=== PATIENT | female | born 1935 | race Caucasian/White ===

== ENCOUNTER → 2017-01-18 | Outpatient (REF) | payer MEDICARE, OTHER ==
[~2017-01-18] MED LIST: ADV100INH INH; ALBU17IN INH; ALPR0.25 PO; ASPI81CH32 PO; ATOR1TAB21 PO; CENTTAB12 PO; CEVI30CAP PO; CITRTAB14 PO; LANS30CA PO; OXYC1TAB23 PO; PERC5TAB6 PO; RAMI25CA PO; ROPI1TAB PO; SITA50TAB PO; TYLE325T5 PO; VITA-121 PO; VITA10002 PO; VITA1TAB23 PO; VITMTA PO; XALA0.002 OU
== END ==
LOC: M LAB REF 16:56
PROVIDERS: ATTEND Nurse Practitioner Adult Health
DX: R05 Cough (principal)

== ENCOUNTER → 2017-01-19 | Outpatient (CLI) | payer MEDICARE, OTHER ==
--- NOTE | 2017-01-19 09:06 | REP ---
CHEST X-RAY: Two views. HISTORY: Cough. Comparison study September 29, 2016. FINDINGS: There is a moderate levoconvex lower thoracic upper lumbar rotoscoliosis again noted. The patient is status post vertebroplasty in one of the mid-thoracic vertebrae which is essentially completely collapsed. There is a mild gibbous on lateral radiograph. There are clips in the upper abdomen. A bipolar pacemaker is seen in the right heart via the left side. Mild cardiac enlargement is again noted. The aorta is rather tortuous. Pleural angles are sharp. No infiltrate is seen. IMPRESSION: Mild cardiomegaly. Pacemaker. Scoliosis and prior vertebroplasty. Otherwise no acute disease. Signed by James Rangel MD 01/19/2017 12:00 P
== END ==
LOC: M SMT 08:23
PROVIDERS: ATTEND Nurse Practitioner Adult Health
DX: R05 Cough (principal); I51.7 Cardiomegaly; Z95.0 Presence of cardiac pacemaker; M41.9 Scoliosis, unspecified

== ENCOUNTER → 2017-02-02 | Outpatient (CLI) | payer MEDICARE, OTHER ==
[2017-02-02 11:46] LABS: CALCIUM LEVEL 9.3 MG/DL (8.8-10.2); CREATININE FOR GFR 1.3 MG/DL (0.55-1.02); GLOMERULAR FILTRATION RATE 41.7 (>32); POTASSIUM SERUM 4.8 MEQ/L (3.5-5.1)
--- NOTE | 2017-02-02 16:56 | REP ---
CHEST, TWO VIEWS: HISTORY: Left eye cataract. COMPARISON: 01/19/2017 The lungs are clear. The cardiac silhouette is enlarged. The pulmonary vasculature is normal in appearance. The patient is status-post kyphoplasty of a mid thoracic vertebral body. A cardiac pace maker is present. IMPRESSION: Cardiomegaly. Signed by Yordan Montoya MD 02/02/2017 04:57 P
--- NOTE | 2017-02-02 22:33 | ECGEPIP ---
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
== END ==
LOC: M LAB 09:57
PROVIDERS: ATTEND Ophthalmology
DX: Z01.818 Encounter for other preprocedural examination (principal); H25.12 Age-related nuclear cataract, left eye; E11.9 Type 2 diabetes mellitus without complications; J44.9 Chronic obstructive pulmonary disease, unspecified; I51.7 Cardiomegaly

== ENCOUNTER → 2017-02-11 | Day surgery (SDC) | payer MEDICARE, OTHER ==
[~2017-02-11] VITALS: Ht 154.9 cm; Wt 89.8 kg
[~2017-02-11] MED LIST changes: +ACETYLCHOLINE OPHTH SOLN 1% 2ML (MIOCHOL-E) As Ordered ONE; +BALANCED SALT IRRIGATION SOLUTION 500ML BAG (FOR OR EYE MACHINE) As Ordered ONE; +CEFUROXIME 1MG/0.1ML INTRACAMERAL INJ As Ordered ONE; +D5W/0.2% SODIUM CHLORIDE 250 ML IV ONE; +HEALON DUET (HEALON 10MG/ML 0.55ML & HEALON ENDOCOAT 30MG/ML 0.85ML) As Ordered ONE; +LIDOCAINE 0.75%/EPINEPHRINE 0.025% IN BSS 1ML SYR INTRACAMERAL (OR ONLY) As Ordered ONE; +LIDOCAINE 4% INJ 5 ML AMP As Ordered ONE; +MIDAZOLAM INJ 2 MG/2 ML VIAL (J2250) As Ordered ONE; +OFLOXACIN 0.3 % (OCUFLOX) OPTH SOL 5ML OS ONE; +PHENYLEPHRINE 2.5% OPHTH SOL 2ML OS ONE; +POVIDONE-IODINE 5% OPHTH PREP SOL 30ML As Ordered ONE; +PROPARACAINE 0.5% OPHTH SOL 15ML OS ONE; +TOBRADEX OPHTH OINT 3.5 GM As Ordered ONE; +TROPICAMIDE 1% OPHTH SOLN 2ML OS ONE
[2017-02-11 12:10] VITALS: BP 134/88
--- NOTE | 2017-02-11 19:09 | RO ---
DATE OF PROCEDURE: 02/11/2017 PREOPERATIVE DIAGNOSIS: Visually significant nuclear sclerotic cataract left eye. POSTOPERATIVE DIAGNOSIS: Visually significant nuclear sclerotic cataract left eye. PROCEDURE: Cataract extraction with use of phacoemulsification, and placement of intraocular lens, AU00T0 20.0D , left eye. SURGEON: Elijah Ha DO VIAL GAUGER: ANESTHESIA: Local with monitored anesthesia care (MAC). COMPLICATIONS: None. POSTOPERATIVE CONDITION: Stable. INDICATION FOR SURGERY: Blurred vision left eye affecting patient's activities of daily living. DESCRIPTION OF PROCEDURE: The patient was seen in the preoperative area and properly identified. The correct operative eye was identified and marked. Attention was turned to that eye. The patient received topical antibiotics in the preoperative area. The patient then received topical dilating drops consisting of Tropicamide and Phenylephrine. The patient was then transferred to the operating room. The correct side was re-identified. The patient received topical anesthetics and antibiotics on the surface of the eye. The eye was prepped and draped in a sterile fashion. The upper and lower eyelids were isolated with Tegaderm tape, and the lids were held open with an adjustable speculum. Using a sideport blade, a paracentesis incision was made. Intraocular preservative-free lidocaine was then injected into the anterior chamber. Viscoelastic was then injected into the anterior chamber through the paracentesis. Using a 2.65 mm sharp-tipped keratome, the anterior chamber was entered via a temporal clear corneal incision. A continuous curvilinear capsulorrhexis was created with the aid of a 26g cystotome and utrata forceps. Hydrodissection was performed with balanced salt solution (BSS) on a blunt cannula until the nucleus was freely mobile. The crystalline lens was phacoemulsified and aspirated. Additional cohesive viscoelastic was placed into the capsular bag to deepen it. A [id number] lens D was placed into the capsular bag and confirmed by visualizing the continuous curvilinear capsulorrhexis. Additional irrigation and aspiration was used to remove cortical material and remaining viscoelastic. The clear corneal incision was hydrated with BSS on a blunt cannula. The lens was well positioned. The incisions were then tested for leaks and found to be negative. The eye was then palpated for appropriate pressure and adjusted accordingly with BSS. The eyelid speculum was carefully removed. A shield was then secured over the eye. The patient tolerated the procedure well and was discharged to the recovery unit in a stable condition. DEBRA
== END | disposition home or self-care (01) ==
LOC: M SDC 08:49
PROVIDERS: ATTEND Ophthalmology
DX: H25.12 Age-related nuclear cataract, left eye (principal); E11.9 Type 2 diabetes mellitus without complications; K21.9 Gastro-esophageal reflux disease without esophagitis; K44.9 Diaphragmatic hernia without obstruction or gangrene; J44.9 Chronic obstructive pulmonary disease, unspecified; F41.9 Anxiety disorder, unspecified; Z95.0 Presence of cardiac pacemaker; Z79.82 Long term (current) use of aspirin; Z87.891 Personal history of nicotine dependence; K58.8 Other irritable bowel syndrome; Z88.2 Allergy status to sulfonamides; Z88.8 Allergy status to other drugs, medicaments and biological substances
CPT/HCPCS: 66984; J2250; V2632

== ENCOUNTER → 2017-02-25 | Day surgery (SDC) | payer MEDICARE, OTHER ==
[~2017-02-25] VITALS: Ht 154.9 cm; Wt 89.8 kg
[~2017-02-25] MED LIST changes: +DUOVISC (0.50ML VISCOAT/0.55ML PROVISC) OPHTH KIT As Ordered ONE; -HEALON DUET (HEALON 10MG/ML 0.55ML & HEALON ENDOCOAT 30MG/ML 0.85ML) As Ordered ONE; +MECL-68 PO; -MIDAZOLAM INJ 2 MG/2 ML VIAL (J2250) As Ordered ONE; +OFLOXACIN 0.3 % (OCUFLOX) OPTH SOL 5ML OD ONE; -OFLOXACIN 0.3 % (OCUFLOX) OPTH SOL 5ML OS ONE; +PERC5TAB12 PO; -PERC5TAB6 PO; +PHENYLEPHRINE 2.5% OPHTH SOL 2ML OD ONE; -PHENYLEPHRINE 2.5% OPHTH SOL 2ML OS ONE; +PROPARACAINE 0.5% OPHTH SOL 15ML OD ONE; -PROPARACAINE 0.5% OPHTH SOL 15ML OS ONE; -TOBRADEX OPHTH OINT 3.5 GM As Ordered ONE; +TROPICAMIDE 1% OPHTH SOLN 2ML OD ONE; -TROPICAMIDE 1% OPHTH SOLN 2ML OS ONE; -XALA0.002 OU; +XALA0.007 OU
== END | disposition home or self-care (01) ==
LOC: M SDC 08:19
PROVIDERS: ATTEND Ophthalmology
DX: H25.11 Age-related nuclear cataract, right eye (principal); Z53.8 Procedure and treatment not carried out for other reasons

== ENCOUNTER → 2017-03-11 | Day surgery (SDC) | payer MEDICARE, OTHER ==
[~2017-03-11] VITALS: Ht 154.9 cm; Wt 89.8 kg
[~2017-03-11] MED LIST changes: -D5W/0.2% SODIUM CHLORIDE 250 ML IV ONE; +LR 1,000 ML IV SCH; +LR 500 ML IV SCH; +MIDAZOLAM INJ 2 MG/2 ML VIAL (J2250) As Ordered ONE; +ONDANSETRON 4MG/2ML VIAL (J2405) IV PRN; +fentaNYL 100 MCG/2 ML INJECTION (J3010) As Ordered ONE
[2017-03-11 12:35] VITALS: BP 101/51
--- NOTE | 2017-03-12 22:32 | RO ---
DATE OF PROCEDURE: 03/11/2017 PREOPERATIVE DIAGNOSIS: Visually significant nuclear sclerotic cataract right eye. POSTOPERATIVE DIAGNOSIS: Visually significant nuclear sclerotic cataract right eye. PROCEDURE: Cataract extraction with use of phacoemulsification, and placement of intraocular lens, AU00T0, 20.0D , right eye. SURGEON: Elijah Ha DO MANAGER ENTRY: ANESTHESIA: Local with monitored anesthesia care (MAC). COMPLICATIONS: None. POSTOPERATIVE CONDITION: Stable. INDICATION FOR SURGERY: Blurred vision right eye affecting patient's activities of daily living. DESCRIPTION OF PROCEDURE: The patient was seen in the preoperative area and properly identified. The correct operative eye was identified and marked. Attention was turned to that eye. The patient received topical antibiotics in the preoperative area. The patient then received topical dilating drops consisting of Tropicamide and Phenylephrine. The patient was then transferred to the operating room. The correct side was re-identified. The patient received topical anesthetics and antibiotics on the surface of the eye. The eye was prepped and draped in a sterile fashion. The upper and lower eyelids were isolated with Tegaderm tape, and the lids were held open with an adjustable speculum. Using a sideport blade, a paracentesis incision was made. Intraocular preservative-free lidocaine was then injected into the anterior chamber. Viscoelastic was then injected into the anterior chamber through the paracentesis. Using a 2.6 mm sharp-tipped keratome, the anterior chamber was entered via a temporal clear corneal incision. A continuous curvilinear capsulorrhexis was created with the aid of a 26g cystotome and utrata forceps. Hydrodissection was performed with balanced salt solution (BSS) on a blunt cannula until the nucleus was freely mobile. The crystalline lens was phacoemulsified and aspirated. Additional cohesive viscoelastic was placed into the capsular bag to deepen it. An AU00T0, 20.0D lens was placed into the capsular bag and confirmed by visualizing the continuous curvilinear capsulorrhexis. Additional irrigation and aspiration was used to remove cortical material and remaining viscoelastic. The clear corneal incision was hydrated with BSS on a blunt cannula. The lens was well positioned. The incisions were then tested for leaks and found to be negative. The eye was then palpated for appropriate pressure and adjusted accordingly with BSS. The eyelid speculum was carefully removed. A shield was placed over the eye. The patient tolerated the procedure well and was discharged to the recovery unit in a stable condition. DEBRA
== END | disposition home or self-care (01) ==
LOC: M SDC 09:52 → EEVIPCON 11:45
PROVIDERS: ATTEND Ophthalmology
DX: H25.11 Age-related nuclear cataract, right eye (principal); E78.5 Hyperlipidemia, unspecified; J44.9 Chronic obstructive pulmonary disease, unspecified; Z79.82 Long term (current) use of aspirin; Z88.8 Allergy status to other drugs, medicaments and biological substances; Z88.2 Allergy status to sulfonamides; Z95.0 Presence of cardiac pacemaker; F41.9 Anxiety disorder, unspecified
CPT/HCPCS: 66984; J2250; J3010; V2632

== ENCOUNTER 2017-05-06 14:50 | Emergency (ER) | payer MEDICARE, OTHER ==
[~2017-05-06] VITALS: Ht 162.6 cm; Wt 104.5 kg
[~2017-05-06 14:50] MED LIST changes: -ACETYLCHOLINE OPHTH SOLN 1% 2ML (MIOCHOL-E) As Ordered ONE; -BALANCED SALT IRRIGATION SOLUTION 500ML BAG (FOR OR EYE MACHINE) As Ordered ONE; -CEFUROXIME 1MG/0.1ML INTRACAMERAL INJ As Ordered ONE; -DUOVISC (0.50ML VISCOAT/0.55ML PROVISC) OPHTH KIT As Ordered ONE; -LIDOCAINE 0.75%/EPINEPHRINE 0.025% IN BSS 1ML SYR INTRACAMERAL (OR ONLY) As Ordered ONE; -LIDOCAINE 4% INJ 5 ML AMP As Ordered ONE; -LR 1,000 ML IV SCH; -LR 500 ML IV SCH; -MECL-68 PO; -MIDAZOLAM INJ 2 MG/2 ML VIAL (J2250) As Ordered ONE; -OFLOXACIN 0.3 % (OCUFLOX) OPTH SOL 5ML OD ONE; -ONDANSETRON 4MG/2ML VIAL (J2405) IV PRN; -PHENYLEPHRINE 2.5% OPHTH SOL 2ML OD ONE; -POVIDONE-IODINE 5% OPHTH PREP SOL 30ML As Ordered ONE; -PROPARACAINE 0.5% OPHTH SOL 15ML OD ONE; -TROPICAMIDE 1% OPHTH SOLN 2ML OD ONE; -fentaNYL 100 MCG/2 ML INJECTION (J3010) As Ordered ONE
--- NOTE | 2017-05-06 15:41 | REP ---
CT Head without contrast HISTORY: Dizziness COMPARISON: 09/29/2016 Areas of decreased attenuation are present in the periventricular white matter. This represents small-vessel ischemic disease. Calcifications are present in the ursula. There is no intraparenchymal hemorrhage, acute infarct, mass or midline shift. The ventricular system and cortical sulci as well as subarachnoid space in the posterior fossa are dilated consistent with mild volume loss. There is no extra cerebral collection. There is hyperostosis frontalis interna. There is no fracture. The visualized sinuses are clear. IMPRESSION: 1. Small vessel ischemic disease. 2. Mild volume loss. Signed by Yordan Montoya MD 05/06/2017 03:33 P
[2017-05-06] MEDS ORDERED: ONDANSETRON 4 MG ORAL DISINTEGRATING TAB (S0181) PO ONE (15:45)
[2017-05-06] MEDS ORDERED: MECLIZINE 25 MG TABLET PO ONE (15:45)
[2017-05-06 18:29] LABS: CALCIUM LEVEL 8.8 MG/DL (8.8-10.2); CREATININE FOR GFR 1.36 MG/DL (0.55-1.02); GLOMERULAR FILTRATION RATE 39.5 (>32); POTASSIUM SERUM 4.5 MEQ/L (3.5-5.1)
[2017-05-06] MEDS ORDERED: MECL-68 PO (18:30)
[2017-05-06 18:58] VITALS: BP 136/60
[2017-05-06 21:05] LABS: BASO % 0.4 % (0.0-1.0); EOS # 0.5 K/mm3 (0.0-0.50); EOS % 5.6 % (0.0-3.0); LARGE UNSTAINED CELL # 0.1 K/mm3 (0.0-0.4); LARGE UNSTAINED CELL % 1.1 % (0.0-4.0); LYMPH # 1.2 K/mm3 (1.5-4.5); MEAN CORPUSCULAR HEMOGLOBIN 26.6 pg (27.0-33.0); MEAN CORPUSCULAR VOLUME 83.1 fl (80.0-96.0); MONO # 0.4 K/mm3 (0.0-0.8); MONO % 4.6 % (0.0-5.0); NEUTROPHILS # 6.5 K/mm3 (1.8-7.7); NEUTROPHILS % 74.3 % (36.0-66.0); PLATELET COUNT, AUTOMATED 224 k/mm3 (150-450); RED CELL DISTRIBUTION WIDTH 14.4 % (11.5-14.5); WHITE BLOOD COUNT 8.7 K/mm3 (4.0-10.0)
== END 2017-05-06 19:00 | disposition home or self-care (01) ==
LOC: M ED 14:50
DX: H83.09 Labyrinthitis, unspecified ear (principal); E11.9 Type 2 diabetes mellitus without complications; I10 Essential (primary) hypertension; G47.33 Obstructive sleep apnea (adult) (pediatric); G25.81 Restless legs syndrome; F95.9 Tic disorder, unspecified; M48.00 Spinal stenosis, site unspecified; J44.9 Chronic obstructive pulmonary disease, unspecified; Z95.0 Presence of cardiac pacemaker; Z88.8 Allergy status to other drugs, medicaments and biological substances; Z88.5 Allergy status to narcotic agent; Z88.1 Allergy status to other antibiotic agents; Z88.2 Allergy status to sulfonamides; Z79.899 Other long term (current) drug therapy; Z79.84 Long term (current) use of oral hypoglycemic drugs; Z79.82 Long term (current) use of aspirin; Z79.51 Long term (current) use of inhaled steroids

== ENCOUNTER 2017-11-27 09:14 | Emergency (ER) | payer MEDICARE, OTHER | END 2017-11-27 14:04 | disposition home or self-care (01) | LOC: M ED 09:14 | DX: S39.012A Strain of muscle, fascia and tendon of lower back, initial encounter (principal); S70.01XA Contusion of right hip, initial encounter; S70.02XA Contusion of left hip, initial encounter; S93.401A Sprain of unspecified ligament of right ankle, initial encounter; W19.XXXA Unspecified fall, initial encounter; Y92.099 Unspecified place in other non-institutional residence as the place of occurrence of the external cause; Y93.9 Activity, unspecified; I10 Essential (primary) hypertension; H40.9 Unspecified glaucoma; J44.9 Chronic obstructive pulmonary disease, unspecified; Z87.01 Personal history of pneumonia (recurrent); Z90.49 Acquired absence of other specified parts of digestive tract; M85.80 Other specified disorders of bone density and structure, unspecified site; M77.31 Calcaneal spur, right foot; M17.11 Unilateral primary osteoarthritis, right knee; M17.12 Unilateral primary osteoarthritis, left knee; M43.16 Spondylolisthesis, lumbar region; M19.079 Primary osteoarthritis, unspecified ankle and foot; Z79.82 Long term (current) use of aspirin; Z79.899 Other long term (current) drug therapy; Z88.5 Allergy status to narcotic agent; Z88.2 Allergy status to sulfonamides; Z88.8 Allergy status to other drugs, medicaments and biological substances | CPT/HCPCS: 72110 ==

== ENCOUNTER 2017-11-29 06:19 | Inpatient (IN) | payer MEDICARE, OTHER ==
[2017-11-29 08:12] LABS: BASO # 0.1 10^3/uL (0.0-0.2); BASO % 0.4 % (0.0-1.0); EOS # 0.1 10^3/uL (0.0-0.50); EOS % 0.4 % (0.0-3.0); HEMATOCRIT 38.9 % (36.0-47.0); HEMOGLOBIN 12.3 g/dl (12.0-16.0); IMMATURE GRANULOCYTE % 0.6 % (0-3.0); LYMPH # 1.2 10^3/uL (1.5-4.5); LYMPH % 8.7 % (24.0-44.0); MEAN CORPUSCULAR HEMOGLOBIN 25.8 pg (27.0-33.0); MEAN CORPUSCULAR HGB CONC 31.6 g/dl (32.0-36.5); MEAN CORPUSCULAR VOLUME 81.7 fl (80.0-96.0); MONO # 0.9 10^3/uL (0.0-0.8); MONO % 6.5 % (0.0-5.0); NEUTROPHILS # 11.5 10^3/uL (1.8-7.7); NEUTROPHILS % 83.4 % (36.0-66.0); PLATELET COUNT, AUTOMATED 237 10^3/uL (150-450); RED BLOOD COUNT 4.76 10^6/uL (4.00-5.40); RED CELL DISTRIBUTION WIDTH 15.1 % (11.5-14.5); WHITE BLOOD COUNT 13.7 10^3/uL (4.0-10.0)
[2017-11-29 08:24] LABS: ANION GAP 7 MEQ/L (8-16); BLOOD UREA NITROGEN 25 MG/DL (7-18); CALCIUM LEVEL 9.3 MG/DL (8.8-10.2); CARBON DIOXIDE LEVEL 28 MEQ/L (21-32); CHLORIDE LEVEL 105 MEQ/L (98-107); CREATININE FOR GFR 1.23 MG/DL (0.55-1.30); GLOMERULAR FILTRATION RATE 44.4 (>32); GLUCOSE, FASTING 151 MG/DL (70-100); POTASSIUM SERUM 3.8 MEQ/L (3.5-5.1); SODIUM LEVEL 140 MEQ/L (136-145); URIC ACID 7.2 MG/DL (2.6-6.0)
[2017-11-29 08:46] LABS: ERYTHROCYTE SEDIMENTATION RATE 62 mm/hr (0-30)
[2017-11-29] MEDS: VITAMIN D 1,000 INTERNATIONAL UNITS TABLET PO (09:00)
[2017-11-29] MEDS ORDERED: ONDANSETRON 4MG/2ML VIAL (J2405) IV (10:15)
[2017-11-29] MEDS: DOCUSATE SODIUM 100 MG CAP PO ×2 (10:31→21:03)
[2017-11-29] MEDS ORDERED: ALBUTEROL 90 MCG/ACT 8GM HFA INHALER INH (14:45)
[2017-11-29] MEDS ORDERED: POLYVINYL ALCOHOL OPHTH SOLN 15 ML(LIQUITEARS) OU (14:45)
[2017-11-29] MEDS: CHLORTHALIDONE 12.5MG PER 1/2 TABLET PO (16:54)
[2017-11-29] MEDS: HEPARIN SOD (PORCINE) 5000 UNITS/ML VIAL SC ×2 (16:54→21:04)
[2017-11-29] MEDS: ASPIRIN 81 MG ENTERIC TAB PO (16:55)
[2017-11-29] MEDS: CYANOCOBALAMIN 500 MCG TAB PO (16:55)
[2017-11-29] MEDS: ALPRAZolam 0.25 MG TAB PO (16:55)
[2017-11-29] MEDS: PERCOCET 5MG/325MG TAB PO ×2 (16:55→21:04)
[2017-11-29] MEDS: MULTIVITAMINS/MINERALS THERAP 1 TAB PO (16:55)
[2017-11-29] MEDS: SITagliptin 50 MG TAB (JANUVIA) PO (16:58)
[2017-11-29] MEDS ORDERED: HEPARIN SOD (PORCINE) 5000 UNITS/ML VIAL As Ordered (20:54)
[2017-11-29] MEDS ORDERED: NON-FORMULARY COMPOUNDED MEDICATION PO (21:00)
[2017-11-29] MEDS: LATANOPROST 0.005% OPHTH SOLN 2.5 ML OU (21:00)
[2017-11-29] MEDS: ATORVASTATIN 20 MG TAB PO (21:03)
[2017-11-29] MEDS: OMEPRAZOLE 20 MG CAP PO (21:03)
[2017-11-30] MEDS: HEPARIN SOD (PORCINE) 5000 UNITS/ML VIAL SC ×3 (06:07→21:35)
[2017-11-30] MEDS: PERCOCET 5MG/325MG TAB PO ×3 (06:07→21:35)
[2017-11-30 06:38] LABS: HEMOGLOBIN 11.6 g/dl (12.0-16.0); MEAN CORPUSCULAR HEMOGLOBIN 26.1 pg (27.0-33.0); MEAN CORPUSCULAR HGB CONC 31.4 g/dl (32.0-36.5); MEAN CORPUSCULAR VOLUME 83.3 fl (80.0-96.0); PLATELET COUNT, AUTOMATED 198 10^3/uL (150-450); RED BLOOD COUNT 4.44 10^6/uL (4.00-5.40); RED CELL DISTRIBUTION WIDTH 15.3 % (11.5-14.5); WHITE BLOOD COUNT 12.5 10^3/uL (4.0-10.0)
[2017-11-30 06:46] LABS: ANION GAP 7 MEQ/L (8-16); BLOOD UREA NITROGEN 28 MG/DL (7-18); CARBON DIOXIDE LEVEL 28 MEQ/L (21-32); CHLORIDE LEVEL 105 MEQ/L (98-107); CREATININE FOR GFR 1.23 MG/DL (0.55-1.30); GLOMERULAR FILTRATION RATE 44.4 (>32); GLUCOSE, FASTING 152 MG/DL (70-100); POTASSIUM SERUM 4.2 MEQ/L (3.5-5.1); SODIUM LEVEL 140 MEQ/L (136-145)
[2017-11-30] MEDS: VITAMIN D 1,000 INTERNATIONAL UNITS TABLET PO (09:49)
[2017-11-30] MEDS: CYANOCOBALAMIN 500 MCG TAB PO (09:49)
[2017-11-30] MEDS: OMEPRAZOLE 20 MG CAP PO ×2 (09:49→21:35)
[2017-11-30] MEDS: DOCUSATE SODIUM 100 MG CAP PO ×2 (09:49→21:00)
[2017-11-30] MEDS: MULTIVITAMINS/MINERALS THERAP 1 TAB PO (09:50)
[2017-11-30] MEDS: ALPRAZolam 0.25 MG TAB PO (09:50)
[2017-11-30] MEDS: ASPIRIN 81 MG ENTERIC TAB PO (09:50)
[2017-11-30] MEDS: SITagliptin 50 MG TAB (JANUVIA) PO (09:50)
[2017-11-30] MEDS: methylPREDNISolone INJ 125 MG/2 ML VIAL (J2930) IV (15:08)
[2017-11-30] MEDS: COLCHICINE 0.6 MG TAB PO ×2 (15:39→21:35)
[2017-11-30] MEDS: HumaLOG INSULIN (NovoLOG) PER UNIT SC ×2 (18:38→21:00)
[2017-11-30] MEDS ORDERED: HEPARIN SOD (PORCINE) 5000 UNITS/ML VIAL As Ordered (21:21)
[2017-11-30] MEDS: ATORVASTATIN 20 MG TAB PO (21:35)
[2017-11-30] MEDS: LATANOPROST 0.005% OPHTH SOLN 2.5 ML OU (21:37)
[2017-12-01] MEDS: HEPARIN SOD (PORCINE) 5000 UNITS/ML VIAL SC ×3 (06:00→22:03)
[2017-12-01 06:25] LABS: HEMATOCRIT 38.6 % (36.0-47.0); HEMOGLOBIN 12.5 g/dl (12.0-16.0); MEAN CORPUSCULAR HEMOGLOBIN 26.3 pg (27.0-33.0); MEAN CORPUSCULAR HGB CONC 32.4 g/dl (32.0-36.5); MEAN CORPUSCULAR VOLUME 81.3 fl (80.0-96.0); PLATELET COUNT, AUTOMATED 234 10^3/uL (150-450); RED BLOOD COUNT 4.75 10^6/uL (4.00-5.40); RED CELL DISTRIBUTION WIDTH 14.6 % (11.5-14.5); WHITE BLOOD COUNT 12.2 10^3/uL (4.0-10.0)
[2017-12-01 06:43] LABS: ANION GAP 9 MEQ/L (8-16); BLOOD UREA NITROGEN 28 MG/DL (7-18); CALCIUM LEVEL 9.1 MG/DL (8.8-10.2); CARBON DIOXIDE LEVEL 25 MEQ/L (21-32); CHLORIDE LEVEL 106 MEQ/L (98-107); CREATININE FOR GFR 1.12 MG/DL (0.55-1.30); GLOMERULAR FILTRATION RATE 49.5 (>32); GLUCOSE, FASTING 176 MG/DL (70-100); POTASSIUM SERUM 4.1 MEQ/L (3.5-5.1); SODIUM LEVEL 140 MEQ/L (136-145); URIC ACID 7.2 MG/DL (2.6-6.0)
[2017-12-01] MEDS: HumaLOG INSULIN (NovoLOG) PER UNIT SC ×4 (08:36→22:03)
[2017-12-01] MEDS: CYANOCOBALAMIN 500 MCG TAB PO (08:36)
[2017-12-01] MEDS: OMEPRAZOLE 20 MG CAP PO ×2 (08:37→22:03)
[2017-12-01] MEDS: CHLORTHALIDONE 12.5MG PER 1/2 TABLET PO (08:37)
[2017-12-01] MEDS: DOCUSATE SODIUM 100 MG CAP PO ×2 (08:37→22:03)
[2017-12-01] MEDS: ASPIRIN 81 MG ENTERIC TAB PO (08:38)
[2017-12-01] MEDS: MULTIVITAMINS/MINERALS THERAP 1 TAB PO (08:38)
[2017-12-01] MEDS: ALPRAZolam 0.25 MG TAB PO (08:38)
[2017-12-01] MEDS: VITAMIN D 1,000 INTERNATIONAL UNITS TABLET PO (08:38)
[2017-12-01] MEDS: COLCHICINE 0.6 MG TAB PO ×2 (08:41→22:03)
[2017-12-01] MEDS ORDERED: PILL CUTTER/CRUSHER XX ×2 (09:45→10:00)
[2017-12-01 10:08] LABS: APPEARANCE, URINE CLEAR (CLEAR); BACTERIA, URINE AUTO 1+ (NEGATIVE); BILIRUBIN, URINE AUTO NEGATIVE (NEGATIVE); BLOOD, URINE BLOOD NEGATIVE (NEGATIVE); COLOR, URINE YELLOW (YELLOW); GLUCOSE, URINE (UA) AUTO 1+ mg/dL (NEGATIVE); KETONE, URINE AUTO NEGATIVE (NEGATIVE); LEUKOCYTE ESTERASE, URINE AUTO TRACE (NEGATIVE); NITRITE, URINE AUTO NEGATIVE (NEGATIVE); PROTEIN, URINE AUTO NEGATIVE (NEGATIVE); RBC, URINE AUTO 1 /HPF (0-3); SPECIFIC GRAVITY URINE AUTO 1.015 (1.002-1.035); SQUAMOUS EPITHELIAL CELL UR AU 2 /HPF (0-6); UROBILINOGEN, URINE AUTO 0.2 mg/dL (0.0-2.0); WBC, URINE AUTO 4 /HPF (0-3)
[2017-12-01] MEDS ORDERED: CEFTRIAXONE SOD 1 GM in APPROPRIATE DILUENT 1 EA IV (10:45)
[2017-12-01] MEDS: SITagliptin 50 MG TAB (JANUVIA) PO (11:09)
[2017-12-01 11:29] LABS: BEDSIDE GLUCOSE 251 MG/DL (83-110)
[2017-12-01 11:29] LABS: BEDSIDE GLUCOSE 114 MG/DL (83-110)
[2017-12-01 11:29] LABS: BEDSIDE GLUCOSE 226 MG/DL (83-110)
[2017-12-01] MEDS: CEFTRIAXONE SOD 1 GM in APPROPRIATE DILUENT 1 EA IV (13:50)
[2017-12-01] MEDS: ATORVASTATIN 20 MG TAB PO (22:03)
[2017-12-01] MEDS: LATANOPROST 0.005% OPHTH SOLN 2.5 ML OU (22:03)
[2017-12-01] MEDS: PERCOCET 5MG/325MG TAB PO (22:14)
[2017-12-02] MEDS: HEPARIN SOD (PORCINE) 5000 UNITS/ML VIAL SC ×3 (06:40→22:18)
[2017-12-02 08:06] LABS: HEMATOCRIT 38.4 % (36.0-47.0); HEMOGLOBIN 12.3 g/dl (12.0-16.0); MEAN CORPUSCULAR HEMOGLOBIN 26.2 pg (27.0-33.0); MEAN CORPUSCULAR VOLUME 81.7 fl (80.0-96.0); PLATELET COUNT, AUTOMATED 267 10^3/uL (150-450); RED CELL DISTRIBUTION WIDTH 14.7 % (11.5-14.5); WHITE BLOOD COUNT 12.1 10^3/uL (4.0-10.0)
[2017-12-02 08:25] LABS: ANION GAP 6 MEQ/L (8-16); BLOOD UREA NITROGEN 40 MG/DL (7-18); CALCIUM LEVEL 9.1 MG/DL (8.8-10.2); CARBON DIOXIDE LEVEL 27 MEQ/L (21-32); CHLORIDE LEVEL 107 MEQ/L (98-107); CREATININE FOR GFR 1.21 MG/DL (0.55-1.30); GLOMERULAR FILTRATION RATE 45.2 (>32); GLUCOSE, FASTING 139 MG/DL (70-100); POTASSIUM SERUM 4.1 MEQ/L (3.5-5.1); SODIUM LEVEL 140 MEQ/L (136-145)
[2017-12-02] MEDS: HumaLOG INSULIN (NovoLOG) PER UNIT SC ×4 (08:31→20:31)
[2017-12-02] MEDS: SITagliptin 50 MG TAB (JANUVIA) PO (08:32)
[2017-12-02] MEDS: DOCUSATE SODIUM 100 MG CAP PO ×2 (08:32→20:28)
[2017-12-02] MEDS: OMEPRAZOLE 20 MG CAP PO ×2 (08:32→20:28)
[2017-12-02] MEDS: VITAMIN D 1,000 INTERNATIONAL UNITS TABLET PO (08:32)
[2017-12-02] MEDS: ALPRAZolam 0.25 MG TAB PO (08:32)
[2017-12-02] MEDS: COLCHICINE 0.6 MG TAB PO ×2 (08:32→20:27)
[2017-12-02] MEDS: ASPIRIN 81 MG ENTERIC TAB PO (08:32)
[2017-12-02] MEDS: MULTIVITAMINS/MINERALS THERAP 1 TAB PO (08:32)
[2017-12-02] MEDS: CYANOCOBALAMIN 500 MCG TAB PO (08:32)
[2017-12-02] MEDS: NON-FORMULARY COMPOUNDED MEDICATION OU (09:00)
[2017-12-02] MEDS: CEFTRIAXONE SOD 1 GM in APPROPRIATE DILUENT 1 EA IV (12:55)
[2017-12-02] MEDS: LATANOPROST 0.005% OPHTH SOLN 2.5 ML OU (20:28)
[2017-12-02] MEDS: ATORVASTATIN 20 MG TAB PO (20:28)
[2017-12-03] MEDS: HEPARIN SOD (PORCINE) 5000 UNITS/ML VIAL SC ×3 (05:34→20:39)
[2017-12-03 07:01] LABS: HEMATOCRIT 36.4 % (36.0-47.0); HEMOGLOBIN 11.6 g/dl (12.0-15.5); MEAN CORPUSCULAR HGB CONC 31.9 g/dl (32.0-36.5); MEAN CORPUSCULAR VOLUME 81.4 fl (80.0-96.0); PLATELET COUNT, AUTOMATED 275 10^3/uL (150-450); RED BLOOD COUNT 4.47 10^6/uL (4.00-5.40); RED CELL DISTRIBUTION WIDTH 14.9 % (11.5-14.5); WHITE BLOOD COUNT 8.1 10^3/uL (4.0-10.0)
[2017-12-03 07:21] LABS: ANION GAP 8 MEQ/L (8-16); BLOOD UREA NITROGEN 42 MG/DL (7-18); CALCIUM LEVEL 8.2 MG/DL (8.8-10.2); CARBON DIOXIDE LEVEL 25 MEQ/L (21-32); CHLORIDE LEVEL 112 MEQ/L (98-107); CREATININE FOR GFR 1.19 MG/DL (0.55-1.30); GLOMERULAR FILTRATION RATE 46.1 (>32); GLUCOSE, FASTING 141 MG/DL (70-100); POTASSIUM SERUM 3.9 MEQ/L (3.5-5.1); SODIUM LEVEL 145 MEQ/L (136-145)
[2017-12-03] MEDS: HumaLOG INSULIN (NovoLOG) PER UNIT SC ×4 (08:49→21:00)
[2017-12-03] MEDS: MULTIVITAMINS/MINERALS THERAP 1 TAB PO (08:50)
[2017-12-03] MEDS: ALPRAZolam 0.25 MG TAB PO (08:50)
[2017-12-03] MEDS: ASPIRIN 81 MG ENTERIC TAB PO (08:50)
[2017-12-03] MEDS: OMEPRAZOLE 20 MG CAP PO ×2 (08:50→20:37)
[2017-12-03] MEDS: CYANOCOBALAMIN 500 MCG TAB PO (08:50)
[2017-12-03] MEDS: SITagliptin 50 MG TAB (JANUVIA) PO (08:50)
[2017-12-03] MEDS: CHLORTHALIDONE 12.5MG PER 1/2 TABLET PO (08:50)
[2017-12-03] MEDS: VITAMIN D 1,000 INTERNATIONAL UNITS TABLET PO (08:50)
[2017-12-03] MEDS: DOCUSATE SODIUM 100 MG CAP PO ×2 (08:51→20:39)
[2017-12-03] MEDS: NITROFURANTOIN 50 MG CAP PO (12:00)
[2017-12-03] MEDS: CIPROFLOXACIN 500 MG TAB PO (14:27)
[2017-12-03] MEDS: ACETAMINOPHEN TAB 650MG DOSE (2X325MG) PO (20:37)
[2017-12-03] MEDS: ATORVASTATIN 20 MG TAB PO (20:37)
[2017-12-03] MEDS: LATANOPROST 0.005% OPHTH SOLN 2.5 ML OU (20:38)
[2017-12-03 22:00] LABS: BEDSIDE GLUCOSE 147 MG/DL (83-110)
[2017-12-03 22:00] LABS: BEDSIDE GLUCOSE 180 MG/DL (83-110)
[2017-12-03 22:00] LABS: BEDSIDE GLUCOSE 164 MG/DL (83-110)
[2017-12-03 22:00] LABS: BEDSIDE GLUCOSE 126 MG/DL (83-110)
[2017-12-03 22:01] LABS: BEDSIDE GLUCOSE 171 MG/DL (83-110)
[2017-12-03 22:01] LABS: BEDSIDE GLUCOSE 174 MG/DL (83-110)
[2017-12-03 22:01] LABS: BEDSIDE GLUCOSE 119 MG/DL (83-110)
[2017-12-03 22:01] LABS: BEDSIDE GLUCOSE 87 MG/DL (83-110)
[2017-12-03 22:01] LABS: BEDSIDE GLUCOSE 129 MG/DL (83-110)
[2017-12-03 22:01] LABS: BEDSIDE GLUCOSE 130 MG/DL (83-110)
[2017-12-04] MEDS: CIPROFLOXACIN 500 MG TAB PO ×2 (04:59→16:55)
[2017-12-04] MEDS: HEPARIN SOD (PORCINE) 5000 UNITS/ML VIAL SC ×3 (04:59→21:26)
[2017-12-04 06:55] LABS: MEAN CORPUSCULAR HEMOGLOBIN 26.1 pg (27.0-33.0); MEAN CORPUSCULAR HGB CONC 31.6 g/dl (32.0-36.5); MEAN CORPUSCULAR VOLUME 82.6 fl (80.0-96.0); PLATELET COUNT, AUTOMATED 268 10^3/uL (150-450); WHITE BLOOD COUNT 7.5 10^3/uL (4.0-10.0)
[2017-12-04 07:09] LABS: ANION GAP 8 MEQ/L (8-16); BLOOD UREA NITROGEN 34 MG/DL (7-18); CALCIUM LEVEL 9.2 MG/DL (8.8-10.2); CARBON DIOXIDE LEVEL 24 MEQ/L (21-32); CHLORIDE LEVEL 111 MEQ/L (98-107); CREATININE FOR GFR 1.13 MG/DL (0.55-1.30); GLUCOSE, FASTING 117 MG/DL (70-100); POTASSIUM SERUM 3.5 MEQ/L (3.5-5.1); SODIUM LEVEL 143 MEQ/L (136-145)
[2017-12-04] MEDS: ASPIRIN 81 MG ENTERIC TAB PO (08:04)
[2017-12-04] MEDS: VITAMIN D 1,000 INTERNATIONAL UNITS TABLET PO (08:04)
[2017-12-04] MEDS: ALPRAZolam 0.25 MG TAB PO (08:05)
[2017-12-04] MEDS: DOCUSATE SODIUM 100 MG CAP PO ×2 (08:05→21:26)
[2017-12-04] MEDS: SITagliptin 50 MG TAB (JANUVIA) PO (08:05)
[2017-12-04] MEDS: CEFDINIR 300 MG CAP (OMNICEF) PO ×2 (08:05→21:26)
[2017-12-04] MEDS: CYANOCOBALAMIN 500 MCG TAB PO (08:05)
[2017-12-04] MEDS: MULTIVITAMINS/MINERALS THERAP 1 TAB PO (08:05)
[2017-12-04] MEDS: HumaLOG INSULIN (NovoLOG) PER UNIT SC ×4 (08:06→20:58)
[2017-12-04] MEDS: OMEPRAZOLE 20 MG CAP PO ×2 (08:06→21:26)
[2017-12-04] MEDS: NYSTATIN 100,000 UNITS/GM TOPICAL PWD 15 GM TOP (10:56)
[2017-12-04] MEDS: LATANOPROST 0.005% OPHTH SOLN 2.5 ML OU (21:00)
[2017-12-04] MEDS: ATORVASTATIN 20 MG TAB PO (21:26)
[2017-12-05 03:22] LABS: BEDSIDE GLUCOSE 116 MG/DL (83-110)
[2017-12-05 03:22] LABS: BEDSIDE GLUCOSE 112 MG/DL (83-110)
[2017-12-05 03:22] LABS: BEDSIDE GLUCOSE 126 MG/DL (83-110)
[2017-12-05] MEDS: CIPROFLOXACIN 500 MG TAB PO ×2 (05:34→18:12)
[2017-12-05] MEDS: HEPARIN SOD (PORCINE) 5000 UNITS/ML VIAL SC ×3 (05:34→22:47)
[2017-12-05 06:36] LABS: HEMOGLOBIN 11.9 g/dl (12.0-15.5); MEAN CORPUSCULAR HGB CONC 32.2 g/dl (32.0-36.5); MEAN CORPUSCULAR VOLUME 80.8 fl (80.0-96.0); PLATELET COUNT, AUTOMATED 282 10^3/uL (150-450); RED BLOOD COUNT 4.58 10^6/uL (4.00-5.40); RED CELL DISTRIBUTION WIDTH 14.8 % (11.5-14.5); WHITE BLOOD COUNT 9.2 10^3/uL (4.0-10.0)
[2017-12-05 06:52] LABS: ANION GAP 7 MEQ/L (8-16); BLOOD UREA NITROGEN 29 MG/DL (7-18); CALCIUM LEVEL 9.2 MG/DL (8.8-10.2); CARBON DIOXIDE LEVEL 25 MEQ/L (21-32); CHLORIDE LEVEL 111 MEQ/L (98-107); CREATININE FOR GFR 1.14 MG/DL (0.55-1.30); GLOMERULAR FILTRATION RATE 48.5 (>32); GLUCOSE, FASTING 112 MG/DL (70-100); POTASSIUM SERUM 3.8 MEQ/L (3.5-5.1); SODIUM LEVEL 143 MEQ/L (136-145)
[2017-12-05] MEDS: DOCUSATE SODIUM 100 MG CAP PO ×2 (08:12→22:48)
[2017-12-05] MEDS: ASPIRIN 81 MG ENTERIC TAB PO (08:12)
[2017-12-05] MEDS: CYANOCOBALAMIN 500 MCG TAB PO (08:12)
[2017-12-05] MEDS: HumaLOG INSULIN (NovoLOG) PER UNIT SC ×4 (08:12→21:00)
[2017-12-05] MEDS: CEFDINIR 300 MG CAP (OMNICEF) PO ×2 (08:12→22:47)
[2017-12-05] MEDS: VITAMIN D 1,000 INTERNATIONAL UNITS TABLET PO (08:12)
[2017-12-05] MEDS: SITagliptin 50 MG TAB (JANUVIA) PO (08:12)
[2017-12-05] MEDS: MULTIVITAMINS/MINERALS THERAP 1 TAB PO (08:12)
[2017-12-05] MEDS: ALPRAZolam 0.25 MG TAB PO (08:12)
[2017-12-05] MEDS: OMEPRAZOLE 20 MG CAP PO ×2 (08:12→22:48)
[2017-12-05] MEDS: NYSTATIN 100,000 UNITS/GM TOPICAL PWD 15 GM TOP (08:13)
[2017-12-05] MEDS: LATANOPROST 0.005% OPHTH SOLN 2.5 ML OU (21:00)
[2017-12-05] MEDS: ATORVASTATIN 20 MG TAB PO (22:48)
[2017-12-06] MEDS: CIPROFLOXACIN 500 MG TAB PO (06:00)
[2017-12-06] MEDS: HEPARIN SOD (PORCINE) 5000 UNITS/ML VIAL SC (06:00)
[2017-12-06 07:05] LABS: HEMATOCRIT 37.4 % (36.0-47.0); HEMOGLOBIN 11.7 g/dl (12.0-15.5); MEAN CORPUSCULAR HEMOGLOBIN 25.9 pg (27.0-33.0); MEAN CORPUSCULAR HGB CONC 31.3 g/dl (32.0-36.5); MEAN CORPUSCULAR VOLUME 82.9 fl (80.0-96.0); PLATELET COUNT, AUTOMATED 256 10^3/uL (150-450); RED BLOOD COUNT 4.51 10^6/uL (4.00-5.40); WHITE BLOOD COUNT 10.2 10^3/uL (4.0-10.0)
[2017-12-06 07:21] LABS: ANION GAP 7 MEQ/L (8-16); BLOOD UREA NITROGEN 25 MG/DL (7-18); CALCIUM LEVEL 9.3 MG/DL (8.8-10.2); CARBON DIOXIDE LEVEL 24 MEQ/L (21-32); CHLORIDE LEVEL 110 MEQ/L (98-107); CREATININE FOR GFR 1.07 MG/DL (0.55-1.30); GLOMERULAR FILTRATION RATE 52.1 (>32); GLUCOSE, FASTING 101 MG/DL (70-100); POTASSIUM SERUM 3.9 MEQ/L (3.5-5.1); SODIUM LEVEL 141 MEQ/L (136-145)
[2017-12-06] MEDS: VITAMIN D 1,000 INTERNATIONAL UNITS TABLET PO (10:05)
[2017-12-06] MEDS: HumaLOG INSULIN (NovoLOG) PER UNIT SC (10:05)
[2017-12-06] MEDS: DOCUSATE SODIUM 100 MG CAP PO (10:05)
[2017-12-06] MEDS: ASPIRIN 81 MG ENTERIC TAB PO (10:06)
[2017-12-06] MEDS: MULTIVITAMINS/MINERALS THERAP 1 TAB PO (10:06)
[2017-12-06] MEDS: CYANOCOBALAMIN 500 MCG TAB PO (10:06)
[2017-12-06] MEDS: CHLORTHALIDONE 12.5MG PER 1/2 TABLET PO (10:06)
[2017-12-06] MEDS: SITagliptin 50 MG TAB (JANUVIA) PO (10:07)
[2017-12-06] MEDS: OMEPRAZOLE 20 MG CAP PO (10:07)
[2017-12-06] MEDS: ALPRAZolam 0.25 MG TAB PO (10:07)
[2017-12-06] MEDS: NYSTATIN 100,000 UNITS/GM TOPICAL PWD 15 GM TOP (10:08)
[2017-12-06 11:45] LABS: BEDSIDE GLUCOSE 87 MG/DL (83-110)
[2017-12-06 11:45] LABS: BEDSIDE GLUCOSE 130 MG/DL (83-110)
[2017-12-06 11:45] LABS: BEDSIDE GLUCOSE 125 MG/DL (83-110)
[2017-12-06 11:45] LABS: BEDSIDE GLUCOSE 81 MG/DL (83-110)
== END 2017-12-06 11:35 | DRG 551 ==
LOC: M MS5PR 12-03 12:07 → M ED 06:19 → M ED INP 10:09 → M MS5PR 14:50
DX: M48.061 Spinal stenosis, lumbar region without neurogenic claudication (principal); G93.41 Metabolic encephalopathy; N39.0 Urinary tract infection, site not specified; M06.9 Rheumatoid arthritis, unspecified; E11.9 Type 2 diabetes mellitus without complications; H40.9 Unspecified glaucoma; M51.36 Other intervertebral disc degeneration, lumbar region; G47.33 Obstructive sleep apnea (adult) (pediatric); K21.9 Gastro-esophageal reflux disease without esophagitis; G31.84 Mild cognitive impairment of uncertain or unknown etiology; I10 Essential (primary) hypertension; E78.5 Hyperlipidemia, unspecified; G25.81 Restless legs syndrome; M85.871 Other specified disorders of bone density and structure, right ankle and foot; M10.9 Gout, unspecified; M25.571 Pain in right ankle and joints of right foot; Z87.891 Personal history of nicotine dependence; Z79.82 Long term (current) use of aspirin; Z79.891 Long term (current) use of opiate analgesic; Z79.899 Other long term (current) drug therapy; Z88.5 Allergy status to narcotic agent; Z88.2 Allergy status to sulfonamides; Z88.8 Allergy status to other drugs, medicaments and biological substances; Z88.1 Allergy status to other antibiotic agents

== ENCOUNTER → 2017-12-07 | Outpatient (REF) ==
[2017-12-07 13:54] LABS: HEMATOCRIT 38.7 % (36.0-47.0); HEMOGLOBIN 12.4 g/dl (12.0-15.5); MEAN CORPUSCULAR HEMOGLOBIN 26.3 pg (27.0-33.0); PLATELET COUNT, AUTOMATED 351 10^3/uL (150-450); RED BLOOD COUNT 4.72 10^6/uL (4.00-5.40); RED CELL DISTRIBUTION WIDTH 15.2 % (11.5-14.5); WHITE BLOOD COUNT 12.6 10^3/uL (4.0-10.0)
[2017-12-07 14:22] LABS: ANION GAP 7 MEQ/L (8-16); BLOOD UREA NITROGEN 29 MG/DL (7-18); CALCIUM LEVEL 9.1 MG/DL (8.8-10.2); CARBON DIOXIDE LEVEL 28 MEQ/L (21-32); CHLORIDE LEVEL 107 MEQ/L (98-107); CREATININE FOR GFR 1.39 MG/DL (0.55-1.30); GLOMERULAR FILTRATION RATE 38.5 (>32); GLUCOSE, FASTING 100 MG/DL (70-100); POTASSIUM SERUM 4.2 MEQ/L (3.5-5.1); SODIUM LEVEL 142 MEQ/L (136-145); URIC ACID 9.3 MG/DL (2.6-6.0)
== END ==
DX: M10.9 Gout, unspecified (principal); M25.571 Pain in right ankle and joints of right foot; W19.XXXA Unspecified fall, initial encounter

== ENCOUNTER → 2017-12-21 | Outpatient (REF) ==
[2017-12-21 11:11] LABS: HEMATOCRIT 42.8 % (36.0-47.0); HEMOGLOBIN 13.1 g/dl (12.0-15.5); MEAN CORPUSCULAR HEMOGLOBIN 26.3 pg (27.0-33.0); MEAN CORPUSCULAR HGB CONC 30.6 g/dl (32.0-36.5); MEAN CORPUSCULAR VOLUME 85.9 fl (80.0-96.0); PLATELET COUNT, AUTOMATED 228 10^3/uL (150-450); RED BLOOD COUNT 4.98 10^6/uL (4.00-5.40); RED CELL DISTRIBUTION WIDTH 15.7 % (11.5-14.5)
== END ==
DX: M10.9 Gout, unspecified (principal)

== ENCOUNTER → 2018-01-07 | Outpatient (REF) ==
[2018-01-07 10:09] LABS: HEMATOCRIT 38.6 % (36.0-47.0); HEMOGLOBIN 12.3 g/dl (12.0-15.5); MEAN CORPUSCULAR HEMOGLOBIN 26.5 pg (27.0-33.0); MEAN CORPUSCULAR HGB CONC 31.9 g/dl (32.0-36.5); MEAN CORPUSCULAR VOLUME 83.2 fl (80.0-96.0); PLATELET COUNT, AUTOMATED 271 10^3/uL (150-450); RED BLOOD COUNT 4.64 10^6/uL (4.00-5.40); RED CELL DISTRIBUTION WIDTH 15.2 % (11.5-14.5); WHITE BLOOD COUNT 8.1 10^3/uL (4.0-10.0)
[2018-01-07 10:33] LABS: ANION GAP 8 MEQ/L (8-16); BLOOD UREA NITROGEN 26 MG/DL (7-18); CALCIUM LEVEL 8.8 MG/DL (8.8-10.2); CARBON DIOXIDE LEVEL 28 MEQ/L (21-32); CHLORIDE LEVEL 107 MEQ/L (98-107); CREATININE FOR GFR 1.17 MG/DL (0.55-1.30); GLUCOSE, FASTING 166 MG/DL (70-100); SODIUM LEVEL 143 MEQ/L (136-145)
== END ==
DX: I10 Essential (primary) hypertension (principal)

== ENCOUNTER 2018-07-09 11:05 | Inpatient (IN) | payer MEDICARE, OTHER ==
[2018-07-09 11:55] LABS: BASO # 0.1 10^3/uL (0.0-0.2); BASO % 0.5 % (0.0-1.0); EOS # 0.4 10^3/uL (0.0-0.50); EOS % 4.2 % (0.0-3.0); HEMATOCRIT 36.9 % (36.0-47.0); HEMOGLOBIN 11.7 g/dl (12.0-15.5); IMMATURE GRANULOCYTE % 0.3 % (0-3.0); LYMPH # 1.7 10^3/uL (1.5-4.5); LYMPH % 17.3 % (24.0-44.0); MEAN CORPUSCULAR HEMOGLOBIN 26.4 pg (27.0-33.0); MEAN CORPUSCULAR HGB CONC 31.7 g/dl (32.0-36.5); MEAN CORPUSCULAR VOLUME 83.3 fl (80.0-96.0); MONO # 0.7 10^3/uL (0.0-0.8); MONO % 7.1 % (0.0-5.0); NEUTROPHILS # 6.9 10^3/uL (1.8-7.7); NEUTROPHILS % 70.6 % (36.0-66.0); PLATELET COUNT, AUTOMATED 184 10^3/uL (150-450); RED BLOOD COUNT 4.43 10^6/uL (4.00-5.40); RED CELL DISTRIBUTION WIDTH 15.9 % (11.5-14.5); WHITE BLOOD COUNT 9.8 10^3/uL (4.0-10.0)
[2018-07-09 12:37] LABS: ALBUMIN 3.4 GM/DL (3.2-5.2); ALBUMIN/GLOBULIN RATIO 1.13 (1.00-1.93); ALKALINE PHOSPHATASE 62 U/L (45-117); ALT/SGPT 19 U/L (12-78); ANION GAP 8 MEQ/L (8-16); AST/SGOT 21 U/L (7-37); BILIRUBIN,DIRECT 0.1 MG/DL (0.0-0.2); BILIRUBIN,TOTAL 0.4 MG/DL (0.2-1.0); BLOOD UREA NITROGEN 27 MG/DL (7-18); CALCIUM LEVEL 8.9 MG/DL (8.8-10.2); CARBON DIOXIDE LEVEL 28 MEQ/L (21-32); CHLORIDE LEVEL 109 MEQ/L (98-107); CPK CREATINE PHOSPHOKINASE 100 U/L (26-192); CREATININE FOR GFR 1.23 MG/DL (0.55-1.30); FREE T4 1.08 NG/DL (0.76-1.46); GLOMERULAR FILTRATION RATE 44.3 (>32); GLUCOSE, FASTING 87 MG/DL (70-100); LIPASE 126 U/L (73-393); NT-PRO BNP 1119 PG/ML (<450); POTASSIUM SERUM 4.1 MEQ/L (3.5-5.1); SODIUM LEVEL 145 MEQ/L (136-145); THYROID STIMULATING HORMONE 0.643 uIU/ML (0.358-3.740); TOTAL PROTEIN 6.4 GM/DL (6.4-8.2); TROPONIN I 0.04 NG/ML (< 0.10)
[2018-07-09] MEDS: FUROSEMIDE 20 MG/2 ML VIAL (J1940) IV (13:31)
[2018-07-09 14:48] LABS: CPK CREATINE PHOSPHOKINASE 105 U/L (26-192); MB/CK RELATIVE INDEX 3.05 (< OR =4); TROPONIN I 0.05 NG/ML (< 0.10)
[2018-07-09] MEDS ORDERED: ALBUTEROL 90 MCG/ACT 8GM HFA INHALER INH (16:00)
[2018-07-09] MEDS ORDERED: SLF 3 ML SYR IV (17:15)
[2018-07-09 18:24] LABS: CPK CREATINE PHOSPHOKINASE 94 U/L (26-192); MB/CK RELATIVE INDEX 3.09 (< OR =4); TROPONIN I 0.05 NG/ML (< 0.10)
[2018-07-09] MEDS: DOCUSATE SODIUM 100 MG CAP PO (20:13)
[2018-07-09] MEDS: ATORVASTATIN 20 MG TAB PO (20:13)
[2018-07-09] MEDS: FUROSEMIDE 40 MG/4 ML VIAL (J1940) IV (20:13)
[2018-07-09] MEDS: CALCIUM CARBONATE 500 MG CHEW U/D PO (20:13)
[2018-07-09] MEDS: LATANOPROST 0.005% OPHTH SOLN 2.5 ML OU (20:58)
[2018-07-09] MEDS: SLF 3 ML SYR IV (20:58)
[2018-07-10] MEDS: SLF 3 ML SYR IV ×3 (04:13→20:38)
[2018-07-10] MEDS: FUROSEMIDE 40 MG/4 ML VIAL (J1940) IV ×2 (09:21→20:38)
[2018-07-10] MEDS: DOCUSATE SODIUM 100 MG CAP PO ×2 (09:21→20:38)
[2018-07-10] MEDS: CYANOCOBALAMIN 500 MCG TAB PO (09:21)
[2018-07-10] MEDS: VITAMIN D 1,000 INTERNATIONAL UNITS TABLET PO (09:22)
[2018-07-10] MEDS: PERCOCET 5MG/325MG TAB PO (09:22)
[2018-07-10] MEDS: ASPIRIN 81 MG ENTERIC TAB PO (09:23)
[2018-07-10] MEDS: SITagliptin 50 MG TAB (JANUVIA) PO (09:23)
[2018-07-10] MEDS: MULTIVITAMINS/MINERALS THERAP 1 TAB PO (09:23)
[2018-07-10] MEDS: ENOXAPARIN 40 MG/0.4 ML SYRINGE (J1650) SC (16:53)
[2018-07-10] MEDS: CALCIUM CARBONATE 500 MG CHEW U/D PO (20:37)
[2018-07-10] MEDS: ATORVASTATIN 20 MG TAB PO (20:38)
[2018-07-10] MEDS: LATANOPROST 0.005% OPHTH SOLN 2.5 ML OU (20:38)
[2018-07-11] MEDS: ACETAMINOPHEN TAB 650MG DOSE (2X325MG) PO (00:49)
[2018-07-11] MEDS: SLF 3 ML SYR IV ×3 (06:00→22:00)
[2018-07-11 08:41] LABS: HEMATOCRIT 45.3 % (36.0-47.0); MEAN CORPUSCULAR HEMOGLOBIN 26.5 pg (27.0-33.0); MEAN CORPUSCULAR HGB CONC 31.8 g/dl (32.0-36.5); MEAN CORPUSCULAR VOLUME 83.4 fl (80.0-96.0); PLATELET COUNT, AUTOMATED 260 10^3/uL (150-450); RED BLOOD COUNT 5.43 10^6/uL (4.00-5.40); RED CELL DISTRIBUTION WIDTH 14.9 % (11.5-14.5)
[2018-07-11 08:53] LABS: HEMOGLOBIN 14.4 g/dl (12.0-15.5)
[2018-07-11 08:56] LABS: ANION GAP 11 MEQ/L (8-16); BLOOD UREA NITROGEN 41 MG/DL (7-18); CALCIUM LEVEL 10.5 MG/DL (8.8-10.2); CARBON DIOXIDE LEVEL 26 MEQ/L (21-32); CHLORIDE LEVEL 102 MEQ/L (98-107); CREATININE FOR GFR 1.71 MG/DL (0.55-1.30); GLOMERULAR FILTRATION RATE 30.3 (>32); GLUCOSE, FASTING 132 MG/DL (70-100); POTASSIUM SERUM 3.8 MEQ/L (3.5-5.1); SODIUM LEVEL 139 MEQ/L (136-145)
[2018-07-11] MEDS: DOCUSATE SODIUM 100 MG CAP PO ×2 (09:00→19:55)
[2018-07-11] MEDS: CYANOCOBALAMIN 500 MCG TAB PO (10:23)
[2018-07-11] MEDS: VITAMIN D 1,000 INTERNATIONAL UNITS TABLET PO (10:25)
[2018-07-11] MEDS: FUROSEMIDE 40 MG TAB PO (10:25)
[2018-07-11] MEDS: ASPIRIN 81 MG ENTERIC TAB PO (10:25)
[2018-07-11] MEDS: SITagliptin 50 MG TAB (JANUVIA) PO (10:26)
[2018-07-11] MEDS: MULTIVITAMINS/MINERALS THERAP 1 TAB PO (10:30)
[2018-07-11] MEDS ORDERED: PILL CRUSHER/CUTTER 1 EACH XX (10:45)
[2018-07-11] MEDS: ALPRAZolam 0.25 MG TAB PO (10:46)
[2018-07-11] MEDS: ENOXAPARIN 40 MG/0.4 ML SYRINGE (J1650) SC (10:48)
[2018-07-11 19:35] LABS: APPEARANCE, URINE MANUAL HAZY (CLEAR); COLOR, URINE MANUAL YELLOW (YELLOW)
[2018-07-11 19:36] LABS: BILIRUBIN, URINE MANUAL NEGATIVE (NEGATIVE); BLOOD URINE MANUAL NEGATIVE (NEGATIVE); GLUCOSE, URINE (UA) MANUAL NEGATIVE (NEGATIVE); KETONE, URINE MANUAL NEGATIVE (NEGATIVE); LEUKOCYTE ESTERASE, URINE MAN POSITIVE (NEGATIVE); MICROSCOPIC INDICATED? MAN YES (NO); NITRITE, URINE MANUAL NEGATIVE (NEGATIVE); PROTEIN, URINE MANUAL NEGATIVE (NEGATIVE); UROBILINOGEN, URINE MANUAL NORMAL (NORMAL)
[2018-07-11 19:38] LABS: BACTERIA, URINE SMALL AMOUNT; HYALINE CAST, URINE 0-1 /lpf (0-1); RBC, URINE NONE SEEN /hpf (0-3); SQUAMOUS EPITHELIAL CELL URINE MOD AMOUNT /hpf (SMALL AMT)
[2018-07-11 19:39] LABS: MICROSCOPIC EXAM UNSPUN
[2018-07-11] MEDS: ATORVASTATIN 20 MG TAB PO (19:54)
[2018-07-11] MEDS: CALCIUM CARBONATE 500 MG CHEW U/D PO (19:54)
[2018-07-11] MEDS: LATANOPROST 0.005% OPHTH SOLN 2.5 ML OU (19:55)
[2018-07-12] MEDS: PERCOCET 5MG/325MG TAB PO ×2 (00:33→22:00)
[2018-07-12] MEDS: SLF 3 ML SYR IV ×3 (06:00→21:51)
[2018-07-12 06:06] LABS: HEMATOCRIT 41.3 % (36.0-47.0); HEMOGLOBIN 13.3 g/dl (12.0-15.5); MEAN CORPUSCULAR HEMOGLOBIN 26.4 pg (27.0-33.0); MEAN CORPUSCULAR HGB CONC 32.2 g/dl (32.0-36.5); MEAN CORPUSCULAR VOLUME 81.9 fl (80.0-96.0); PLATELET COUNT, AUTOMATED 231 10^3/uL (150-450); RED BLOOD COUNT 5.04 10^6/uL (4.00-5.40); RED CELL DISTRIBUTION WIDTH 14.7 % (11.5-14.5); WHITE BLOOD COUNT 11.5 10^3/uL (4.0-10.0)
[2018-07-12 06:15] LABS: ANION GAP 10 MEQ/L (8-16); BLOOD UREA NITROGEN 51 MG/DL (7-18); CALCIUM LEVEL 9.6 MG/DL (8.8-10.2); CARBON DIOXIDE LEVEL 27 MEQ/L (21-32); CHLORIDE LEVEL 102 MEQ/L (98-107); CREATININE FOR GFR 1.59 MG/DL (0.55-1.30); GLOMERULAR FILTRATION RATE 32.9 (>32); GLUCOSE, FASTING 126 MG/DL (70-100); POTASSIUM SERUM 3.8 MEQ/L (3.5-5.1); SODIUM LEVEL 139 MEQ/L (136-145)
[2018-07-12] MEDS: ENOXAPARIN 40 MG/0.4 ML SYRINGE (J1650) SC (08:26)
[2018-07-12] MEDS: CYANOCOBALAMIN 500 MCG TAB PO (08:27)
[2018-07-12] MEDS: DOCUSATE SODIUM 100 MG CAP PO ×2 (08:27→21:49)
[2018-07-12] MEDS: ASPIRIN 81 MG ENTERIC TAB PO (08:27)
[2018-07-12] MEDS: SITagliptin 50 MG TAB (JANUVIA) PO (08:27)
[2018-07-12] MEDS: MULTIVITAMINS/MINERALS THERAP 1 TAB PO (08:27)
[2018-07-12] MEDS: VITAMIN D 1,000 INTERNATIONAL UNITS TABLET PO (08:27)
[2018-07-12] MEDS: NYSTATIN 100,000 UNITS/GM TOPICAL PWD 15 GM TOP ×2 (10:24→21:51)
[2018-07-12] MEDS: ACETAMINOPHEN TAB 650MG DOSE (2X325MG) PO (12:46)
[2018-07-12] MEDS ORDERED: GLUCAGON FOR INJ 1 MG VIAL (J1610) SC (15:15)
[2018-07-12] MEDS ORDERED: DEXTROSE 50% 50 ML SYRINGE IV (15:15)
[2018-07-12] MEDS ORDERED: GLUCOSE 4 GM CHEW TABLET PO (15:15)
[2018-07-12 16:47] LABS: BEDSIDE GLUCOSE 100 MG/DL (83-110)
[2018-07-12] MEDS: HumaLOG INSULIN (NovoLOG) PER UNIT SC ×2 (16:47→21:00)
[2018-07-12 19:55] LABS: BEDSIDE GLUCOSE 139 MG/DL (83-110)
[2018-07-12] MEDS: CALCIUM CARBONATE 500 MG CHEW U/D PO (21:49)
[2018-07-12] MEDS: ATORVASTATIN 20 MG TAB PO (21:49)
[2018-07-12] MEDS: LATANOPROST 0.005% OPHTH SOLN 2.5 ML OU (21:53)
[2018-07-13 06:00] LABS: HEMATOCRIT 39.3 % (36.0-47.0); HEMOGLOBIN 12.5 g/dl (12.0-15.5); MEAN CORPUSCULAR HEMOGLOBIN 26.3 pg (27.0-33.0); MEAN CORPUSCULAR HGB CONC 31.8 g/dl (32.0-36.5); MEAN CORPUSCULAR VOLUME 82.7 fl (80.0-96.0); PLATELET COUNT, AUTOMATED 205 10^3/uL (150-450); RED BLOOD COUNT 4.75 10^6/uL (4.00-5.40); RED CELL DISTRIBUTION WIDTH 14.6 % (11.5-14.5); WHITE BLOOD COUNT 7.8 10^3/uL (4.0-10.0)
[2018-07-13] MEDS: SLF 3 ML SYR IV ×3 (06:00→21:06)
[2018-07-13 06:20] LABS: ANION GAP 9 MEQ/L (8-16); BLOOD UREA NITROGEN 56 MG/DL (7-18); CALCIUM LEVEL 9.5 MG/DL (8.8-10.2); CARBON DIOXIDE LEVEL 28 MEQ/L (21-32); CHLORIDE LEVEL 103 MEQ/L (98-107); CREATININE FOR GFR 1.55 MG/DL (0.55-1.30); GLOMERULAR FILTRATION RATE 33.9 (>32); GLUCOSE, FASTING 118 MG/DL (70-100); POTASSIUM SERUM 3.7 MEQ/L (3.5-5.1); SODIUM LEVEL 140 MEQ/L (136-145)
[2018-07-13] MEDS: DOCUSATE SODIUM 100 MG CAP PO ×2 (08:55→21:06)
[2018-07-13] MEDS: ASPIRIN 81 MG ENTERIC TAB PO (08:55)
[2018-07-13] MEDS: VITAMIN D 1,000 INTERNATIONAL UNITS TABLET PO (08:55)
[2018-07-13] MEDS: MULTIVITAMINS/MINERALS THERAP 1 TAB PO (08:55)
[2018-07-13] MEDS: CYANOCOBALAMIN 500 MCG TAB PO (08:55)
[2018-07-13] MEDS: ENOXAPARIN 40 MG/0.4 ML SYRINGE (J1650) SC (08:55)
[2018-07-13] MEDS: HumaLOG INSULIN (NovoLOG) PER UNIT SC ×4 (08:56→20:19)
[2018-07-13] MEDS: NYSTATIN 100,000 UNITS/GM TOPICAL PWD 15 GM TOP ×2 (08:57→21:06)
[2018-07-13 11:40] LABS: BEDSIDE GLUCOSE 117 MG/DL (83-110)
[2018-07-13 16:31] LABS: BEDSIDE GLUCOSE 121 MG/DL (83-110)
[2018-07-13 20:08] LABS: BEDSIDE GLUCOSE 118 MG/DL (83-110)
[2018-07-13] MEDS: CALCIUM CARBONATE 500 MG CHEW U/D PO (21:05)
[2018-07-13] MEDS: LATANOPROST 0.005% OPHTH SOLN 2.5 ML OU (21:06)
[2018-07-13] MEDS: ATORVASTATIN 20 MG TAB PO (21:06)
[2018-07-14] MEDS: SLF 3 ML SYR IV ×3 (05:25→21:44)
[2018-07-14 05:36] LABS: HEMATOCRIT 40.7 % (36.0-47.0); HEMOGLOBIN 12.9 g/dl (12.0-15.5); MEAN CORPUSCULAR HEMOGLOBIN 26.5 pg (27.0-33.0); MEAN CORPUSCULAR HGB CONC 31.7 g/dl (32.0-36.5); MEAN CORPUSCULAR VOLUME 83.6 fl (80.0-96.0); PLATELET COUNT, AUTOMATED 227 10^3/uL (150-450); RED BLOOD COUNT 4.87 10^6/uL (4.00-5.40); RED CELL DISTRIBUTION WIDTH 14.6 % (11.5-14.5); WHITE BLOOD COUNT 8.7 10^3/uL (4.0-10.0)
[2018-07-14 05:55] LABS: ANION GAP 6 MEQ/L (8-16); BLOOD UREA NITROGEN 41 MG/DL (7-18); CALCIUM LEVEL 9.7 MG/DL (8.8-10.2); CARBON DIOXIDE LEVEL 28 MEQ/L (21-32); CHLORIDE LEVEL 106 MEQ/L (98-107); CREATININE FOR GFR 1.31 MG/DL (0.55-1.30); GLOMERULAR FILTRATION RATE 41.2 (>32); GLUCOSE, FASTING 126 MG/DL (70-100); POTASSIUM SERUM 4.1 MEQ/L (3.5-5.1); SODIUM LEVEL 140 MEQ/L (136-145)
[2018-07-14] MEDS: VITAMIN D 1,000 INTERNATIONAL UNITS TABLET PO (09:14)
[2018-07-14] MEDS: DOCUSATE SODIUM 100 MG CAP PO ×2 (09:14→21:44)
[2018-07-14] MEDS: CYANOCOBALAMIN 500 MCG TAB PO (09:14)
[2018-07-14] MEDS: HumaLOG INSULIN (NovoLOG) PER UNIT SC ×4 (09:14→21:00)
[2018-07-14] MEDS: MULTIVITAMINS/MINERALS THERAP 1 TAB PO (09:14)
[2018-07-14] MEDS: ASPIRIN 81 MG ENTERIC TAB PO (09:14)
[2018-07-14] MEDS: OMEPRAZOLE 20 MG CAP PO ×2 (09:14→21:46)
[2018-07-14] MEDS: ENOXAPARIN 40 MG/0.4 ML SYRINGE (J1650) SC (09:15)
[2018-07-14] MEDS: NYSTATIN 100,000 UNITS/GM TOPICAL PWD 15 GM TOP ×2 (09:15→21:43)
[2018-07-14 12:00] LABS: BEDSIDE GLUCOSE 104 MG/DL (83-110)
[2018-07-14] MEDS: cefTRIAXone SOD 1 GM in D5W MINI-BAG PLUS 50 ML IV ×2 (12:50→16:01)
[2018-07-14 16:04] LABS: APPEARANCE, URINE CLEAR (CLEAR); BACTERIA, URINE AUTO NEGATIVE (NEGATIVE); BILIRUBIN, URINE AUTO NEGATIVE (NEGATIVE); BLOOD, URINE BLOOD NEGATIVE (NEGATIVE); COLOR, URINE YELLOW (YELLOW); GLUCOSE, URINE (UA) AUTO NEGATIVE (NEGATIVE); KETONE, URINE AUTO NEGATIVE (NEGATIVE); LEUKOCYTE ESTERASE, URINE AUTO 1+ (NEGATIVE); MUCUS, URINE SMALL (NEGATIVE); NITRITE, URINE AUTO NEGATIVE (NEGATIVE); PROTEIN, URINE AUTO NEGATIVE (NEGATIVE); RBC, URINE AUTO 2 /HPF (0-3); SPECIFIC GRAVITY URINE AUTO 1.019 (1.002-1.035); SQUAMOUS EPITHELIAL CELL UR AU 2 /HPF (0-6); UROBILINOGEN, URINE AUTO 0.2 mg/dL (0.0-2.0); WBC, URINE AUTO 8 /HPF (0-3)
[2018-07-14 16:48] LABS: BEDSIDE GLUCOSE 121 MG/DL (83-110)
[2018-07-14 21:35] LABS: BEDSIDE GLUCOSE 111 MG/DL (83-110)
[2018-07-14] MEDS: LATANOPROST 0.005% OPHTH SOLN 2.5 ML OU (21:43)
[2018-07-14] MEDS: CALCIUM CARBONATE 500 MG CHEW U/D PO (21:43)
[2018-07-14] MEDS: ATORVASTATIN 20 MG TAB PO (21:44)
[2018-07-15] MEDS: ACETAMINOPHEN TAB 650MG DOSE (2X325MG) PO (05:32)
[2018-07-15] MEDS: SLF 3 ML SYR IV ×3 (05:32→20:44)
[2018-07-15] MEDS: HumaLOG INSULIN (NovoLOG) PER UNIT SC ×4 (08:25→20:49)
[2018-07-15] MEDS: ASPIRIN 81 MG ENTERIC TAB PO (08:26)
[2018-07-15] MEDS: NYSTATIN 100,000 UNITS/GM TOPICAL PWD 15 GM TOP ×2 (08:26→20:44)
[2018-07-15] MEDS: MULTIVITAMINS/MINERALS THERAP 1 TAB PO (08:26)
[2018-07-15] MEDS: CYANOCOBALAMIN 500 MCG TAB PO (08:26)
[2018-07-15] MEDS: OMEPRAZOLE 20 MG CAP PO ×2 (08:26→20:44)
[2018-07-15] MEDS: ENOXAPARIN 40 MG/0.4 ML SYRINGE (J1650) SC (08:26)
[2018-07-15] MEDS: DOCUSATE SODIUM 100 MG CAP PO ×2 (08:26→20:44)
[2018-07-15] MEDS: VITAMIN D 1,000 INTERNATIONAL UNITS TABLET PO (08:26)
[2018-07-15 11:15] LABS: HEMATOCRIT 39.8 % (36.0-47.0); HEMOGLOBIN 12.6 g/dl (12.0-15.5); MEAN CORPUSCULAR HEMOGLOBIN 26.8 pg (27.0-33.0); MEAN CORPUSCULAR HGB CONC 31.7 g/dl (32.0-36.5); MEAN CORPUSCULAR VOLUME 84.5 fl (80.0-96.0); PLATELET COUNT, AUTOMATED 218 10^3/uL (150-450); RED BLOOD COUNT 4.71 10^6/uL (4.00-5.40); RED CELL DISTRIBUTION WIDTH 14.8 % (11.5-14.5); WHITE BLOOD COUNT 9.8 10^3/uL (4.0-10.0)
[2018-07-15 11:26] LABS: ANION GAP 7 MEQ/L (8-16); BLOOD UREA NITROGEN 38 MG/DL (7-18); CALCIUM LEVEL 9.5 MG/DL (8.8-10.2); CARBON DIOXIDE LEVEL 28 MEQ/L (21-32); CHLORIDE LEVEL 105 MEQ/L (98-107); GLOMERULAR FILTRATION RATE 41.5 (>32); GLUCOSE, FASTING 133 MG/DL (70-100); POTASSIUM SERUM 4.1 MEQ/L (3.5-5.1); SODIUM LEVEL 140 MEQ/L (136-145)
[2018-07-15] MEDS: cefTRIAXone SOD 1 GM in D5W MINI-BAG PLUS 50 ML IV (14:51)
[2018-07-15 16:45] LABS: C REACTIVE PROTEIN QUANTITATIV < 0.30 MG/DL (0.00-0.30)
[2018-07-15] MEDS: LATANOPROST 0.005% OPHTH SOLN 2.5 ML OU (20:44)
[2018-07-15] MEDS: CALCIUM CARBONATE 500 MG CHEW U/D PO (20:45)
[2018-07-15] MEDS: ATORVASTATIN 20 MG TAB PO (20:45)
[2018-07-16] MEDS: PERCOCET 5MG/325MG TAB PO ×2 (01:34→21:26)
[2018-07-16 02:26] LABS: BEDSIDE GLUCOSE 109 MG/DL (83-110)
[2018-07-16 02:26] LABS: BEDSIDE GLUCOSE 162 MG/DL (83-110)
[2018-07-16 02:26] LABS: BEDSIDE GLUCOSE 146 MG/DL (83-110)
[2018-07-16] MEDS: SLF 3 ML SYR IV ×3 (05:23→22:00)
[2018-07-16] MEDS: ACETAMINOPHEN TAB 650MG DOSE (2X325MG) PO ×2 (06:27→17:39)
[2018-07-16 07:05] LABS: BASO # 0.1 10^3/uL (0.0-0.2); BASO % 0.6 % (0.0-1.0); EOS # 0.4 10^3/uL (0.0-0.50); EOS % 4.5 % (0.0-3.0); HEMATOCRIT 38.6 % (36.0-47.0); HEMOGLOBIN 12.1 g/dl (12.0-15.5); IMMATURE GRANULOCYTE % 0.2 % (0-3.0); LYMPH # 1.7 10^3/uL (1.5-4.5); LYMPH % 20.5 % (24.0-44.0); MEAN CORPUSCULAR HEMOGLOBIN 26.4 pg (27.0-33.0); MEAN CORPUSCULAR HGB CONC 31.3 g/dl (32.0-36.5); MEAN CORPUSCULAR VOLUME 84.3 fl (80.0-96.0); MONO # 0.7 10^3/uL (0.0-0.8); MONO % 8.1 % (0.0-5.0); NEUTROPHILS # 5.4 10^3/uL (1.8-7.7); NEUTROPHILS % 66.1 % (36.0-66.0); PLATELET COUNT, AUTOMATED 200 10^3/uL (150-450); RED BLOOD COUNT 4.58 10^6/uL (4.00-5.40); RED CELL DISTRIBUTION WIDTH 14.9 % (11.5-14.5); WHITE BLOOD COUNT 8.2 10^3/uL (4.0-10.0)
[2018-07-16 07:34] LABS: ALBUMIN 3.2 GM/DL (3.2-5.2); ALBUMIN/GLOBULIN RATIO 0.89 (1.00-1.93); ALKALINE PHOSPHATASE 61 U/L (45-117); ALT/SGPT 22 U/L (12-78); ANION GAP 8 MEQ/L (8-16); AST/SGOT 27 U/L (7-37); BILIRUBIN,TOTAL 0.3 MG/DL (0.2-1.0); BLOOD UREA NITROGEN 37 MG/DL (7-18); C REACTIVE PROTEIN QUANTITATIV 0.38 MG/DL (0.00-0.30); CALCIUM LEVEL 9.1 MG/DL (8.8-10.2); CARBON DIOXIDE LEVEL 26 MEQ/L (21-32); CHLORIDE LEVEL 107 MEQ/L (98-107); CREATININE FOR GFR 1.14 MG/DL (0.55-1.30); GLOMERULAR FILTRATION RATE 48.3 (>32); GLUCOSE, FASTING 114 MG/DL (70-100); MAGNESIUM LEVEL 1.9 MG/DL (1.8-2.4); POTASSIUM SERUM 3.8 MEQ/L (3.5-5.1); SODIUM LEVEL 141 MEQ/L (136-145); TOTAL PROTEIN 6.8 GM/DL (6.4-8.2)
[2018-07-16] MEDS: HumaLOG INSULIN (NovoLOG) PER UNIT SC ×4 (08:25→21:00)
[2018-07-16] MEDS: CYANOCOBALAMIN 500 MCG TAB PO (08:26)
[2018-07-16] MEDS: OMEPRAZOLE 20 MG CAP PO ×2 (08:26→21:25)
[2018-07-16] MEDS: VITAMIN D 1,000 INTERNATIONAL UNITS TABLET PO (08:26)
[2018-07-16] MEDS: MULTIVITAMINS/MINERALS THERAP 1 TAB PO (08:26)
[2018-07-16] MEDS: ENOXAPARIN 40 MG/0.4 ML SYRINGE (J1650) SC (08:26)
[2018-07-16] MEDS: NYSTATIN 100,000 UNITS/GM TOPICAL PWD 15 GM TOP ×2 (08:26→21:27)
[2018-07-16] MEDS: ASPIRIN 81 MG ENTERIC TAB PO (08:26)
[2018-07-16] MEDS: DOCUSATE SODIUM 100 MG CAP PO ×2 (08:26→21:25)
[2018-07-16 11:28] LABS: BEDSIDE GLUCOSE 79 MG/DL (83-110)
[2018-07-16 17:18] LABS: BEDSIDE GLUCOSE 130 MG/DL (83-110)
[2018-07-16] MEDS: cefTRIAXone SOD 1 GM in D5W MINI-BAG PLUS 50 ML IV (17:35)
[2018-07-16] MEDS: ALPRAZolam 0.25 MG TAB PO (17:36)
[2018-07-16 19:46] LABS: BEDSIDE GLUCOSE 150 MG/DL (83-110)
[2018-07-16] MEDS: ATORVASTATIN 20 MG TAB PO (21:25)
[2018-07-16] MEDS: CALCIUM CARBONATE 500 MG CHEW U/D PO (21:26)
[2018-07-16] MEDS: LATANOPROST 0.005% OPHTH SOLN 2.5 ML OU (21:27)
[2018-07-17] MEDS: SLF 3 ML SYR IV ×3 (06:00→22:16)
[2018-07-17] MEDS: HumaLOG INSULIN (NovoLOG) PER UNIT SC ×4 (07:30→21:00)
[2018-07-17 08:26] LABS: BEDSIDE GLUCOSE 87 MG/DL (83-110)
[2018-07-17 10:39] LABS: BASO # 0.1 10^3/uL (0.0-0.2); BASO % 0.8 % (0.0-1.0); EOS # 0.9 10^3/uL (0.0-0.50); HEMOGLOBIN 12.3 g/dl (12.0-15.5); IMMATURE GRANULOCYTE % 0.2 % (0-3.0); LYMPH # 1.6 10^3/uL (1.5-4.5); LYMPH % 18.5 % (24.0-44.0); MEAN CORPUSCULAR HEMOGLOBIN 26.3 pg (27.0-33.0); MEAN CORPUSCULAR HGB CONC 31.5 g/dl (32.0-36.5); MEAN CORPUSCULAR VOLUME 83.3 fl (80.0-96.0); MONO # 0.6 10^3/uL (0.0-0.8); MONO % 6.4 % (0.0-5.0); NEUTROPHILS # 5.6 10^3/uL (1.8-7.7); NEUTROPHILS % 64.1 % (36.0-66.0); PLATELET COUNT, AUTOMATED 215 10^3/uL (150-450); RED BLOOD COUNT 4.68 10^6/uL (4.00-5.40); RED CELL DISTRIBUTION WIDTH 14.9 % (11.5-14.5); WHITE BLOOD COUNT 8.8 10^3/uL (4.0-10.0)
[2018-07-17] MEDS: DOCUSATE SODIUM 100 MG CAP PO ×2 (10:44→22:17)
[2018-07-17] MEDS: MULTIVITAMINS/MINERALS THERAP 1 TAB PO (10:44)
[2018-07-17] MEDS: ASPIRIN 81 MG ENTERIC TAB PO (10:44)
[2018-07-17] MEDS: ENOXAPARIN 40 MG/0.4 ML SYRINGE (J1650) SC (10:44)
[2018-07-17] MEDS: NYSTATIN 100,000 UNITS/GM TOPICAL PWD 15 GM TOP ×2 (10:45→22:19)
[2018-07-17] MEDS: ACETAMINOPHEN TAB 650MG DOSE (2X325MG) PO (10:45)
[2018-07-17] MEDS: CYANOCOBALAMIN 500 MCG TAB PO (10:45)
[2018-07-17] MEDS: OMEPRAZOLE 20 MG CAP PO ×2 (10:45→22:17)
[2018-07-17] MEDS: VITAMIN D 1,000 INTERNATIONAL UNITS TABLET PO (10:45)
[2018-07-17 11:03] LABS: C REACTIVE PROTEIN QUANTITATIV < 0.30 MG/DL (0.00-0.30)
[2018-07-17 11:10] LABS: ALBUMIN 3.3 GM/DL (3.2-5.2); ALBUMIN/GLOBULIN RATIO 0.94 (1.00-1.93); ALKALINE PHOSPHATASE 63 U/L (45-117); ALT/SGPT 25 U/L (12-78); ANION GAP 6 MEQ/L (8-16); AST/SGOT 30 U/L (7-37); BILIRUBIN,TOTAL 0.4 MG/DL (0.2-1.0); BLOOD UREA NITROGEN 36 MG/DL (7-18); CALCIUM LEVEL 9.4 MG/DL (8.8-10.2); CARBON DIOXIDE LEVEL 26 MEQ/L (21-32); CHLORIDE LEVEL 109 MEQ/L (98-107); CREATININE FOR GFR 1.22 MG/DL (0.55-1.30); GLOMERULAR FILTRATION RATE 44.7 (>32); GLUCOSE, FASTING 144 MG/DL (70-100); MAGNESIUM LEVEL 1.8 MG/DL (1.8-2.4); POTASSIUM SERUM 4.3 MEQ/L (3.5-5.1); SODIUM LEVEL 141 MEQ/L (136-145); TOTAL PROTEIN 6.8 GM/DL (6.4-8.2)
[2018-07-17 11:24] LABS: BEDSIDE GLUCOSE 177 MG/DL (83-110)
[2018-07-17 16:16] LABS: BEDSIDE GLUCOSE 84 MG/DL (83-110)
[2018-07-17 20:06] LABS: BEDSIDE GLUCOSE 135 MG/DL (83-110)
[2018-07-17] MEDS: CALCIUM CARBONATE 500 MG CHEW U/D PO (22:16)
[2018-07-17] MEDS: ATORVASTATIN 20 MG TAB PO (22:17)
[2018-07-17] MEDS: LATANOPROST 0.005% OPHTH SOLN 2.5 ML OU (22:18)
[2018-07-17] MEDS: PERCOCET 5MG/325MG TAB PO (22:18)
[2018-07-18] MEDS: SLF 3 ML SYR IV ×3 (05:35→21:37)
[2018-07-18 06:25] LABS: BASO # 0.1 10^3/uL (0.0-0.2); BASO % 0.6 % (0.0-1.0); EOS % 12.9 % (0.0-3.0); HEMATOCRIT 37.5 % (36.0-47.0); HEMOGLOBIN 11.7 g/dl (12.0-15.5); IMMATURE GRANULOCYTE % 0.4 % (0-3.0); LYMPH # 1.2 10^3/uL (1.5-4.5); LYMPH % 15.9 % (24.0-44.0); MEAN CORPUSCULAR HEMOGLOBIN 26.6 pg (27.0-33.0); MEAN CORPUSCULAR HGB CONC 31.2 g/dl (32.0-36.5); MEAN CORPUSCULAR VOLUME 85.2 fl (80.0-96.0); MONO # 0.6 10^3/uL (0.0-0.8); MONO % 7.9 % (0.0-5.0); NEUTROPHILS # 4.9 10^3/uL (1.8-7.7); NEUTROPHILS % 62.3 % (36.0-66.0); PLATELET COUNT, AUTOMATED 203 10^3/uL (150-450); RED CELL DISTRIBUTION WIDTH 14.9 % (11.5-14.5); WHITE BLOOD COUNT 7.8 10^3/uL (4.0-10.0)
[2018-07-18 06:47] LABS: ALBUMIN/GLOBULIN RATIO 0.88 (1.00-1.93); ALKALINE PHOSPHATASE 60 U/L (45-117); ALT/SGPT 24 U/L (12-78); ANION GAP 6 MEQ/L (8-16); AST/SGOT 29 U/L (7-37); BILIRUBIN,TOTAL 0.4 MG/DL (0.2-1.0); BLOOD UREA NITROGEN 32 MG/DL (7-18); CARBON DIOXIDE LEVEL 27 MEQ/L (21-32); CHLORIDE LEVEL 108 MEQ/L (98-107); CREATININE FOR GFR 1.24 MG/DL (0.55-1.30); GLOMERULAR FILTRATION RATE 43.9 (>32); GLUCOSE, FASTING 103 MG/DL (70-100); MAGNESIUM LEVEL 1.8 MG/DL (1.8-2.4); POTASSIUM SERUM 4.5 MEQ/L (3.5-5.1); SODIUM LEVEL 141 MEQ/L (136-145); TOTAL PROTEIN 6.4 GM/DL (6.4-8.2)
[2018-07-18] MEDS: ENOXAPARIN 40 MG/0.4 ML SYRINGE (J1650) SC (07:52)
[2018-07-18] MEDS: HumaLOG INSULIN (NovoLOG) PER UNIT SC ×4 (07:53→21:00)
[2018-07-18] MEDS: MULTIVITAMINS/MINERALS THERAP 1 TAB PO (07:54)
[2018-07-18] MEDS: ASPIRIN 81 MG ENTERIC TAB PO (07:54)
[2018-07-18] MEDS: DOCUSATE SODIUM 100 MG CAP PO ×2 (07:54→21:36)
[2018-07-18] MEDS: CYANOCOBALAMIN 500 MCG TAB PO (07:54)
[2018-07-18] MEDS: OMEPRAZOLE 20 MG CAP PO ×2 (07:54→21:36)
[2018-07-18] MEDS: VITAMIN D 1,000 INTERNATIONAL UNITS TABLET PO (07:54)
[2018-07-18] MEDS: NYSTATIN 100,000 UNITS/GM TOPICAL PWD 15 GM TOP ×2 (07:56→21:37)
[2018-07-18 12:12] LABS: BEDSIDE GLUCOSE 87 MG/DL (83-110)
[2018-07-18 16:46] LABS: BEDSIDE GLUCOSE 118 MG/DL (83-110)
[2018-07-18] MEDS: CALCIUM CARBONATE 500 MG CHEW U/D PO (21:36)
[2018-07-18] MEDS: ATORVASTATIN 20 MG TAB PO (21:36)
[2018-07-18] MEDS: LATANOPROST 0.005% OPHTH SOLN 2.5 ML OU (21:37)
[2018-07-18 21:53] LABS: BEDSIDE GLUCOSE 136 MG/DL (83-110)
[2018-07-19] MEDS: SLF 3 ML SYR IV ×3 (05:48→21:34)
[2018-07-19] MEDS: HumaLOG INSULIN (NovoLOG) PER UNIT SC ×4 (07:30→21:00)
[2018-07-19 08:30] LABS: BASO # 0.1 10^3/uL (0.0-0.2); BASO % 0.8 % (0.0-1.0); EOS # 0.8 10^3/uL (0.0-0.50); EOS % 9.3 % (0.0-3.0); HEMATOCRIT 40.7 % (36.0-47.0); HEMOGLOBIN 12.8 g/dl (12.0-15.5); IMMATURE GRANULOCYTE % 0.3 % (0-3.0); LYMPH # 1.2 10^3/uL (1.5-4.5); LYMPH % 14.1 % (24.0-44.0); MEAN CORPUSCULAR HEMOGLOBIN 26.8 pg (27.0-33.0); MEAN CORPUSCULAR HGB CONC 31.4 g/dl (32.0-36.5); MEAN CORPUSCULAR VOLUME 85.3 fl (80.0-96.0); MONO # 0.6 10^3/uL (0.0-0.8); MONO % 6.4 % (0.0-5.0); NEUTROPHILS # 5.9 10^3/uL (1.8-7.7); NEUTROPHILS % 69.1 % (36.0-66.0); PLATELET COUNT, AUTOMATED 221 10^3/uL (150-450); RED BLOOD COUNT 4.77 10^6/uL (4.00-5.40); RED CELL DISTRIBUTION WIDTH 14.9 % (11.5-14.5); WHITE BLOOD COUNT 8.6 10^3/uL (4.0-10.0)
[2018-07-19 08:57] LABS: ALBUMIN 3.5 GM/DL (3.2-5.2); ALBUMIN/GLOBULIN RATIO 0.92 (1.00-1.93); ALKALINE PHOSPHATASE 65 U/L (45-117); ALT/SGPT 27 U/L (12-78); ANION GAP 5 MEQ/L (8-16); AST/SGOT 30 U/L (7-37); BILIRUBIN,TOTAL 0.3 MG/DL (0.2-1.0); BLOOD UREA NITROGEN 26 MG/DL (7-18); C REACTIVE PROTEIN QUANTITATIV < 0.30 MG/DL (0.00-0.30); CALCIUM LEVEL 9.6 MG/DL (8.8-10.2); CARBON DIOXIDE LEVEL 28 MEQ/L (21-32); CHLORIDE LEVEL 105 MEQ/L (98-107); CREATININE FOR GFR 1.17 MG/DL (0.55-1.30); GLOMERULAR FILTRATION RATE 46.9 (>32); GLUCOSE, FASTING 181 MG/DL (70-100); MAGNESIUM LEVEL 1.9 MG/DL (1.8-2.4); POTASSIUM SERUM 4.5 MEQ/L (3.5-5.1); SODIUM LEVEL 138 MEQ/L (136-145); TOTAL PROTEIN 7.3 GM/DL (6.4-8.2)
[2018-07-19] MEDS: NYSTATIN 100,000 UNITS/GM TOPICAL PWD 15 GM TOP ×2 (09:00→21:34)
[2018-07-19] MEDS: DOCUSATE SODIUM 100 MG CAP PO ×2 (09:40→21:32)
[2018-07-19] MEDS: ASPIRIN 81 MG ENTERIC TAB PO (09:40)
[2018-07-19] MEDS: VITAMIN D 1,000 INTERNATIONAL UNITS TABLET PO (09:41)
[2018-07-19] MEDS: MULTIVITAMINS/MINERALS THERAP 1 TAB PO (09:41)
[2018-07-19] MEDS: ACETAMINOPHEN TAB 650MG DOSE (2X325MG) PO ×2 (09:41→20:01)
[2018-07-19] MEDS: CYANOCOBALAMIN 500 MCG TAB PO (09:41)
[2018-07-19] MEDS: OMEPRAZOLE 20 MG CAP PO ×2 (09:41→21:32)
[2018-07-19] MEDS: ENOXAPARIN 40 MG/0.4 ML SYRINGE (J1650) SC (09:42)
[2018-07-19] MEDS: ATORVASTATIN 20 MG TAB PO (21:32)
[2018-07-19] MEDS: CALCIUM CARBONATE 500 MG CHEW U/D PO (21:32)
[2018-07-19] MEDS: LATANOPROST 0.005% OPHTH SOLN 2.5 ML OU (21:34)
[2018-07-20 03:08] LABS: BEDSIDE GLUCOSE 117 MG/DL (83-110)
[2018-07-20 03:08] LABS: BEDSIDE GLUCOSE 115 MG/DL (83-110)
[2018-07-20 03:08] LABS: BEDSIDE GLUCOSE 105 MG/DL (83-110)
[2018-07-20 03:08] LABS: BEDSIDE GLUCOSE 102 MG/DL (83-110)
[2018-07-20] MEDS: SLF 3 ML SYR IV (06:00)
[2018-07-20 06:12] LABS: BASO % 0.5 % (0.0-1.0); EOS # 0.6 10^3/uL (0.0-0.50); EOS % 7.4 % (0.0-3.0); HEMATOCRIT 36.1 % (36.0-47.0); HEMOGLOBIN 11.3 g/dl (12.0-15.5); IMMATURE GRANULOCYTE % 0.3 % (0-3.0); LYMPH # 1.5 10^3/uL (1.5-4.5); MEAN CORPUSCULAR HGB CONC 31.3 g/dl (32.0-36.5); MEAN CORPUSCULAR VOLUME 83.2 fl (80.0-96.0); MONO # 0.6 10^3/uL (0.0-0.8); MONO % 7.7 % (0.0-5.0); NEUTROPHILS # 4.9 10^3/uL (1.8-7.7); NEUTROPHILS % 64.1 % (36.0-66.0); PLATELET COUNT, AUTOMATED 206 10^3/uL (150-450); RED BLOOD COUNT 4.34 10^6/uL (4.00-5.40); RED CELL DISTRIBUTION WIDTH 14.9 % (11.5-14.5); WHITE BLOOD COUNT 7.7 10^3/uL (4.0-10.0)
[2018-07-20 06:21] LABS: ALBUMIN 3.1 GM/DL (3.2-5.2); ALBUMIN/GLOBULIN RATIO 0.94 (1.00-1.93); ALKALINE PHOSPHATASE 60 U/L (45-117); ALT/SGPT 26 U/L (12-78); ANION GAP 7 MEQ/L (8-16); AST/SGOT 28 U/L (7-37); BILIRUBIN,TOTAL 0.4 MG/DL (0.2-1.0); BLOOD UREA NITROGEN 30 MG/DL (7-18); C REACTIVE PROTEIN QUANTITATIV < 0.30 MG/DL (0.00-0.30); CALCIUM LEVEL 8.8 MG/DL (8.8-10.2); CARBON DIOXIDE LEVEL 27 MEQ/L (21-32); CHLORIDE LEVEL 108 MEQ/L (98-107); CREATININE FOR GFR 1.07 MG/DL (0.55-1.30); GLUCOSE, FASTING 98 MG/DL (70-100); MAGNESIUM LEVEL 1.7 MG/DL (1.8-2.4); POTASSIUM SERUM 4.1 MEQ/L (3.5-5.1); SODIUM LEVEL 142 MEQ/L (136-145); TOTAL PROTEIN 6.4 GM/DL (6.4-8.2)
[2018-07-20] MEDS: HumaLOG INSULIN (NovoLOG) PER UNIT SC (07:30)
[2018-07-20] MEDS: MAG SULF 1GM/100ML (MAG RUN) 1 GM in APPROPRIATE DILUENT 1 EA IV (08:25)
[2018-07-20] MEDS: DOCUSATE SODIUM 100 MG CAP PO ×2 (09:00→09:30)
[2018-07-20] MEDS: ASPIRIN 81 MG ENTERIC TAB PO (09:30)
[2018-07-20] MEDS: MULTIVITAMINS/MINERALS THERAP 1 TAB PO (09:31)
[2018-07-20] MEDS: OMEPRAZOLE 20 MG CAP PO (09:31)
[2018-07-20] MEDS: VITAMIN D 1,000 INTERNATIONAL UNITS TABLET PO (09:31)
[2018-07-20] MEDS: CYANOCOBALAMIN 500 MCG TAB PO (09:31)
[2018-07-20] MEDS: NYSTATIN 100,000 UNITS/GM TOPICAL PWD 15 GM TOP (09:33)
== END 2018-07-20 11:30 | DRG 291 ==
LOC: M MS5PR 07-14 13:44 → M ED 11:05 → M ED INP 15:42 → M PCU 17:08
DX: I11.0 Hypertensive heart disease with heart failure (principal); G93.41 Metabolic encephalopathy; I50.43 Acute on chronic combined systolic (congestive) and diastolic (congestive) heart failure; E78.5 Hyperlipidemia, unspecified; G25.81 Restless legs syndrome; M06.9 Rheumatoid arthritis, unspecified; E11.9 Type 2 diabetes mellitus without complications; H40.9 Unspecified glaucoma; G47.33 Obstructive sleep apnea (adult) (pediatric); K21.9 Gastro-esophageal reflux disease without esophagitis; M10.9 Gout, unspecified; G30.9 Alzheimer's disease, unspecified; M48.00 Spinal stenosis, site unspecified; F02.80 Dementia in other diseases classified elsewhere, unspecified severity, without behavioral disturbance, psychotic disturbance, mood disturbance, and anxiety; R07.89 Other chest pain; Z95.0 Presence of cardiac pacemaker; Z88.1 Allergy status to other antibiotic agents; Z88.2 Allergy status to sulfonamides; Z88.5 Allergy status to narcotic agent; Z88.8 Allergy status to other drugs, medicaments and biological substances; Z79.82 Long term (current) use of aspirin; Z79.891 Long term (current) use of opiate analgesic; Z79.899 Other long term (current) drug therapy

== ENCOUNTER → 2018-07-26 | Outpatient (REF) ==
[2018-07-26 10:46] LABS: HEMATOCRIT 40.2 % (36.0-47.0); HEMOGLOBIN 12.2 g/dl (12.0-15.5); MEAN CORPUSCULAR HGB CONC 30.3 g/dl (32.0-36.5); MEAN CORPUSCULAR VOLUME 85.7 fl (80.0-96.0); PLATELET COUNT, AUTOMATED 258 10^3/uL (150-450); RED BLOOD COUNT 4.69 10^6/uL (4.00-5.40); RED CELL DISTRIBUTION WIDTH 15.3 % (11.5-14.5); WHITE BLOOD COUNT 8.7 10^3/uL (4.0-10.0)
[2018-07-26 11:06] LABS: ANION GAP 7 MEQ/L (8-16); BLOOD UREA NITROGEN 25 MG/DL (7-18); CALCIUM LEVEL 9.1 MG/DL (8.8-10.2); CARBON DIOXIDE LEVEL 28 MEQ/L (21-32); CHLORIDE LEVEL 107 MEQ/L (98-107); CREATININE FOR GFR 1.09 MG/DL (0.55-1.30); GLOMERULAR FILTRATION RATE 50.9 (>32); GLUCOSE, FASTING 93 MG/DL (70-100); NT-PRO BNP 886 PG/ML (<450); POTASSIUM SERUM 4.2 MEQ/L (3.5-5.1); SODIUM LEVEL 142 MEQ/L (136-145)
== END ==
DX: I50.9 Heart failure, unspecified (principal)

== ENCOUNTER 2018-08-01 03:49 | Emergency (ER) | payer MEDICARE, MEDICAID, OTHER ==
[2018-08-01] MEDS: PERCOCET 5MG/325MG TAB PO (07:08)
== END 2018-08-01 10:00 | disposition home or self-care (01) ==
LOC: M ED 03:49
DX: S40.012A Contusion of left shoulder, initial encounter (principal); W18.39XA Other fall on same level, initial encounter; Y92.128 Other place in nursing home as the place of occurrence of the external cause; I10 Essential (primary) hypertension; J44.9 Chronic obstructive pulmonary disease, unspecified; Z79.899 Other long term (current) drug therapy; Z79.82 Long term (current) use of aspirin; Z88.1 Allergy status to other antibiotic agents; Z88.2 Allergy status to sulfonamides; Z88.5 Allergy status to narcotic agent
CPT/HCPCS: 73030

== ENCOUNTER → 2018-08-02 | Outpatient (REF) ==
[2018-08-02 09:41] LABS: HEMATOCRIT 38.3 % (36.0-47.0); HEMOGLOBIN 12.1 g/dl (12.0-15.5); MEAN CORPUSCULAR HEMOGLOBIN 26.8 pg (27.0-33.0); MEAN CORPUSCULAR HGB CONC 31.6 g/dl (32.0-36.5); MEAN CORPUSCULAR VOLUME 84.7 fl (80.0-96.0); PLATELET COUNT, AUTOMATED 222 10^3/uL (150-450); RED BLOOD COUNT 4.52 10^6/uL (4.00-5.40); RED CELL DISTRIBUTION WIDTH 15.1 % (11.5-14.5); WHITE BLOOD COUNT 9.8 10^3/uL (4.0-10.0)
[2018-08-02 10:27] LABS: ANION GAP 8 MEQ/L (8-16); BLOOD UREA NITROGEN 22 MG/DL (7-18); CALCIUM LEVEL 8.6 MG/DL (8.8-10.2); CARBON DIOXIDE LEVEL 27 MEQ/L (21-32); CHLORIDE LEVEL 107 MEQ/L (98-107); CREATININE FOR GFR 1.12 MG/DL (0.55-1.30); GLOMERULAR FILTRATION RATE 49.3 (>32); GLUCOSE, FASTING 94 MG/DL (70-100); NT-PRO BNP 993 PG/ML (<450); POTASSIUM SERUM 3.8 MEQ/L (3.5-5.1); SODIUM LEVEL 142 MEQ/L (136-145)
== END ==
DX: I50.9 Heart failure, unspecified (principal)

== ENCOUNTER → 2018-09-13 | Outpatient (REF) | payer MEDICARE, MEDICAID ==
[~2018-09-13] MED LIST changes: +ALBU83IN INH; +APAP325T4 PO; +ASPI1TAB PO; +ASPI81TA85 PO; +BENG1CRE3 TOP; +BREO1INH INH; +CHLO25TA PO; +COLA100C5 PO; +CRAN400C PO; +JANU25TA PO; +MAGNPOW TOP; +MECL-68 PO; +MILK120011 PO; +NYAM10003 TOP; +NYST1POW9 TOP; +OMEP40CA2 PO; +PRED20TA PO; +RAMI1CAP22 PO; -RAMI25CA PO; +REST0.05 OU; +REST0.057 OU; +SYST1SOL OU; +TUMS500C PO; +VENTAER INH; +VITAD1000T PO; +[UNRECOGNIZED DRUG - CODE] TOP
[2018-09-13 10:26] LABS: CALCIUM LEVEL 9.4 MG/DL (8.8-10.2); CREATININE FOR GFR 1.09 MG/DL (0.55-1.30); GLOMERULAR FILTRATION RATE 50.9 (>32); POTASSIUM SERUM 4.1 MEQ/L (3.5-5.1)
== END ==
PROVIDERS: ATTEND Nurse Practitioner Family
DX: I50.9 Heart failure, unspecified (principal); R06.02 Shortness of breath

== ENCOUNTER → 2018-09-27 | Outpatient (CLI) | payer MEDICARE, MEDICAID ==
[~2018-09-27] MED LIST changes: -ALBU83IN INH; -APAP325T4 PO; -ASPI1TAB PO; -BENG1CRE3 TOP; -BREO1INH INH; -CRAN400C PO; -MAGNPOW TOP; -MILK120011 PO; -NYST1POW9 TOP; -OMEP40CA2 PO; -PRED20TA PO; -REST0.057 OU; -VITAD1000T PO; -[UNRECOGNIZED DRUG - CODE] TOP
--- NOTE | 2018-09-27 13:24 | REP ---
LEFT SHOULDER, THREE VIEWS: HISTORY: Shoulder pain. There is no acute fracture or dislocation. There is mild narrowing of the joint spaces. Osteophytes are present at the acromioclavicular joint space. IMPRESSION: Degenerative change as described above. Electronically Signed by Yordan Montoya MD 09/27/2018 01:29 P
--- NOTE | 2018-09-27 13:31 | REP ---
LEFT KNEE, THREE VIEW: HISTORY: Knee pain. There is no acute fracture or dislocation. There is moderate narrowing of the medial joint space and mild narrowing of the lateral knee joint space and patellofemoral joint space. Chondrocalcinosis is present. Osteophytes are present on the patella. The bony structure is osteopenic. IMPRESSION: Degenerative change as described above. Electronically Signed by Yordan Montoya MD 09/27/2018 01:33 P
== END ==
LOC: M SMT 11:49
PROVIDERS: ATTEND Nurse Practitioner Family
DX: M17.12 Unilateral primary osteoarthritis, left knee (principal); M25.762 Osteophyte, left knee; M19.012 Primary osteoarthritis, left shoulder; M25.712 Osteophyte, left shoulder; M25.562 Pain in left knee; M25.512 Pain in left shoulder

== ENCOUNTER → 2018-10-26 | Outpatient (CLI) | payer MEDICARE, MEDICAID ==
--- NOTE | 2018-10-26 13:55 | REP ---
Chest two views HISTORY: Shortness of breath Comparison: 09/08/2018 The lungs are clear. The cardiac silhouette is enlarged. The pulmonary vasculature is normal in appearance. Degenerative change is present in the thoracic spine. The patient is status post kyphoplasty of a mid thoracic vertebral body. A cardiac pacemaker is present. IMPRESSION: Cardiomegaly. Electronically Signed by Yordan Montoya MD 10/26/2018 01:46 P
== END ==
LOC: M SMT 12:55
PROVIDERS: ATTEND Nurse Practitioner Adult Health
DX: R06.02 Shortness of breath (principal); I51.7 Cardiomegaly; M51.34 Other intervertebral disc degeneration, thoracic region; Z95.0 Presence of cardiac pacemaker

== ENCOUNTER 2018-11-05 00:53 | Emergency (ER) | payer MEDICARE, MEDICAID ==
[~2018-11-05] VITALS: Ht 154.9 cm; Wt 90.1 kg
[2018-11-05] MEDS ORDERED: CHLO25TA PO (01:26)
[2018-11-05] MEDS ORDERED: BREO1INH INH (01:26)
[2018-11-05] MEDS ORDERED: OMEP40CA2 PO (01:26)
[2018-11-05] MEDS ORDERED: BENG1CRE3 TOP (01:26)
[2018-11-05] MEDS ORDERED: [UNRECOGNIZED DRUG - CODE] TOP (01:26)
[2018-11-05] MEDS ORDERED: MAGNPOW TOP (01:26)
[2018-11-05] MEDS ORDERED: APAP325T4 PO (01:26)
[2018-11-05] MEDS ORDERED: ATOR1TAB21 PO (01:26)
[2018-11-05] MEDS ORDERED: JANU25TA PO (01:26)
[2018-11-05] MEDS ORDERED: REST0.057 OU (01:26)
[2018-11-05] MEDS ORDERED: OXYC1TAB23 PO ×2 (01:26→01:33)
[2018-11-05] MEDS ORDERED: VENTAER INH (01:26)
[2018-11-05] MEDS ORDERED: COLA100C5 PO (01:26)
[2018-11-05] MEDS ORDERED: CEVI30CAP PO (01:26)
[2018-11-05] MEDS ORDERED: ALBU83IN INH (01:26)
[2018-11-05] MEDS ORDERED: ASPI1TAB PO (01:32)
[2018-11-05] MEDS ORDERED: TUMS500C PO (01:32)
[2018-11-05] MEDS ORDERED: MILK120011 PO (01:32)
[2018-11-05] MEDS ORDERED: VITAD1000T PO (01:32)
[2018-11-05] MEDS ORDERED: VITA10002 PO (01:33)
[2018-11-05] MEDS ORDERED: CRAN400C PO (01:33)
[2018-11-05] MEDS ORDERED: NYST1POW9 TOP (01:33)
[2018-11-05] MEDS ORDERED: XALA0.007 OU (01:33)
[2018-11-05] MEDS ORDERED: VITMTA PO (01:33)
[2018-11-05] MEDS ORDERED: FUROSEMIDE 100 MG/10 ML VIAL (J1940) IV ONE (02:00)
[2018-11-05] MEDS ORDERED: dexameTHASONE 20 MG/5 ML VIAL (J1100) IV ONE (02:00)
[2018-11-05] MEDS: IPRATROPIUM 0.5MG/ALBUTEROL 2.5MG INH SOL UD 3ML (DUONEB)(J7620) NEB SCH ×3 (02:15→02:55)
[2018-11-05 03:23] VITALS: BP 115/64
[2018-11-05] MEDS ORDERED: PRED20TA PO (04:01)
--- NOTE | 2018-11-05 08:31 | REP ---
Clinical: Dyspnea. Technique: PA and lateral. Comparison: 10/26/2018. Note: Examination is severely limited due to technique. Findings: The mediastinum and cardiac silhouette are stable. Dual lead pacemaker in satisfactory position. Chronic changes are noted. Trace basilar atelectasis cannot be excluded. Skeletal structures are grossly intact. Impression: Severely limited examination. If the patient remains symptomatic consider repeat imaging. Minimal basilar atelectasis cannot be excluded. Electronically Signed by Karl Chicas MD 11/05/2018 08:23 A
== END 2018-11-05 05:14 | disposition home or self-care (01) ==
LOC: M ED 00:53
DX: R06.00 Dyspnea, unspecified (principal); E11.9 Type 2 diabetes mellitus without complications; I51.9 Heart disease, unspecified; E78.5 Hyperlipidemia, unspecified; J44.9 Chronic obstructive pulmonary disease, unspecified; K21.9 Gastro-esophageal reflux disease without esophagitis; Z88.1 Allergy status to other antibiotic agents; Z88.5 Allergy status to narcotic agent; Z88.2 Allergy status to sulfonamides; Z79.899 Other long term (current) drug therapy; Z79.51 Long term (current) use of inhaled steroids; Z79.82 Long term (current) use of aspirin; Z79.84 Long term (current) use of oral hypoglycemic drugs; Z79.891 Long term (current) use of opiate analgesic
CPT/HCPCS: 71046; 94640; 96374; 96375; 99284; J1100; J1940

== ENCOUNTER 2018-11-11 20:08 | Inpatient (IN) | payer MEDICARE, MEDICAID ==
[~2018-11-11] VITALS: Ht 157.5 cm; Wt 98.0 kg
[~2018-11-11 20:08] MED LIST changes: +ALBU83IN INH; +APAP325T4 PO; +ASPI1TAB PO; +BENG1CRE3 TOP; +BREO1INH INH; +CRAN400C PO; +MAGNPOW TOP; +MILK120011 PO; +NYST1POW9 TOP; +OMEP40CA2 PO; +PRED20TA PO; +REST0.057 OU; +VITAD1000T PO; +[UNRECOGNIZED DRUG - CODE] TOP
[2018-11-11] MEDS ORDERED: IPRATROPIUM 0.5MG/ALBUTEROL 2.5MG INH SOL UD 3ML (DUONEB)(J7620) NEB ONE (20:45)
[2018-11-11 20:57] LABS: VENOUS HCO3 23.1 MEQ/L (23.0-27.0); VENOUS O2 SATURATION 86.9 % (60.0-80.0); VENOUS PARTIAL PRESSURE CO2 36.9 mmHg (38.0-50.0); VENOUS PH 7.415 UNITS (7.330-7.430); VENOUS STANDARD HCO3 23.4 MEQ/L; VENOUS TOTAL CO2 24.3 MEQ/L (24.0-28.0)
[2018-11-11 20:58] LABS: BASO % 0.2 % (0.0-1.0); EOS # 0.2 10^3/uL (0.0-0.50); EOS % 1.2 % (0.0-3.0); HEMATOCRIT 37.7 % (36.0-47.0); HEMOGLOBIN 11.9 g/dl (12.0-15.5); LYMPH % 11.5 % (24.0-44.0); MEAN CORPUSCULAR HEMOGLOBIN 25.4 pg (27.0-33.0); MEAN CORPUSCULAR HGB CONC 31.6 g/dl (32.0-36.5); MEAN CORPUSCULAR VOLUME 80.4 fl (80.0-96.0); MONO % 5.7 % (0.0-5.0); NEUTROPHILS # 14.2 10^3/uL (1.8-7.7); PLATELET COUNT, AUTOMATED 265 10^3/uL (150-450); RED BLOOD COUNT 4.69 10^6/uL (4.00-5.40); WHITE BLOOD COUNT 17.7 10^3/uL (4.0-10.0)
[2018-11-11] MEDS ORDERED: TESS100C PO (21:16)
[2018-11-11] MEDS ORDERED: XANA0.25 PO (21:17)
[2018-11-11 21:30] LABS: CALCIUM LEVEL 8.8 MG/DL (8.8-10.2); CREATININE FOR GFR 1.34 MG/DL (0.55-1.30); GLOMERULAR FILTRATION RATE 40.1 (>32); MB/CK RELATIVE INDEX 5.9 (< OR =4); POTASSIUM SERUM 4.5 MEQ/L (3.5-5.1); TROPONIN I 0.07 NG/ML (< 0.10)
[2018-11-11 21:33] LABS: INFLUENZA A AMPLIFICATION NEGATIVE (NEGATIVE); INFLUENZA B AMPLIFICATION NEGATIVE (NEGATIVE)
[2018-11-11] MEDS ORDERED: cefTRIAXone SOD 1 GM in D5W MINI-BAG PLUS 50 ML IV ONE (22:45)
--- NOTE | 2018-11-11 23:54 | REPVR ---
EXAM: CT Chest Without Contrast EXAM DATE/TIME: 11/11/2018 11:01 PM CLINICAL HISTORY: 83 years old, female; Signs and symptoms; Shortness of breath; Additional info: Pneumonia TECHNIQUE: Axial computed tomography images of the chest without intravenous contrast. All CT scans at this facility use at least one of these dose optimization techniques: automated exposure control; mA and/or kV adjustment per patient size (includes targeted exams where dose is matched to clinical indication); or iterative reconstruction. Coronal and sagittal reformatted images were created and reviewed. MIP reconstructed images were created and reviewed. COMPARISON: CR Chest, 2 view PA, Lat 11/11/2018 9:54 PM FINDINGS: Lungs: Airspace infiltrate right lung base. Pleural space: Normal. No pneumothorax. No pleural effusion. Heart: Cardiomegaly. Impression Small pericardial effusion. Aorta: The aorta demonstrates mild atherosclerotic calcification. Lymph nodes: Unremarkable. No enlarged lymph nodes. Bones/joints: The spine demonstrates moderate degenerative changes. There is a severe compression deformity in the upper thoracic vertebrae, age indeterminate. Soft tissues: Unremarkable. IMPRESSION: Airspace infiltrate right lung base. Mild bronchiectasis right lower lobe. Impression there Electronically signed by: Laith Shankar On 11/11/2018 23:53:34 PM
[2018-11-12] MEDS ORDERED: BISACODYL 5 MG TAB PO PRN
[2018-11-12] MEDS ORDERED: NS 1,000 ML IV ONE
[2018-11-12] MEDS: AZITHROMYCIN INJ 500 MG, VIAL MATE ADAPTER 1 EACH in D5W 250 ML IV SCH ×2 (02:29→23:59)
[2018-11-12] MEDS: ACETAMINOPHEN TAB 650MG DOSE (2X325MG) PO PRN ×2 (02:53→20:24)
--- NOTE | 2018-11-12 03:38 | HPEPDOC ---
[facility] Medical History & Physical Date of Admission Nov 11, 2018 Attending Physician: HEVER MATA MD History and Physical CHIEF COMPLAINT: Cough/Shortness of Breath HISTORY OF PRESENT ILLNESS: Patient is an 83 year old female with a past medical history significant for chronic diastolic heart failure, hypertension, hyperlip idemia, restless leg syndrome, rheumatoid arthritis, spinal stenosis, and diabetes who presented to the [facility] Emergency Department with complaint of cough and shortness of breath. Patient states that approximately 3 days ago she developed a cough. She states that she would have coughing episodes which would make it difficult to breath. She also stated that she has had difficulty eating her food as her coughing frequently made her cough. She states that over the past few days her cough has worsened as well as her shortness of breath. She does admit to some sputum production which she described as "pea green". Patient states that she was hospitalized in July of 2018 for a CHF exacerbation. She states she was having similar symptoms today and felt it necessary to come in to the ER for evaluation. At the Emergency department the patient was found to be afebrile. She did have an elevated WBC. She did receive a chest x-ray and a chest CT. The chest CT demonstrated an infiltrate in the right lung base as well as mild bronchiectasis of the right lower lobe. Patient received a dose of Rocephin in the ER. She denies having any fevers today or previously but admits to occasional chills. She denies wheezing. She denies difficulty laying flat. She denies chest pain. H ospitalist service was consulted and patient was admitted for further evaluation PAST MEDICAL HISTORY: 1. Congestive Heart Failure Diastolic Dysfunction 2. Rheumatoid Arthritis 3. Spinal Stenosis 4. Diabetes Type 2 5. Glaucoma 6. MICHELLE on CPAP 7. Hypertension 8. GERD 9. Hyperlipidemia 10 Restless leg syndrome 11. Gout PAST SURGICAL HISTORY: 1. Colectomy with reanastomosis 2. Dual chamber pacemaker for HX of third degree AV block SOCIAL HISTORY: Patient is a former smoker and quit many years ago. She denies alcohol use or illicit drug use FAMILY HISTORY: Non-contributory ALLERGIES: Please see below. REVIEW OF SYSTEMS: CONSTITUTIONAL: Denies fevers, chills, night sweats, unintentional weightloss or weight gain HEENT: Complains of cough. Complains of congestion. Denies dysphagia but admits to "choking" when eating from her coughing CARDIOVASCULAR: Denies chest pain, palpitations, or feelings of the heart racing RESPIRATORY: Complains of worsening shortness of breath. Denies wheezing. Denies orthopnea. Denies pleuritic symptoms. Denies paroxysmal nocturnal dyspnea GASTROINTESTINAL: Denies diarrhea or constipation. Denies abdominal pain. GENITOURINARY: Denies difficulty with urination. SKIN: Denies rashes or lesions NEUROLOGICAL: Denies changes in speech or gait. Denies muscle weakness PSYCHIATRIC: Denies depression or anxiety ENDOCRINE: Denies heat intolerance or cold intolerance HEMATOLOGIC/LYMPHATIC: Denies easy bruising or easy bleeding HOME MEDICATIONS: Please see below. PHYSICAL EXAMINATION: VITAL SIGNS: Temperature 98.3, pulse 68, respiratory rate 28, blood pressure 115/55, pulse oximetry 93% on room air. GENERAL APPEARANCE: Patient is awake alert and oriented. She appears in no acute distress. She is pleasant and conversive. HEENT: Atruamatic, normocephalic. Eyes are non-icteric. No conjunctival injection. Trachea is midline. Mucous membranes are pink and moist. CARDIOVASCULAR: Normal S1 and S2. Regular rate and rhythm. No clicks, rubs, or murmurs noted on exam. No JVD. No carotid bruits LUNGS: Rhonchorous lung sounds present throughout. No wheezing. Slight rales. No accessory muscle use. ABDOMEN: Obese, nondistended. Soft nontender to palpation in all four quadrants. Positive bowel sounds. EXTREMITIES: No edema. Pulses full and equal NEUROLOGICAL: Speech normal. 5/5 muscle strength in upper and lower extremities PSYCHIATRIC: Mood and affect appear appropriate LABORATORY DATA: See below. IMAGING: EXAM: CT Chest Without Contrast EXAM DATE/TIME: 11/11/2018 11:01 PM CLINICAL HISTORY: 83 years old, female; Signs and symptoms; Shortness of breath; Additional info: Pneumonia TECHNIQUE: Axial computed tomography images of the chest without intravenous contrast. All CT scans at this facility use at least one of these dose optimization techniques: automated exposure control; mA and/or kV adjustment per patient size (includes targeted exams where dose is matched to clinical indication); or iterative reconstruction. Coronal and sagittal reformatted images were created and reviewed. MIP reconstructed images were created and reviewed. COMPARISON: CR Chest, 2 view PA, Lat 11/11/2018 9:54 PM FINDINGS: Lungs: Airspace infiltrate right lung base. Pleural space: Normal. No pneumothorax. No pleural effusion. Heart: Cardiomegaly. Impression Small pericardial effusion. Aorta: The aorta demonstrates mild atherosclerotic calcification. Lymph nodes: Unremarkable. No enlarged lymph nodes. Bones/joints: The spine demonstrates moderate degenerative changes. There is a severe compression deformity in the upper thoracic vertebrae, age indeterminate. Soft tissues: Unremarkable. IMPRESSION: Airspace infiltrate right lung base. Mild bronchiectasis right lower lobe. Impression there Electronically signed by: Laith Shankar On 11/11/2018 23:53:34 PM MICROBIOLOGY: Please see below. ASSESSMENT and PLAN 1. Shortness of Breath 2/2 Right lower Lobe Community Aquired Pneumonia -Patient developed a cough 3 days ago with shortness of breath. She has remained afebrile although with an elevated white count. CT imaging of her chest has demonstrated a right lower lobe infiltrate. She has mentioned that she had difficulty swallowing during one of her coughing spells which could suggest a possible aspiration pneumonia. She does have a history of CHF however, on exam s he does not appear to be in exacerbation -Patient is currently receiving Rocephin and Azithromycin for suspected CAP. -Will trend WBC -Incentive Spirometry 2. CHF diastolic dysfunction -Currently stable. Will continue home medications 3. DVT prophylaxis -TEDs and Sequentials Vital Signs Vital Signs Date Time Temp Pulse Resp B/P (MAP) Pulse Ox O2 Delivery O2 Flow Rate FiO2 11/12/18 01:45 98.3 68 95 Room Air 11/11/18 21:45 114/63 (80) 11/11/18 20:26 28 Laboratory Data Labs 24H Laboratory Tests 2 11/11/18 20:49: Immature Granulocyte % (Auto) 1.4, White Blood Count 17.7H, Red Blood Count 4.69, Hemoglobin 11.9L, Hematocrit 37.7, Mean Corpuscular Volume 80.4, Mean Corpuscular Hemoglobin 25.4L, Mean Corpuscular Hemoglobin Concent 31.6L, Red Cell Distribution Width 14.8H, Platelet Count 265, Neutrophils (%) (Auto) 80.0H, Lymphocytes (%) (Auto) 11.5L, Monocytes (%) (Auto) 5.7H, Eosinophils (%) (Auto) 1.2, Basophils (%) (Auto) 0.2, Neutrophils # (Auto) 14.2H, Lymphocytes # (Auto) 2.0, Monocytes # (Auto) 1.0H, Eosinophils # (Auto) 0.2, Basophils # (Auto) 0.0, Nucleated Red Blood Cells % (auto) 0.0, Blood Gas Bicarbonate Standard 23.4, Venous Blood pH 7.415, Venous Blood Partial Pressure CO2 36.9L, Venous Blood Partial Pressure O2 53.0H, Venous Blood Total Carbon Dioxide 24.3, Venous Blood HCO3 23.1, Venous Blood Oxygen Saturation 86.9H, Venous Blood Base Excess -1.0, Anion Gap 8, Glomerular Filtration Rate 40.1, Lactic Acid Level 1.9, Blood Urea Nitrogen 38H, Creatinine 1.34H, Sodium Level 142, Potassium Level 4.5, Chloride Level 109H, Carbon Dioxide Level 25, Calcium Level 8.8, Total Creatine Kinase 78, Creatine Kinase MB 5.0H, Creatine Kinase MB Relative Index 5.90H, Troponin I 0.07, Influenza Type A (RT-PCR) NEGATIVE, Influenza Type B (RT-PCR) NEGATIVE CBC/BMP Laboratory Tests 11/11/18 20:49 Red Blood Count 4.69, Mean Corpuscular Volume 80.4, Mean Corpuscular Hemoglobin 25.4 L, Mean Corpuscular Hemoglobin Concent 31.6 L, Red Cell Distribution Width 14.8 H, Neutrophils (%) (Auto) 80.0 H, Lymphocytes (%) (Auto) 11.5 L, Monocytes (%) (Auto) 5.7 H, Eosinophils (%) (Auto) 1.2, Basophils (%) (Auto) 0.2, Neutrophils # (Auto) 14.2 H, Lymphocytes # (Auto) 2.0, Monocytes # (Auto) 1.0 H, Eosinophils # (Auto) 0.2, Basophils # (Auto) 0.0, Calcium Level 8.8, Total Creatine Kinase 78 Microbiology Microbiology 11/11/18 Blood Culture, Received Pending 11/11/18 Blood Culture, Received Pending Home Medications Scheduled (Compound W) 17 % Liq, 1 APLCT TOP BID APPLY TO AFFECTED AREA ON FOOT. (Restasis Multidose) 0.05 % Emu, 1 DROP OU BID Alprazolam (Xanax) 0.25 Mg Tab, 0.25 MG PO QHS NEW MEDICATION Aspirin (Aspirin 81) 81 Mg Tab, 81 MG PO DAILY Atorvastatin Calcium (Atorvastatin Calcium) 20 Mg Tab, 20 MG PO QHS Chlorthalidone (Chlorthalidone) 25 Mg Tab, 12.5 MG PO Q2D Cranberry Extract (Cranberry) 400 Mg Cap, 800 MG PO DAILY Cyanocobalamin (Vitamin B-12) 1,000 Mcg Tab, 1,000 MCG PO DAILY Fluticasone/Vilanterol (Breo Ellipta 100-25 Mcg/INH) 1 Inh Inh, 1 PUFF INH DAILY Latanoprost (Xalatan) 0.005 % Meryl, 1 DROP OU QHS Magnesium Sulfate Heptahydrate (Epsom Salt) 1 Pow Pow, 1 APLCT TOP BID ADD 1/2 CUP TO FOOTBATH BID Multivitamins *[facility] STOCKED* (Thera M Plus *[facility] STOCKED*) 1 Tab Tab, 1 TAB PO DAILY Omeprazole (Omeprazole) 40 Mg Cap, 40 MG PO DAILY Oxycodone/Acetaminophen (Oxycodone/Acetaminophen 5-325 mg) 1 Tab Tab, 1 TAB PO QHS AT 1900. Sitagliptin Phosphate (Januvia) 25 Mg Tab, 25 MG PO DAILY Vitamin D (Vitamin D3) 1,000 Units Tab, 1,000 UNITS PO DAILY Scheduled PRN (Bengay Greaseless 10-15 %) 1 Cre Cre, 1 APLCT TOP TID PRN for PAIN Acetaminophen (Apap) 325 Mg Tab, 650 MG PO Q4H PRN for PAIN Albuterol Sulfate (Ventolin Hfa) 108 Mcg/Act Aer, 2 PUFFS INH Q4H PRN for SHORTNESS OF BREATH Albuterol Sulfate (Albuterol Sulfate) 2.5 Mg/3 Ml Nebu, 2.5 MG INH Q4H PRN for SHORTNESS OF BREATH Benzonatate (Tessalon Perles) 100 Mg Cap, 200 MG PO Q8H PRN for COUGH Calcium Carbonate (Tums) 500 Mg Chw, 1,000 MG PO TID PRN for DYSPEPSIA Cevimeline Hydrochloride Hemih (Evoxac) 30 Mg Cap, 30 MG PO TID PRN for DRY MOUT H Docusate Sodium (Colace) 100 Mg Cap, 100 MG PO DAILY PRN for CONSTIPATION Milk Of Magnesia (Milk of Magnesia) 1,200 Mg/15 Ml Leonor, 30 ML PO DAILY PRN for CONSTIPATION Nystatin (Nystatin Powder) 100,000 Unit/Gm Pow, 1 APLCT TOP BID PRN for RASH APPLY TO RASH. Oxycodone/Acetaminophen (Oxycodone/Acetaminophen 5-325 mg) 1 Tab Tab, 1 TAB PO Q8H PRN for PAIN Allergies Coded Allergies: Codeine (Verified Allergy, Unknown, HAS TAKEN PERCOCET WITHOUT PROBLEMS, 07/09/18) Doxycycline (Unverified Allergy, Unknown, 07/09/18) Streptomycin (Verified Allergy, Unknown, 07/09/18) Sulfa Drugs (Verified Allergy, Unknown, 07/09/18) Sulfa Drugs Cross Reactors (Verified Allergy, Unknown, 07/09/18) GME ATTESTATION GME ATTESTATION My faculty preceptor for this patient encounter was physically present during the encounter and was fully available. All aspects of the patient interview, examination, medical decision making process, and medical care plan development were reviewed and approved by the faculty preceptor. The faculty preceptor is aware and concurs with the plan as stated in the body of this note and will attest to such by his/her cosignature. ROSIE ROSAS DO Nov 12, 2018 03:38
[2018-11-12] MEDS ORDERED: ALBUTEROL 90 MCG/ACT 8GM HFA INHALER INH PRN (03:45)
[2018-11-12] MEDS ORDERED: CALCIUM CARBONATE 500 MG CHEW U/D PO PRN (03:45)
[2018-11-12] MEDS ORDERED: MOM 30ML SUSPENSION UDC PO PRN (03:45)
[2018-11-12] MEDS ORDERED: DOCUSATE SODIUM 100 MG CAP PO PRN (03:45)
[2018-11-12] MEDS ORDERED: ALBUTEROL SULFATE 2.5 MG/0.5 ML INH NEB SOLN INH PRN (03:45)
--- NOTE | 2018-11-12 05:05 | ECGEPIP ---
Stationary ECG Study [facility] - ED Test Date: 2018-11-11 Pat Name: GRACE TELLEZ Department: Room: - Gender: F Integration Manager: : 1935 Requested By: ROSIE Hanna Order Number: [id number] Reading MD: Jaden Baltazar Measurements Intervals [place] Rate: 84 P: 43 [place]: 186 QRS: -69 QRSD: 137 T: 85 QT: 394 QTc: 468 Interpretive Statements SINUS RHYTHM WITH OCCASIONAL SUPRAVENTRICULAR PREMATURE COMPLEXES POSSIBLE LEFT ATRIAL ENLARGEMENT INCOMPLETE LEFT BUNDLE BRANCH BLOCK LAFB SIMILAR TO 07/09/18 Electronically Signed On 11-12-2018 5:05:37 EST by Jaden Baltazar
[2018-11-12 06:36] LABS: BASO % 0.2 % (0.0-1.0); EOS # 0.3 10^3/uL (0.0-0.50); EOS % 2.5 % (0.0-3.0); HEMATOCRIT 37.7 % (36.0-47.0); HEMOGLOBIN 11.9 g/dl (12.0-15.5); LYMPH # 1.5 10^3/uL (1.5-4.5); LYMPH % 11.3 % (24.0-44.0); MEAN CORPUSCULAR HEMOGLOBIN 25.2 pg (27.0-33.0); MEAN CORPUSCULAR HGB CONC 31.6 g/dl (32.0-36.5); MEAN CORPUSCULAR VOLUME 79.7 fl (80.0-96.0); MONO # 0.8 10^3/uL (0.0-0.8); MONO % 5.7 % (0.0-5.0); NEUTROPHILS # 10.7 10^3/uL (1.8-7.7); NEUTROPHILS % 78.6 % (36.0-66.0); PLATELET COUNT, AUTOMATED 235 10^3/uL (150-450); RED BLOOD COUNT 4.73 10^6/uL (4.00-5.40); WHITE BLOOD COUNT 13.6 10^3/uL (4.0-10.0)
[2018-11-12 06:44] LABS: CALCIUM LEVEL 8.6 MG/DL (8.8-10.2); CREATININE FOR GFR 1.15 MG/DL (0.55-1.30); GLOMERULAR FILTRATION RATE 47.9 (>32)
--- NOTE | 2018-11-12 08:06 | REP ---
PA and lateral chest: Comparison is 10/26/2018. There is an infiltrate above the right hemidiaphragm as an interval change. The lung hess otherwise clear. Cardiac size is upper normal for portable positioning. A dual-chamber pacemaker entering from left is unchanged. The jose, mediastinum, skeletal structures are unchanged. Impression: Infiltrate above the right hemidiaphragm as an interval change. Electronically Signed by Joao Lemus MD 11/12/2018 07:58 A
--- NOTE | 2018-11-12 09:15 | IPN ---
DATE: 11/12/2018 Darcy was seen on my rounding for the hospitalists, a patient of Cely Stallings, Nurse Practitioner, and is on Dr. Aurora Turk's hospitalist service, admitted for right lower lobe pneumonia, community acquired. She has a history of diastolic congestive heart failure, rheumatoid arthritis, type 2 diabetes, hypertensive heart disease, hyperlipidemia, restless leg syndrome, and gout. She feels weak, tired, and "washed out," but less short of breath than when she was admitted. PHYSICAL EXAMINATION: Afebrile. Vital signs stable. Oxygen (O2) saturation 96% on room air. Lungs: A few wheezes, some rhonchi right base. Heart: Regular rhythm. Abdomen: Soft, nontender, obese. Trace peripheral edema, which is her baseline. Moves arms and legs with equal strength. LABORATORY: White count is down to 13.6, hemoglobin 11.9, platelets 225. Electrolytes: Sodium 143, potassium 4.0, BUN 35, creatinine 1.1, glucose 138. IMPRESSION: 1. Community-acquired right lower lobe pneumonia. She is on Rocephin and azithromycin. She is only on a gram of Rocephin a day. We will increase that to 2 grams daily. Patient is approaching 200 pounds and would probably benefit from a higher dose of antibiotic. 2. Hypertensive heart disease. Blood pressure is under good control. 3. Hyperlipidemia. Continue her Lipitor 20 mg daily. 4. Deep vein thrombosis (DVT) prophylaxis., I do not see where she had any DVT prophylaxis ordered. I have ordered daily Lovenox. She will be in the hospital for at least 2 or 3 more days minimum.
[2018-11-12] MEDS: ASPIRIN 81 MG ENTERIC TAB PO SCH (09:19)
[2018-11-12] MEDS: OMEPRAZOLE 20 MG CAP PO SCH (09:19)
[2018-11-12] MEDS: CYANOCOBALAMIN 500 MCG TAB PO SCH (09:19)
[2018-11-12] MEDS: MULTIVITAMINS/MINERALS THERAP 1 TAB PO SCH (09:19)
[2018-11-12] MEDS: ENOXAPARIN 40 MG/0.4 ML SYRINGE (J1650) SC SCH (10:01)
[2018-11-12 18:05] VITALS: BP 168/82
[2018-11-12] MEDS: LATANOPROST 0.005% OPHTH SOLN 2.5 ML OU SCH (20:21)
[2018-11-12] MEDS: ALPRAZolam 0.25 MG TAB PO SCH (20:21)
[2018-11-12] MEDS: BENZONATATE 100 MG CAP PO PRN (20:21)
[2018-11-12] MEDS: ATORVASTATIN 20 MG TAB PO SCH (20:22)
[2018-11-12 22:00] VITALS: BP 100/62
[2018-11-12] MEDS ORDERED: cefTRIAXone SOD 1 GM in D5W MINI-BAG PLUS 50 ML IV SCH (22:00)
[2018-11-13] MEDS: ACETAMINOPHEN TAB 650MG DOSE (2X325MG) PO PRN ×3 (00:39→20:44)
[2018-11-13 01:00] VITALS: BP 140/62
[2018-11-13] MEDS: cefTRIAXone SOD 2 GM in D5W MINI-BAG PLUS 50 ML IV SCH (01:32)
[2018-11-13 06:00] VITALS: BP 140/60
[2018-11-13 06:05] LABS: BASO # 0.1 10^3/uL (0.0-0.2); BASO % 0.4 % (0.0-1.0); EOS # 0.7 10^3/uL (0.0-0.50); EOS % 5.2 % (0.0-3.0); HEMATOCRIT 37.2 % (36.0-47.0); HEMOGLOBIN 11.8 g/dl (12.0-15.5); LYMPH # 2.1 10^3/uL (1.5-4.5); LYMPH % 15.5 % (24.0-44.0); MEAN CORPUSCULAR HEMOGLOBIN 25.2 pg (27.0-33.0); MEAN CORPUSCULAR HGB CONC 31.7 g/dl (32.0-36.5); MEAN CORPUSCULAR VOLUME 79.5 fl (80.0-96.0); MONO # 0.9 10^3/uL (0.0-0.8); MONO % 6.5 % (0.0-5.0); NEUTROPHILS # 9.5 10^3/uL (1.8-7.7); NEUTROPHILS % 70.3 % (36.0-66.0); PLATELET COUNT, AUTOMATED 244 10^3/uL (150-450); RED BLOOD COUNT 4.68 10^6/uL (4.00-5.40); WHITE BLOOD COUNT 13.4 10^3/uL (4.0-10.0)
[2018-11-13 06:26] LABS: CALCIUM LEVEL 8.9 MG/DL (8.8-10.2); CREATININE FOR GFR 1.1 MG/DL (0.55-1.30); GLOMERULAR FILTRATION RATE 50.4 (>32); POTASSIUM SERUM 4.3 MEQ/L (3.5-5.1)
[2018-11-13] MEDS: BENZONATATE 100 MG CAP PO PRN ×2 (08:38→20:42)
[2018-11-13] MEDS: CYANOCOBALAMIN 500 MCG TAB PO SCH (08:38)
[2018-11-13] MEDS: MULTIVITAMINS/MINERALS THERAP 1 TAB PO SCH (08:38)
[2018-11-13] MEDS: ASPIRIN 81 MG ENTERIC TAB PO SCH (08:39)
[2018-11-13] MEDS: OMEPRAZOLE 20 MG CAP PO SCH (08:39)
[2018-11-13] MEDS: ENOXAPARIN 40 MG/0.4 ML SYRINGE (J1650) SC SCH (08:41)
[2018-11-13] MEDS: CHLORTHALIDONE 12.5MG PER 1/2 TABLET PO SCH (09:00)
[2018-11-13 14:00] VITALS: BP 142/63
[2018-11-13 16:15] VITALS: BP 110/53
[2018-11-13] MEDS: ATORVASTATIN 20 MG TAB PO SCH (20:42)
[2018-11-13] MEDS: ALPRAZolam 0.25 MG TAB PO SCH (20:42)
[2018-11-13] MEDS: LATANOPROST 0.005% OPHTH SOLN 2.5 ML OU SCH (20:42)
[2018-11-13 22:00] VITALS: BP 152/61
[2018-11-13] MEDS: AZITHROMYCIN INJ 500 MG, VIAL MATE ADAPTER 1 EACH in D5W 250 ML IV SCH (23:53)
[2018-11-14] MEDS: cefTRIAXone SOD 2 GM in D5W MINI-BAG PLUS 50 ML IV SCH (01:03)
[2018-11-14 06:00] VITALS: BP 156/88
[2018-11-14 06:30] LABS: BASO % 0.3 % (0.0-1.0); EOS # 0.6 10^3/uL (0.0-0.50); HEMOGLOBIN 10.8 g/dl (12.0-15.5); LYMPH # 1.6 10^3/uL (1.5-4.5); LYMPH % 15.2 % (24.0-44.0); MEAN CORPUSCULAR HEMOGLOBIN 25.2 pg (27.0-33.0); MEAN CORPUSCULAR HGB CONC 30.9 g/dl (32.0-36.5); MEAN CORPUSCULAR VOLUME 81.6 fl (80.0-96.0); MONO # 0.7 10^3/uL (0.0-0.8); MONO % 6.9 % (0.0-5.0); NEUTROPHILS # 7.2 10^3/uL (1.8-7.7); NEUTROPHILS % 69.8 % (36.0-66.0); PLATELET COUNT, AUTOMATED 216 10^3/uL (150-450); RED BLOOD COUNT 4.29 10^6/uL (4.00-5.40); WHITE BLOOD COUNT 10.3 10^3/uL (4.0-10.0)
[2018-11-14 06:45] LABS: CALCIUM LEVEL 8.2 MG/DL (8.8-10.2); CREATININE FOR GFR 1.04 MG/DL (0.55-1.30); GLOMERULAR FILTRATION RATE 53.7 (>32); POTASSIUM SERUM 3.9 MEQ/L (3.5-5.1)
[2018-11-14] MEDS: CYANOCOBALAMIN 500 MCG TAB PO SCH (08:30)
[2018-11-14] MEDS: MULTIVITAMINS/MINERALS THERAP 1 TAB PO SCH (08:30)
[2018-11-14] MEDS: ASPIRIN 81 MG ENTERIC TAB PO SCH (08:30)
[2018-11-14] MEDS: ENOXAPARIN 40 MG/0.4 ML SYRINGE (J1650) SC SCH (08:31)
[2018-11-14] MEDS: OMEPRAZOLE 20 MG CAP PO SCH (08:31)
--- NOTE | 2018-11-14 08:37 | IPN ---
DATE: 11/13/2018 The patient is on Dr. Aurora Turk's hospitalist service. Admitted for right lower lobe pneumonia, community acquired. She has a history of diastolic congestive heart failure (CHF), rheumatoid arthritis, type 2 diabetes, hypertensive heart disease, hyperlipidemia, restless leg syndrome, and gout. She was sitting up in the chair today. She states that she was less short of breath. She has some upper back pain from a compression deformity. Chest CT showed infiltrate in right lung base, small pericardial effusion. PHYSICAL EXAMINATION: Blood pressure 142/62, pulse 62, respirations 20, temperature 97.8, oxygen saturation 99% on room air. The patient is alert and oriented. HEENT: Pharynx, gums and tongue pink and moist. Tongue is midline. NECK: Supple without lymphadenopathy, thyromegaly or goiter. CHEST: Few scattered expiratory wheezes. No retraction. HEART: Regular. ABDOMEN: Benign. Bowel sounds positive. GENITOURINARY/RECTAL: Not done. EXTREMITIES: Equal strength, full range of motion. No clubbing, cyanosis, and edema. Peripheral pulses equal and palpable bilaterally. SKIN: Warm and dry. IMPRESSION/PLAN: 1. . 2. History of community acquired right lower lobe pneumonia. Her antibiotic has been increased to 2 grams of Rocephin a day. 3. Hypertension. Blood pressure is stable. 4. Hyperlipidemia. Continue Lipitor. 5. Deep vein thrombosis (DVT) prophylaxis. Continue Lovenox. 6. Deconditioning. Encourage the patient to be out of bed and ambulate.
[2018-11-14] MEDS: ACETAMINOPHEN TAB 650MG DOSE (2X325MG) PO PRN ×2 (08:45→20:42)
[2018-11-14] MEDS: BENZONATATE 100 MG CAP PO PRN (08:46)
--- NOTE | 2018-11-14 11:00 | IPN ---
DATE: 11/14/2018 [facility] She is on the hospitalist service with pneumonia. She is slow to recover, a lot of cough, shortness of breath and wheezing. She has a right upper lobe pneumonia and is currently on Rocephin and azithromycin. She is allergic to DOXYCYCLINE. PHYSICAL EXAMINATION: Afebrile at 155/88, oxygen saturation 96% on room air. GENERAL APPEARANCE: Elderly, frail, resting comfortably. She was just walking with a walker in the exam room . LUNGS: Expiratory wheezes and rhonchi. Frequent loose cough. HEART: Regular rhythm. ABDOMEN: Soft, nontender. EXTREMITIES: Trace peripheral edema. LABORATORIES: White count 10.3, hemoglobin 10.8, platelets 260. Sodium 143, potassium 3.9, BUN 23, creatinine , glucose 120. IMPRESSION: 1. Community acquired pneumonia, day #3 of Rocephin and azithromycin. 2. Hypertension. Blood pressure is well controlled. 3. Hyperlipidemia. Stable on current regimen. I suspect she will probably be hospitalized until later on in the week, she seems to be slow to progress and is deconditioned as well. She has physical therapy (PT) ordered for conditioning.
[2018-11-14 14:00] VITALS: BP 130/63
[2018-11-14] MEDS: LATANOPROST 0.005% OPHTH SOLN 2.5 ML OU SCH (20:32)
[2018-11-14] MEDS: ATORVASTATIN 20 MG TAB PO SCH (20:32)
[2018-11-14] MEDS: ALPRAZolam 0.25 MG TAB PO SCH (20:32)
[2018-11-14 22:00] VITALS: BP 145/84
[2018-11-14] MEDS: AZITHROMYCIN INJ 500 MG, VIAL MATE ADAPTER 1 EACH in D5W 250 ML IV SCH (23:35)
[2018-11-15] MEDS: cefTRIAXone SOD 2 GM in D5W MINI-BAG PLUS 50 ML IV SCH (02:04)
[2018-11-15] MEDS: ACETAMINOPHEN TAB 650MG DOSE (2X325MG) PO PRN ×3 (02:50→22:11)
[2018-11-15 06:00] VITALS: BP 121/64
[2018-11-15 06:32] LABS: BASO % 0.3 % (0.0-1.0); EOS # 0.5 10^3/uL (0.0-0.50); EOS % 5.5 % (0.0-3.0); HEMATOCRIT 34.9 % (36.0-47.0); HEMOGLOBIN 10.8 g/dl (12.0-15.5); LYMPH # 1.7 10^3/uL (1.5-4.5); MEAN CORPUSCULAR HEMOGLOBIN 25.1 pg (27.0-33.0); MEAN CORPUSCULAR HGB CONC 30.9 g/dl (32.0-36.5); MEAN CORPUSCULAR VOLUME 81.2 fl (80.0-96.0); MONO # 0.7 10^3/uL (0.0-0.8); MONO % 7.6 % (0.0-5.0); NEUTROPHILS # 6.4 10^3/uL (1.8-7.7); NEUTROPHILS % 67.2 % (36.0-66.0); PLATELET COUNT, AUTOMATED 211 10^3/uL (150-450); WHITE BLOOD COUNT 9.6 10^3/uL (4.0-10.0)
[2018-11-15 07:04] LABS: CALCIUM LEVEL 7.8 MG/DL (8.8-10.2); GLOMERULAR FILTRATION RATE 56.2 (>32); POTASSIUM SERUM 3.5 MEQ/L (3.5-5.1)
[2018-11-15] MEDS: ASPIRIN 81 MG ENTERIC TAB PO SCH (08:38)
[2018-11-15] MEDS: MULTIVITAMINS/MINERALS THERAP 1 TAB PO SCH (08:38)
[2018-11-15] MEDS: CHLORTHALIDONE 12.5MG PER 1/2 TABLET PO SCH (08:39)
[2018-11-15] MEDS: OMEPRAZOLE 20 MG CAP PO SCH (08:39)
[2018-11-15] MEDS: CYANOCOBALAMIN 500 MCG TAB PO SCH (08:39)
[2018-11-15] MEDS: ENOXAPARIN 40 MG/0.4 ML SYRINGE (J1650) SC SCH (08:40)
[2018-11-15 14:00] VITALS: BP 114/53
[2018-11-15] MEDS ORDERED: DEXTROSE 50% 50 ML SYRINGE IV PRN (15:45)
[2018-11-15] MEDS ORDERED: GLUCAGON FOR INJ 1 MG VIAL (J1610) SC PRN (15:45)
[2018-11-15] MEDS ORDERED: GLUCOSE 4 GM CHEW TABLET PO PRN (15:45)
[2018-11-15] MEDS: HumaLOG INSULIN (NovoLOG) PER UNIT SC SCH ×2 (17:50→22:10)
--- NOTE | 2018-11-15 20:25 | IPN ---
DATE: 11/15/2018 SUBJECTIVE: Patient seen and examined in the room. Patient complains about fatigue, especially during exertion. Denied any fevers or chills. OBJECTIVE: VITAL SIGNS: Temperature 98.6, pulse 78, respirations 20, blood pressure 121/64, pulse oximetry 93% in room air. oximetry in room air. GENERAL: No sign of acute distress. Alert and awake. HEENT: Normocephalic, atraumatic. Extraocular motor grossly intact. CARDIOVASCULAR: Positive S1, S2, regular rate. LUNGS: Positive wheezes. No inspiratory rhonchi. ABDOMEN: Soft, nontender. Bowel sounds present. EXTREMITIES: No edema. WBC 9.6, hemoglobin 10.8, hematocrit 34.9, platelet count is 211. Sodium is 144, potassium 3.5, chloride 110, carbon dioxide 26, BUN 21, creatinine 1, GFR is 56.2, fasting glucose 114, calcium 7.8. ASSESSMENT AND PLAN: 1. Community-acquired pneumonia, day 4 of Rocephin and azithromycin. 2. Hypertension. Blood pressure in the satisfactory range. Currently, patient is on a diuretic. 3. Dyslipidemia, on Lipitor. 4. Chronic obstructive pulmonary disease (COPD) exacerbation, improving on Rocephin and azithromycin. 5. Type 2 diabetes. On insulin 6. Obstructive sleep apnea (MICHELLE), on continuous positive airway pressure (CPAP). 7. History of rheumatoid arthritis. Continue outpatient followup. 8. Diastolic dysfunction. No sign of significant fluid overload. Continue to monitor. Currently on home diuretic regimen. 9. Gastroesophageal reflux disease, on Tums, on Prilosec. 10. Deep vein thrombosis (DVT) prophylaxis, on Lovenox. MTDD
[2018-11-15 22:00] VITALS: BP 121/61
[2018-11-15] MEDS: ALPRAZolam 0.25 MG TAB PO SCH (22:10)
[2018-11-15] MEDS: ATORVASTATIN 20 MG TAB PO SCH (22:10)
[2018-11-15] MEDS: BENZONATATE 100 MG CAP PO PRN (22:11)
[2018-11-15] MEDS: LATANOPROST 0.005% OPHTH SOLN 2.5 ML OU SCH (22:11)
[2018-11-16] MEDS: AZITHROMYCIN INJ 500 MG, VIAL MATE ADAPTER 1 EACH in D5W 250 ML IV SCH (00:30)
[2018-11-16] MEDS ORDERED: ANALGESIC BALM CRM 120 GM TOP PRN (01:00)
[2018-11-16] MEDS ORDERED: PERCOCET 5MG/325MG TAB PO ONE (01:00)
[2018-11-16] MEDS: cefTRIAXone SOD 2 GM in D5W MINI-BAG PLUS 50 ML IV SCH (03:07)
[2018-11-16 06:00] VITALS: BP 120/71
[2018-11-16 06:26] LABS: BASO % 0.2 % (0.0-1.0); EOS # 0.6 10^3/uL (0.0-0.50); EOS % 5.2 % (0.0-3.0); HEMOGLOBIN 10.5 g/dl (12.0-15.5); LYMPH # 1.8 10^3/uL (1.5-4.5); LYMPH % 17.2 % (24.0-44.0); MEAN CORPUSCULAR HEMOGLOBIN 25.1 pg (27.0-33.0); MEAN CORPUSCULAR HGB CONC 30.9 g/dl (32.0-36.5); MEAN CORPUSCULAR VOLUME 81.3 fl (80.0-96.0); MONO # 0.8 10^3/uL (0.0-0.8); MONO % 7.4 % (0.0-5.0); NEUTROPHILS # 7.4 10^3/uL (1.8-7.7); PLATELET COUNT, AUTOMATED 225 10^3/uL (150-450); RED BLOOD COUNT 4.18 10^6/uL (4.00-5.40); WHITE BLOOD COUNT 10.7 10^3/uL (4.0-10.0)
[2018-11-16 06:41] LABS: CALCIUM LEVEL 8.1 MG/DL (8.8-10.2); CREATININE FOR GFR 1.12 MG/DL (0.55-1.30); GLOMERULAR FILTRATION RATE 49.3 (>32); POTASSIUM SERUM 4.1 MEQ/L (3.5-5.1)
[2018-11-16] MEDS: OMEPRAZOLE 20 MG CAP PO SCH (08:25)
[2018-11-16] MEDS: ENOXAPARIN 40 MG/0.4 ML SYRINGE (J1650) SC SCH (08:25)
[2018-11-16] MEDS: CYANOCOBALAMIN 500 MCG TAB PO SCH (08:25)
[2018-11-16] MEDS: HumaLOG INSULIN (NovoLOG) PER UNIT SC SCH ×4 (08:26→20:34)
[2018-11-16] MEDS: MULTIVITAMINS/MINERALS THERAP 1 TAB PO SCH (08:26)
[2018-11-16] MEDS: ASPIRIN 81 MG ENTERIC TAB PO SCH (08:26)
[2018-11-16] MEDS: ACETAMINOPHEN TAB 650MG DOSE (2X325MG) PO PRN (08:52)
[2018-11-16] MEDS: CEFDINIR 300 MG CAP (OMNICEF) PO SCH ×2 (11:15→20:27)
[2018-11-16] MEDS: AZITHROMYCIN 250 MG TAB PO SCH (11:15)
[2018-11-16 14:00] VITALS: BP 134/74
--- NOTE | 2018-11-16 16:03 | IPNPDOC ---
Text Note Date of Service The patient was seen on 11/16/18. NOTE SUBJECTIVE: Patient is seen and examined in the room. Denied any fevers or chills. OBJECTIVE: VITAL SIGNS: Listed below. GENERAL: No sign of acute distress. Alert and awake. HEENT: Normocephalic, atraumatic. Extraocular motor grossly intact. CARDIOVASCULAR: Positive S1, S2, regular rate. LUNGS: Positive wheezes. No inspiratory rhonchi. ABDOMEN: Soft, nontender. Bowel sounds present. EXTREMITIES: No edema. LABORATORY: Listed below. ASSESSMENT AND PLAN: #. Community-acquired pneumonia - Day 5 of Rocephin and azithromycin. #. Hypertension. - Blood pressure in the satisfactory range. Currently, patient is on a diuretic. #. Dyslipidemia - on Lipitor. #. Type 2 diabetes. - On insulin. On consistent carbohydrate diet. #. Obstructive sleep apnea (MICHELLE), on continuous positive airway pressure (CPAP). #. History of rheumatoid arthritis. - Continue outpatient followup. #. Diastolic dysfunction. - No sign of significant fluid overload. Continue to monitor. Currently on home diuretic regimen. #. Gastroesophageal reflux disease - On Tums, on Prilosec. #. Deep vein thrombosis (DVT) prophylaxis, on Lovenox. VS,Fishbone, I+O VS, Fishbone, I+O Laboratory Tests 11/16/18 05:56 Red Blood Count 4.18, Mean Corpuscular Volume 81.3, Mean Corpuscular Hemoglobin 25.1 L, Mean Corpuscular Hemoglobin Concent 30.9 L, Red Cell Distribution Width 14.7 H, Neutrophils (%) (Auto) 69.0 H, Lymphocytes (%) (Auto) 17.2 L, Monocytes (%) (Auto) 7.4 H, Eosinophils (%) (Auto) 5.2 H, Basophils (%) (Auto) 0.2, Neutrophils # (Auto) 7.4, Lymphocytes # (Auto) 1.8, Monocytes # (Auto) 0.8, Eosinophils # (Auto) 0.6 H, Basophils # (Auto) 0.0, Calcium Level 8.1 L Vital Signs Date Time Temp Pulse Resp B/P (MAP) Pulse Ox O2 Delivery O2 Flow Rate FiO2 11/16/18 14:00 98.7 83 20 134/74 (94) 98 11/12/18 17:59 Room Air I&O- Last 24 Hours up to 6 AM 11/16/18 06:00 Intake Total 600 ml Output Total 300 ml Balance 300 ml ROMY GREGORY DO Nov 16, 2018 16:03
[2018-11-16] MEDS ORDERED: PERCOCET 5MG/325MG TAB PO SCH (19:00)
[2018-11-16] MEDS: ATORVASTATIN 20 MG TAB PO SCH (20:27)
[2018-11-16] MEDS: ALPRAZolam 0.25 MG TAB PO SCH (20:28)
[2018-11-16] MEDS: BENZONATATE 100 MG CAP PO PRN (20:28)
[2018-11-16] MEDS: LATANOPROST 0.005% OPHTH SOLN 2.5 ML OU SCH (20:28)
[2018-11-16 22:00] VITALS: BP 132/62
[2018-11-17 06:00] VITALS: BP 134/62
[2018-11-17 06:26] LABS: BASO % 0.3 % (0.0-1.0); EOS # 0.5 10^3/uL (0.0-0.50); EOS % 4.6 % (0.0-3.0); HEMATOCRIT 34.6 % (36.0-47.0); HEMOGLOBIN 10.8 g/dl (12.0-15.5); LYMPH # 1.5 10^3/uL (1.5-4.5); LYMPH % 14.1 % (24.0-44.0); MEAN CORPUSCULAR HEMOGLOBIN 25.6 pg (27.0-33.0); MEAN CORPUSCULAR HGB CONC 31.2 g/dl (32.0-36.5); MONO # 0.7 10^3/uL (0.0-0.8); MONO % 6.9 % (0.0-5.0); NEUTROPHILS # 7.7 10^3/uL (1.8-7.7); NEUTROPHILS % 73.1 % (36.0-66.0); PLATELET COUNT, AUTOMATED 216 10^3/uL (150-450); RED BLOOD COUNT 4.22 10^6/uL (4.00-5.40); WHITE BLOOD COUNT 10.6 10^3/uL (4.0-10.0)
[2018-11-17 06:53] LABS: CALCIUM LEVEL 8.4 MG/DL (8.8-10.2); CREATININE FOR GFR 1.06 MG/DL (0.55-1.30); GLOMERULAR FILTRATION RATE 52.6 (>32); POTASSIUM SERUM 3.7 MEQ/L (3.5-5.1)
[2018-11-17] MEDS: MULTIVITAMINS/MINERALS THERAP 1 TAB PO SCH (08:24)
[2018-11-17] MEDS: CYANOCOBALAMIN 500 MCG TAB PO SCH (08:24)
[2018-11-17] MEDS: ASPIRIN 81 MG ENTERIC TAB PO SCH (08:24)
[2018-11-17] MEDS: CEFDINIR 300 MG CAP (OMNICEF) PO SCH (08:25)
[2018-11-17] MEDS: OMEPRAZOLE 20 MG CAP PO SCH (08:25)
[2018-11-17] MEDS: CHLORTHALIDONE 12.5MG PER 1/2 TABLET PO SCH (08:25)
[2018-11-17] MEDS: AZITHROMYCIN 250 MG TAB PO SCH (08:25)
[2018-11-17] MEDS: ENOXAPARIN 40 MG/0.4 ML SYRINGE (J1650) SC SCH (08:26)
[2018-11-17] MEDS: HumaLOG INSULIN (NovoLOG) PER UNIT SC SCH (08:27)
--- NOTE | 2018-11-23 05:04 | DSES ---
DATE OF ADMISSION: 11/11/2018 DATE OF DISCHARGE: 11/17/2018 PRIMARY CARE PROVIDER: Phoebe Meza CONSULTANTS: None. DISCHARGE DIAGNOSES: 1. Community acquired pneumonia. 2. Hypertension. 3. Dyslipidemia. 4. Type 2 diabetes. 5. Obstructive sleep apnea (MICHELLE), on continuous positive airway pressure (CPAP). 6. History of rheumatoid arthritis. 7. Diastolic dysfunction. 8. Gastroesophageal reflux disease. HOSPITALIZATION COURSE: Patient is an 83-year-old female who presented to [facility] on 11/11/2018 with a complaint of cough with shortness of breath. Patient was admitted under hospitalist service for right lower lobe community acquired pneumonia. Culture obtained. Diagnostic workup initiated. Patient started on empiric antibiotics. Due to patient's deconditioning, patient showed improvement very slowly. Continued with physical therapy. On 11/17/2018, patient discharged from [facility] and patient is sent to [facility] for subacute rehabilitation. Patient was recommended to followup with primary care provider in 1-2 weeks. Prior to discharge, patient finished a course of antibiotics. VITAL SIGNS: On day of discharge show temperature is 98.8, pulse 64, respirations 18, blood pressure 134/62, pulse oximetry 95% in room air. LABORATORY DATA: WBC 10.6, hemoglobin 10.8, hematocrit 34.6, platelet count is 216. Sodium is 142, potassium 3.7, chloride 108, carbon dioxide 28, BUN 22, creatinine 1.06, GFR is 52.6, fasting glucose 124, calcium is 8.4. Influenza is negative. Microbiology: Blood cultures from 11/11/2018 show no growth after 5 days times two sets. IMAGING STUDIES: CT of the chest without contrast on 11/11/2018 demonstrated airspace infiltrate in the right lung base. Mild bronchiectasis right lower lobe. DISCHARGE MEDICATION: - Tylenol 650 mg by mouth every 4 hours as needed - Ventolin two puff inhalation every 4 hours as needed for shortness of breath - Xanax 0.25 mg by mouth nightly - aspirin 81 mg by mouth daily - atorvastatin 20 mg by mouth nightly - Tessalon Perles 200 mg by mouth every 8 hours as needed for cough - Tums 1000 mg by mouth three times a day as needed for - Evoxac 30 mg by mouth three times a day as needed for dry mouth - chlorthalidone 12.5 mg by mouth every 2 days - vitamin B12 at 1000 mcg by mouth daily - Colace 100 mg by mouth daily as needed for constipation - Breo one puff inhalation daily - milk of magnesia 30 mL by mouth daily as needed for constipation - multivitamin one tablet by mouth daily - nystatin topical twice a day as needed for rash - omeprazole 40 mg by mouth daily - Percocet one tablet by mouth every 8 hours as needed - Percocet one tablet by mouth nightly - Januvia 25 mg by mouth daily - vitamin D3 at 1000 units by mouth daily DISCHARGE INSTRUCTIONS: Discontinue line. Discharge patient to [facility] for continued rehabilitation. Activity per rehabilitation instructions. Low-salt diet as tolerated. Patient should followup with her primary care provider in 1-2 weeks. DISCHARGE TIME: Greater than 30 minutes. DISCHARGE CONDITION: Fair.
== END 2018-11-17 11:29 | DRG 194 ==
LOC: M ED 20:08 → M ED INP 23:57 → M MSPAV 11-12 18:05
PROVIDERS: ADMIT Hospitalist; ATTEND Internal Medicine
DX: J18.9 Pneumonia, unspecified organism (principal); I50.32 Chronic diastolic (congestive) heart failure; I11.0 Hypertensive heart disease with heart failure; E78.5 Hyperlipidemia, unspecified; G25.81 Restless legs syndrome; M06.9 Rheumatoid arthritis, unspecified; E11.9 Type 2 diabetes mellitus without complications; H40.9 Unspecified glaucoma; G47.33 Obstructive sleep apnea (adult) (pediatric); M10.9 Gout, unspecified; Z87.891 Personal history of nicotine dependence; Z90.49 Acquired absence of other specified parts of digestive tract; Z95.0 Presence of cardiac pacemaker; Z79.82 Long term (current) use of aspirin; Z79.899 Other long term (current) drug therapy; Z88.5 Allergy status to narcotic agent; Z88.1 Allergy status to other antibiotic agents; Z88.2 Allergy status to sulfonamides; Z88.8 Allergy status to other drugs, medicaments and biological substances; Z79.84 Long term (current) use of oral hypoglycemic drugs

== ENCOUNTER → 2018-11-22 | Outpatient (REF) ==
[~2018-11-22] MED LIST changes: +TESS100C PO; +XANA0.25 PO
[2018-11-22 10:05] LABS: HEMATOCRIT 41.6 % (36.0-47.0); HEMOGLOBIN 12.6 g/dl (12.0-15.5); MEAN CORPUSCULAR HEMOGLOBIN 24.8 pg (27.0-33.0); MEAN CORPUSCULAR HGB CONC 30.3 g/dl (32.0-36.5); MEAN CORPUSCULAR VOLUME 81.7 fl (80.0-96.0); PLATELET COUNT, AUTOMATED 255 10^3/uL (150-450); RED BLOOD COUNT 5.09 10^6/uL (4.00-5.40); WHITE BLOOD COUNT 11.5 10^3/uL (4.0-10.0)
[2018-11-22 10:37] LABS: CALCIUM LEVEL 9.2 MG/DL (8.8-10.2); CREATININE FOR GFR 1.14 MG/DL (0.55-1.30); GLOMERULAR FILTRATION RATE 48.3 (>32); POTASSIUM SERUM 4.4 MEQ/L (3.5-5.1)
== END ==
PROVIDERS: ATTEND Physician Assistant
DX: I10 Essential (primary) hypertension (principal)

== ENCOUNTER → 2018-11-25 | Outpatient (REF) | payer MEDICAID, MEDICARE, OTHER ==
[~2018-11-25] MED LIST changes: +ACE65ERTAB PO; +ADV250INH INH; -ASPI1TAB PO; -ASPI81CH32 PO; +ASPI81CH33 PO; +ASPI81TA26 PO; +LASI20TA3 PO; +MOM30SS PO; +POTA10TA17 PO
[2018-11-25 13:14] LABS: APPEARANCE, URINE CLEAR (CLEAR); BACTERIA, URINE AUTO NEGATIVE (NEGATIVE); BILIRUBIN, URINE AUTO NEGATIVE (NEGATIVE); BLOOD, URINE BLOOD NEGATIVE (NEGATIVE); COLOR, URINE YELLOW (YELLOW); GLUCOSE, URINE (UA) AUTO NEGATIVE (NEGATIVE); KETONE, URINE AUTO NEGATIVE (NEGATIVE); LEUKOCYTE ESTERASE, URINE AUTO 1+ (NEGATIVE); MUCUS, URINE SMALL (NEGATIVE); NITRITE, URINE AUTO NEGATIVE (NEGATIVE); PROTEIN, URINE AUTO NEGATIVE (NEGATIVE); RBC, URINE AUTO 1 /HPF (0-3); SPECIFIC GRAVITY URINE AUTO 1.025 (1.002-1.035); SQUAMOUS EPITHELIAL CELL UR AU 9 /HPF (0-6); UROBILINOGEN, URINE AUTO 0.2 mg/dL (0.0-2.0); WBC, URINE AUTO 6 /HPF (0-3)
== END ==
PROVIDERS: ATTEND Internal Medicine
DX: R41.82 Altered mental status, unspecified (principal); Z79.899 Other long term (current) drug therapy

== ENCOUNTER → 2018-12-05 | Outpatient (REF) ==
[~2018-12-05] MED LIST changes: -ACE65ERTAB PO; -ADV250INH INH; +ASPI1TAB PO; +ASPI81CH32 PO; -ASPI81CH33 PO; -ASPI81TA26 PO; -LASI20TA3 PO; -MOM30SS PO; -POTA10TA17 PO
== END ==
PROVIDERS: ATTEND Internal Medicine
DX: Z87.01 Personal history of pneumonia (recurrent) (principal)

== ENCOUNTER → 2018-12-06 | Outpatient (REF) | payer MEDICARE, MEDICAID, OTHER ==
[2018-12-06 08:58] LABS: HEMOGLOBIN 12.5 g/dl (12.0-15.5); MEAN CORPUSCULAR HEMOGLOBIN 24.8 pg (27.0-33.0); MEAN CORPUSCULAR HGB CONC 30.5 g/dl (32.0-36.5); MEAN CORPUSCULAR VOLUME 81.3 fl (80.0-96.0); PLATELET COUNT, AUTOMATED 244 10^3/uL (150-450); RED BLOOD COUNT 5.04 10^6/uL (4.00-5.40); WHITE BLOOD COUNT 7.6 10^3/uL (4.0-10.0)
[2018-12-06 09:31] LABS: CALCIUM LEVEL 9.4 MG/DL (8.8-10.2); CREATININE FOR GFR 1.16 MG/DL (0.55-1.30); GLOMERULAR FILTRATION RATE 47.4 (>32); POTASSIUM SERUM 4.2 MEQ/L (3.5-5.1)
== END ==
PROVIDERS: ATTEND Internal Medicine
DX: I10 Essential (primary) hypertension (principal)

== ENCOUNTER → 2018-12-09 | Outpatient (REF) | payer MEDICARE, MEDICAID ==
--- NOTE | 2018-12-09 14:39 | REP ---
Clinical: Cough and wheezing. Technique: PA and lateral. Comparison: 11/11/2018. Findings: Mediastinum and cardiac silhouette are stable. Trace bibasilar atelectasis and small pleural effusion best identified by lateral radiograph are suggested. No pneumothorax. Cardiac silhouette is upper limits of normal. Pacemaker in stable position. Skeletal structures intact. Impression: Findings suggest mild bibasilar atelectasis and small pleural effusions. Electronically Signed by Karl Chicas MD 12/09/2018 02:31 P
== END ==
PROVIDERS: ATTEND Internal Medicine
DX: J98.11 Atelectasis (principal); J90 Pleural effusion, not elsewhere classified

== ENCOUNTER 2018-12-19 16:29 | Inpatient (IN) | payer MEDICARE, MEDICAID ==
[~2018-12-19] VITALS: Ht 162.6 cm; Wt 84.2 kg
[~2018-12-19 16:29] MED LIST changes: -ASPI1TAB PO; -ASPI81CH32 PO; +ASPI81CH33 PO; +ASPI81TA26 PO
[2018-12-19] MEDS ORDERED: POTA10TA17 PO (17:22)
[2018-12-19] MEDS ORDERED: COLA100C5 PO (17:22)
[2018-12-19] MEDS ORDERED: MOM30SS PO (17:22)
[2018-12-19] MEDS ORDERED: ALBU83IN INH (17:22)
[2018-12-19] MEDS ORDERED: ADV250INH INH (17:22)
[2018-12-19] MEDS ORDERED: MAGNPOW TOP (17:22)
[2018-12-19] MEDS ORDERED: LASI20TA3 PO (17:22)
[2018-12-19] MEDS ORDERED: ACE65ERTAB PO (17:22)
--- NOTE | 2018-12-19 17:34 | REP ---
Right foot four views: Comparison is 11/10/2007. There is diffuse demineralization as an interval change. There is marked hallux valgus with lateral subluxation of the great toe proximal phalange as an interval change. Next the head of the second digit proximal phalange has been resected. No fracture or dislocation. 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 Left foot four views: There are orthopedic screws in the calcaneus and the tarsal ossicles. Diffuse demineralization as an interval change. There is hallux valgus. Osteoarthritis of the T T articulations. No fracture or dislocation. Electronically Signed by Joao Lemus MD 12/19/2018 05:26 P
[2018-12-19] MEDS ORDERED: IBUPROFEN 600 MG TAB PO ONE (18:15)
[2018-12-19 20:49] LABS: BASO # 0.1 10^3/uL (0.0-0.2); BASO % 0.4 % (0.0-1.0); EOS # 0.3 10^3/uL (0.0-0.50); EOS % 2.9 % (0.0-3.0); HEMATOCRIT 37.7 % (36.0-47.0); HEMOGLOBIN 11.7 g/dl (12.0-15.5); LYMPH # 2.1 10^3/uL (1.5-4.5); LYMPH % 17.9 % (24.0-44.0); MEAN CORPUSCULAR HEMOGLOBIN 25.5 pg (27.0-33.0); MEAN CORPUSCULAR VOLUME 82.1 fl (80.0-96.0); MONO # 0.9 10^3/uL (0.0-0.8); MONO % 7.6 % (0.0-5.0); NEUTROPHILS # 8.2 10^3/uL (1.8-7.7); NEUTROPHILS % 70.6 % (36.0-66.0); PLATELET COUNT, AUTOMATED 188 10^3/uL (150-450); RED BLOOD COUNT 4.59 10^6/uL (4.00-5.40); WHITE BLOOD COUNT 11.7 10^3/uL (4.0-10.0)
[2018-12-19] MEDS ORDERED: CALCIUM CARBONATE 500 MG CHEW U/D PO PRN (21:45)
[2018-12-19] MEDS ORDERED: MOM 30ML SUSPENSION UDC PO PRN (21:45)
[2018-12-19] MEDS ORDERED: DOCUSATE SODIUM 100 MG CAP PO PRN (21:45)
[2018-12-19] MEDS ORDERED: ALBUTEROL SULFATE 2.5 MG/0.5 ML INH NEB SOLN INH PRN (21:45)
[2018-12-19 21:54] LABS: CALCIUM LEVEL 8.6 MG/DL (8.8-10.2); CREATININE FOR GFR 1.48 MG/DL (0.55-1.30); GLOMERULAR FILTRATION RATE 35.8 (>32)
[2018-12-19] MEDS ORDERED: NORCO, ANEXSIA 5/325MG TABLET (HYDROcodone/ACETAMINOPHEN) PO PRN (23:30)
[2018-12-19] MEDS ORDERED: FUROSEMIDE 40 MG/4 ML VIAL (J1940) IV ONE (23:30)
[2018-12-19] MEDS: ATORVASTATIN 20 MG TAB PO SCH (23:39)
[2018-12-19] MEDS: PERCOCET 5MG/325MG TAB PO SCH (23:40)
[2018-12-20 00:10] VITALS: BP 140/63
--- NOTE | 2018-12-20 02:48 | HPEPDOC ---
General Date of Admission 12/19/18 Chief Complaint The patient is a 83-year-old female admitted with a reason for visit of Foot Injury. Source: Patient, [facility] records, Old records Exam Limitations: Dementia History of Present Illness 83 year old female with PMH of Systolic and Diastolic CHF with EF of 45% to 50%, Hypertension. Dyslipidemia. Type 2 diabetes. 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 The patient had just finished rehab for a month after a hospitalization for pneumonia in November and was being transferred to the Assisted living apartment when she had the accident. SHe had 2 gashes on the dorsum of both feet which were bandaged however she could not bear weight on her right foot when she tried to walk. She thinks she may have sprained it. So she was brought to the ED. In the ED she was given pain meds still could not bear weight and could not ambulate . She ambulated with a walker in the apartment and used motorized wheel chair when she goes out. She s being admitted due to inability to ambulate. Home Medications Scheduled Albuterol Sulf (Albuterol Sulfate) 2.5 Mg/3 Ml Nebu, 2.5 MG INH Q6H, (Reported) Aspirin (Aspirin EC) 81 Mg Tab, 81 MG PO DAILY, (Reported) Atorvastatin Calcium (Atorvastatin Calcium) 20 Mg Tab, 20 MG PO QHS, (Reported) Cyanocobalamin (Vitamin B-12) (Vitamin B-12) 1,000 Mcg Tab, 1,000 MCG PO DAILY, (Reported) Cyclosporine (Restasis Multidose) 0.05 % Emu, 1 DROP OU BID, (Reported) Docusate Sodium (Colace) 100 Mg Capsule, 100 MG PO Q2D, (Reported) Furosemide (Lasix) 20 Mg Tablet, 20 MG PO DAILY, (Reported) Latanoprost (Xalatan) 0.005 % Meryl, 1 DROP OU QHS, (Reported) Magnesium Sulfate (Epsom Salt) 100 Gm Crystals, 1 DOSE TOP BID, (Reported) FOR FOOT BATH Methyl Salicylate/Menthol (Bengay Greaseless Cream) 1 Cre Cre, 1 APLCT TOP TID, (Reported) APPLY TO BACK AND SHOULDERS Multivitamins (Thera M Plus Tablet) 1 Tab Tab, 1 TAB PO DAILY, (Reported) Omeprazole (Omeprazole) 40 Mg Cap, 40 MG PO DAILY, (Reported) Oxycodone HCl/Acetaminophen (Oxycodone-Acetaminophen 5-325) 1 Tab Tab, 1 TAB PO QHS, (Reported) Potassium Chloride (Potassium Chloride) 10 Meq Tab.er.prt, 10 MEQ PO DAILY, (Reported) Salicylic Acid (Compound W) 17 % Liq, 1 APLCT TOP BID, (Reported) APPLY TO AFFECTED AREA ON FOOT. Salmeterol/Fluticasone (Advair 250-50 Diskus) 1 Each Blst.w.dev, 1 PUFF INH BID, (Reported) Sitagliptin Phosphate (Januvia) 25 Mg Tab, 25 MG PO DAILY, (Reported) Vitamin D (Vitamin D3) 1,000 Units Tab, 1,000 UNITS PO DAILY, (Reported) Scheduled PRN Acetaminophen (Acetaminophen) 325 Mg Tab, 650 MG PO Q4H PRN for PAIN, (Reported) Acetaminophen (Acetaminophen ER) 650 Mg Tablet.er, 650 MG PO Q8H PRN for PAIN, (Reported) Albuterol Sulf (Albuterol Sulfate) 2.5 Mg/3 Ml Vial.neb, 2.5 MG INH QID PRN for SHORTNESS OF BREATH, (Reported) Albuterol Sulfate (Ventolin Hfa) 108 Mcg/Act Aer, 2 PUFFS INH Q4H PRN for SHORTNESS OF BREATH, (Reported) Calcium Carbonate (Tums) 500 Mg Chw, 1,000 MG PO TID PRN for DYSPEPSIA, (Reported) Cevimeline Hydrochloride Hemih (Evoxac) 30 Mg Cap, 30 MG PO TID PRN for DRY MOUTH, (Reported) Docusate Sodium (Colace) 100 Mg Cap, 100 MG PO DAILY PRN for CONSTIPATION, (Reported) Milk Of Magnesia (Milk of Magnesia) 2,400 Mg/10 Ml Oral.susp, 10 ML PO DAILY PRN for CONSTIPATION, (Reported) Allergies Coded Allergies: Sulfa (Sulfonamide Antibiotics) (Verified Allergy, Unknown, 12/19/18) codeine (Verified Allergy, Unknown, 12/19/18) doxycycline (Verified Allergy, Unknown, 12/19/18) streptomycin (Verified Allergy, Unknown, 12/19/18) Past Medical History Medical History Systolic and Diastolic CHF with EF of 45% to 50%, COPD, Hypertension. Dyslipidemia. Type 2 diabetes. 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, left foot surgery, right toe partial amputation, cholecystectomy, tonsillectomy, total hysterectomy with bilateral salpingo oophorectomy, thoracic vertebral fusion Social History * Smoker: Denies, quit greater than 1 year Alcohol: Denies Drugs: denies Review of Systems Constitutional: Denies: Chills, Fever, Night Sweats Eyes: Denies: Pain, Vision change ENT: Denies: Head Aches, Ear Pain, Dysphagia Skin: Denies: Rash, Lesions, Breakdown Pulmonary: Reports: Dyspnea, Cough Cardiovascular: Denies: Chest Pain, Palpitations Gastrointestinal: Denies: Nausea, Vomiting, Abdominal Pain, Diarrhea Genitourinary: Denies: Dysuria, Frequency, Incontinence, Retention Endocrine: Denies: Polydipsia, Polyphagia, Polyuria Musculoskeletal: Reports: Back Pain, Foot Pain Physical Examination General Exam: Positive: Alert, Cooperative, No Acute Distress Eye Exam: Positive: PERRLA, Conjunctiva & lids normal, EOMI; Negative: Sclera icteric ENT Exam: Positive: Atraumatic, Mucous membr. moist/pink, Pharynx Normal Neck Exam: Positive: Supple; Negative: JVD, thyromegaly Chest Exam: Positive: Clear to auscultation, Normal air movement Heart Exam: Positive: Rate Normal, Regular Rhythm, Normal S1, Normal S2; Negative: Murmurs, Rubs Abdomen Exam: Positive: Normal bowel sounds, Soft; Negative: Tenderness, Hepatospenomegaly Extremity Exam: Positive: Tenderness, Other (deformities in both the hands from RA); Negative: Clubbing, Cyanosis, Edema Skin Exam: Positive: Nl turgor and temperature, Other skin issue Psych Exam: Positive: Mood NL, Oriented x 3 Vital Signs Vital Signs Date Time Temp Pulse Resp B/P (MAP) Pulse Ox O2 Delivery O2 Flow Rate FiO2 12/19/18 17:34 97.9 65 17 118/62 (80) 96 Room Air Assessment/Plan 83 year old female with PMH of Systolic and Diastolic CHF with EF of 45% to 50%, Hypertension. Dyslipidemia. Type 2 diabetes. 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 The patient had just finished rehab for a month after a hospitalization for pneumonia in November and was being transferred to the Assisted living apartment when she had the accident. SHe had 2 gashes on the dorsum of both feet which were bandaged however she could not bear weight on her right foot when she tried to walk. She thinks she may have sprained it. So she was brought to the ED. In the ED she was given pain meds still could not bear weight and could not ambulate . She ambulated with a walker in the apartment and used motorized wheel chair when she goes out. She s being admitted due to inability to ambulate after injury to feet. Injury to feet and unable to bear weight and ambulate. continue dressing of the cuts on the dorsum of the feet will give norco PT eval DARIEN probably due to diuresis for CHF. will continue with lasix. 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 will get CXR as pateint appears slightly dyspniec during conversation will continue to monitor appears to be compensated continue lasix. COPD continue advair and albuterol Hypertension. not on any meds at present BP controlled Dyslipidemia. continue statin Type 2 diabetes. continue januvia Obesity with Obstructive sleep apnea (MICHELLE) on continuous positive airway pressure (CPAP) does not use the CPAP due to claustrophobia. tried several masks can some what tolerate the nasal one. History of rheumatoid arthritis, with deformities not on any meds Gastroesophageal reflux disease continue PPI Spinal stenosis/ scoliosis/ chronic thoracic compression continue noco at night norco prn RLS, Anxiety not on any meds. 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 glaucoma continue home meds. DVT prophylaxis has been ordered Plan / VTE VTE Prophylaxis Ordered?: Yes HEVER MATA MD Dec 19, 2018 20:31
[2018-12-20 06:00] VITALS: BP 115/58
--- NOTE | 2018-12-20 07:41 | REP ---
Portable chest, 11:35 p.m., single semi upright AP view: Cardiac size is enlarged, unchanged. There is a dual-chamber pacemaker, unchanged. The visualized lung hess are unremarkable. The jose and mediastinum are unchanged. There is a kyphoplasty in the thoracic spine. Skeletal structures otherwise unremarkable. Impression: No acute cardiopulmonary findings. Cardiomegaly, unchanged. Electronically Signed by Joao Lemus MD 12/20/2018 07:33 A
[2018-12-20] MEDS: ADVAIR HFA 115/21MCG INHALER INH SCH ×2 (07:51→19:51)
[2018-12-20] MEDS: ALBUTEROL SULFATE 2.5 MG/0.5 ML INH NEB SOLN INH SCH ×3 (07:51→19:51)
[2018-12-20] MEDS: SITagliptin 50 MG TAB (JANUVIA) PO SCH (08:20)
[2018-12-20] MEDS: OMEPRAZOLE 20 MG CAP PO SCH (08:23)
[2018-12-20] MEDS: ASPIRIN 81 MG ENTERIC TAB PO SCH (08:23)
[2018-12-20] MEDS: VITAMIN D 1,000 INTERNATIONAL UNITS TABLET PO SCH (08:23)
[2018-12-20] MEDS: MULTIVITAMINS/MINERALS THERAP 1 TAB PO SCH (08:24)
[2018-12-20] MEDS: POTASSIUM CHLORIDE 10 MEQ SR TABLET PO SCH (08:24)
[2018-12-20] MEDS: CYANOCOBALAMIN 500 MCG TAB PO SCH (08:24)
[2018-12-20] MEDS: FUROSEMIDE 20 MG/2 ML VIAL (J1940) IV SCH (08:26)
[2018-12-20] MEDS ORDERED: PREVNAR 13 VACCINE SYRINGE (CPT CODE:90670) IM ONE (09:00)
[2018-12-20] MEDS ORDERED: FUROSEMIDE 20 MG TAB PO SCH (09:00)
--- NOTE | 2018-12-20 13:01 | IPNPDOC ---
Date Seen The patient was seen on 12/20/18. Progress Note SUBJECTIVE: PT still c/o inability to bear weight on right foot>>left foot. Xray: no factures b/l Willing to work with physical therapy. Physical Examination General Exam: Positive: Alert, Cooperative, No Acute Distress Eye Exam: Positive: PERRLA, Conjunctiva & lids normal, EOMI; Negative: Sclera icteric ENT Exam: Positive: Atraumatic, Mucous membr. moist/pink, Pharynx Normal Neck Exam: Positive: Supple; Negative: JVD, thyromegaly Chest Exam: Positive: Clear to auscultation, Normal air movement Heart Exam: Positive: Rate Normal, Regular Rhythm, Normal S1, Normal S2; Negative: Murmurs, Rubs Abdomen Exam: Positive: Normal bowel sounds, Soft; Negative: Tenderness, Hepatospenomegaly Extremity Exam: Positive: Tenderness, Other (deformities in both the hands from RA); Negative: Clubbing, Cyanosis, Edema. b/l hallux valgus Skin Exam: Positive: Nl turgor and temperature, excoriated areas on dorsum of foot without erythema, induration, or tenderness. Psych Exam: Positive: Mood NL, Oriented x 3 laboratory data, imaging studies, microbiology: pls see below Foot Xray: There is diffuse demineralization as an interval change. There is marked hallux valgus with lateral subluxation of the great toe proximal phalange as an interval change. Next the head of the second digit proximal phalange has been resected. No fracture or dislocation. 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 Left foot four views: There are orthopedic screws in the calcaneus and the tarsal ossicles. Diffuse demineralization as an interval change. There is hallux valgus. Osteoarthritis of the T T articulations. No fracture or dislocation. 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 Dyslipidemia. Type 2 diabetes. 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 The patient had just finished rehab for a month after a hospitalization for pneumonia in November and was being transferred to the Assisted living apartment when she had the accident. SHe had 2 gashes on the dorsum of both feet which were bandaged however she could not bear weight on her right foot when she tried to walk. She thinks she may have sprained it. So she was brought to the ED. In the ED she was given pain meds still could not bear weight and could not ambulate . She ambulated with a walker in the apartment and used motorized wheel chair when she goes out. She s being admitted due to inability to ambulate. Injury to feet due to trauma as outpt Xray: no acute fractures b/l unable to bear weight and ambulate. continue dressing of the cuts on the dorsum of the feet PRN pain meds topical bactroban no signs of cellulitis PT eval DARIEN probably due to diuresis for CHF. will continue with lasix. 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 will get CXR as pateint appears slightly dyspniec during conversation will continue to monitor appears to be compensated continue lasix. COPD continue advair and albuterol Hypertension. not on any meds at present BP controlled Dyslipidemia. continue statin Type 2 diabetes. continue januvia Obesity with Obstructive sleep apnea (MICHELLE) on continuous positive airway pressure (CPAP) does not use the CPAP due to claustrophobia. tried several masks can some what tolerate the nasal one. History of rheumatoid arthritis, with deformities not on any meds Gastroesophageal reflux disease continue PPI Spinal stenosis/ scoliosis/ chronic thoracic compression continue noco at night norco prn RLS, Anxiety not on any meds. 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 glaucoma continue home meds. DVT prophylaxis has been ordered disposition: await PT evaluation. wheelchair and walks with walker at baseline. VS, I&O, 24H, Fishbone Vital Signs/I&O Vital Signs Date Time Temp Pulse Resp B/P (MAP) Pulse Ox O2 Delivery O2 Flow Rate FiO2 12/20/18 06:00 97.0 83 18 115/58 (77) 92 12/19/18 23:44 Room Air I&O- Last 24 Hours up to 6 AM 12/20/18 06:00 Intake Total 150 ml Output Total 0 ml Balance 150 ml Laboratory Data 24H LABS Laboratory Tests 2 12/19/18 20:39: Immature Granulocyte % (Auto) 0.6, White Blood Count 11.7H, Red Blood Count 4.59, Hemoglobin 11.7L, Hematocrit 37.7, Mean Corpuscular Volume 82.1, Mean Corpuscular Hemoglobin 25.5L, Mean Corpuscular Hemoglobin Concent 31.0L, Red Cell Distribution Width 16.5H, Platelet Count 188, Neutrophils (%) (Auto) 70.6H, Lymphocytes (%) (Auto) 17.9L, Monocytes (%) (Auto) 7.6H, Eosinophils (%) (Auto) 2.9, Basophils (%) (Auto) 0.4, Neutrophils # (Auto) 8.2H, Lymphocytes # (Auto) 2.1, Monocytes # (Auto) 0.9H, Eosinophils # (Auto) 0.3, Basophils # (Auto) 0.1, Nucleated Red Blood Cells % (auto) 0.0, Anion Gap 6L, Glomerular Filtration Rate 35.8, Blood Urea Nitrogen 34H, Creatinine 1.48H, Sodium Level 141, Potassium Level 5.0, Chloride Level 108H, Carbon Dioxide Level 27, Calcium Level 8.6L CBC/BMP Laboratory Tests 12/19/18 20:39 Red Blood Count 4.59, Mean Corpuscular Volume 82.1, Mean Corpuscular Hemoglobin 25.5 L, Mean Corpuscular Hemoglobin Concent 31.0 L, Red Cell Distribution Width 16.5 H, Neutrophils (%) (Auto) 70.6 H, Lymphocytes (%) (Auto) 17.9 L, Monocytes (%) (Auto) 7.6 H, Eosinophils (%) (Auto) 2.9, Basophils (%) (Auto) 0.4, Neutrophils # (Auto) 8.2 H, Lymphocytes # (Auto) 2.1, Monocytes # (Auto) 0.9 H, Eosinophils # (Auto) 0.3, Basophils # (Auto) 0.1, Calcium Level 8.6 L DARON PANTOJA MD Dec 20, 2018 12:56
[2018-12-20 13:24] LABS: BASO % 0.4 % (0.0-1.0); EOS # 0.3 10^3/uL (0.0-0.50); EOS % 2.8 % (0.0-3.0); HEMATOCRIT 40.1 % (36.0-47.0); HEMOGLOBIN 12.5 g/dl (12.0-15.5); LYMPH # 1.3 10^3/uL (1.5-4.5); LYMPH % 11.8 % (24.0-44.0); MEAN CORPUSCULAR HEMOGLOBIN 25.4 pg (27.0-33.0); MEAN CORPUSCULAR HGB CONC 31.2 g/dl (32.0-36.5); MEAN CORPUSCULAR VOLUME 81.5 fl (80.0-96.0); MONO # 0.7 10^3/uL (0.0-0.8); NEUTROPHILS # 8.2 10^3/uL (1.8-7.7); NEUTROPHILS % 77.3 % (36.0-66.0); PLATELET COUNT, AUTOMATED 216 10^3/uL (150-450); RED BLOOD COUNT 4.92 10^6/uL (4.00-5.40); WHITE BLOOD COUNT 10.6 10^3/uL (4.0-10.0)
[2018-12-20 13:54] LABS: CALCIUM LEVEL 9.2 MG/DL (8.8-10.2); CREATININE FOR GFR 1.53 MG/DL (0.55-1.30); GLOMERULAR FILTRATION RATE 34.4 (>32); POTASSIUM SERUM 3.7 MEQ/L (3.5-5.1)
[2018-12-20 14:00] VITALS: BP 108/55
[2018-12-20] MEDS: ATORVASTATIN 20 MG TAB PO SCH (20:28)
[2018-12-20] MEDS: LATANOPROST 0.005% OPHTH SOLN 2.5 ML OU SCH ×2 (20:31)
[2018-12-20] MEDS: PERCOCET 5MG/325MG TAB PO SCH (20:31)
[2018-12-20 22:00] VITALS: BP 116/57
[2018-12-21] MEDS: ALBUTEROL SULFATE 2.5 MG/0.5 ML INH NEB SOLN INH SCH ×4 (02:00→19:34)
[2018-12-21 06:00] VITALS: BP 146/70
[2018-12-21] MEDS: ADVAIR HFA 115/21MCG INHALER INH SCH ×2 (07:24→19:34)
[2018-12-21 09:00] VITALS: BP 136/86
[2018-12-21] MEDS: VITAMIN D 1,000 INTERNATIONAL UNITS TABLET PO SCH (09:15)
[2018-12-21] MEDS: SITagliptin 50 MG TAB (JANUVIA) PO SCH (09:15)
[2018-12-21] MEDS: ASPIRIN 81 MG ENTERIC TAB PO SCH (09:16)
[2018-12-21] MEDS: POTASSIUM CHLORIDE 10 MEQ SR TABLET PO SCH (09:16)
[2018-12-21] MEDS: CYANOCOBALAMIN 500 MCG TAB PO SCH (09:16)
[2018-12-21] MEDS: OMEPRAZOLE 20 MG CAP PO SCH (09:16)
[2018-12-21] MEDS: MULTIVITAMINS/MINERALS THERAP 1 TAB PO SCH (09:16)
[2018-12-21] MEDS: FUROSEMIDE 20 MG/2 ML VIAL (J1940) IV SCH (09:17)
[2018-12-21 14:00] VITALS: BP 118/54
--- NOTE | 2018-12-21 15:38 | IPNPDOC ---
Date Seen The patient was seen on 12/21/18. Progress Note SUBJECTIVE: Pt still c/o of difficulty walking, and anxious about hospital discharge. "I'm not ready."PT still c/o inability to bear weight on right foot>>left foot. Xray: no factures b/l Willing to work with physical therapy. Physical Examination General Exam: Positive: Alert, Cooperative, No Acute Distress Eye Exam: Positive: PERRLA, Conjunctiva & lids normal, EOMI; Negative: Sclera icteric ENT Exam: Positive: Atraumatic, Mucous membr. moist/pink, Pharynx Normal Neck Exam: Positive: Supple; Negative: JVD, thyromegaly Chest Exam: Positive: Clear to auscultation, Normal air movement Heart Exam: Positive: Rate Normal, Regular Rhythm, Normal S1, Normal S2; Negative: Murmurs, Rubs Abdomen Exam: Positive: Normal bowel sounds, Soft; Negative: Tenderness, Hepatospenomegaly Extremity Exam: Positive: Tenderness, Other (deformities in both the hands from RA); Negative: Clubbing, Cyanosis, Edema. b/l hallux valgus Skin Exam: Positive: Nl turgor and temperature, excoriated areas on dorsum of foot without erythema, induration, or tenderness. Psych Exam: Positive: Mood NL, Oriented x 3 laboratory data, imaging studies, microbiology: pls see below Foot Xray: There is diffuse demineralization as an interval change. There is marked hallux valgus with lateral subluxation of the great toe proximal phalange as an interval change. Next the head of the second digit proximal phalange has been resected. No fracture or dislocation. 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 Left foot four views: There are orthopedic screws in the calcaneus and the tarsal ossicles. Diffuse demineralization as an interval change. There is hallux valgus. Osteoarthritis of the T T articulations. No fracture or dislocation. 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 Dyslipidemia. Type 2 diabetes. 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 assisted living for injury to both her feet when she jammer her foot below a loaded cart while she was negotiating her electric wheel chair into the elevator. The patient had just finished rehab for a month after a hospitalization for pneumonia in November and was being transferred to the Assisted living apartment when she had the accident. SHe had 2 gashes on the dorsum of both feet which were bandaged however she could not bear weight on her right foot when she tried to walk. She thinks she may have sprained it. So she was brought to the ED. In the ED she was given pain meds still could not bear weight and could not ambulate . She ambulated with a walker in the apartment and used motorized wheel chair when she goes out. She s being admitted due to inability to ambulate. Injury to feet due to trauma as outpt Xray: no acute fractures b/l unable to bear weight and ambulate. continue dressing of the cuts on the dorsum of the feet PRN pain meds topical bactroban no signs of cellulitis PT eval DARIEN probably due to diuresis for CHF. will continue with lasix. 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 will get CXR as pateint appears slightly dyspniec during conversation will continue to monitor appears to be compensated continue lasix. COPD continue advair and albuterol Hypertension. not on any meds at present BP controlled Dyslipidemia. continue statin Type 2 diabetes. continue januvia Obesity with Obstructive sleep apnea (MICHELLE) on continuous positive airway pressure (CPAP) does not use the CPAP due to claustrophobia. tried several masks can some what tolerate the nasal one. History of rheumatoid arthritis, with deformities not on any meds Gastroesophageal reflux disease continue PPI Spinal stenosis/ scoliosis/ chronic thoracic compression continue noco at night norco prn RLS, Anxiety not on any meds. 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 glaucoma continue home meds. DVT prophylaxis has been ordered disposition: await PT evaluation. wheelchair and walks with walker at baseline. VS, I&O, 24H, Fishbone Vital Signs/I&O Vital Signs Date Time Temp Pulse Resp B/P (MAP) Pulse Ox O2 Delivery O2 Flow Rate FiO2 12/21/18 14:00 98.0 93 18 118/54 (75) 94 12/19/18 23:44 Room Air I&O- Last 24 Hours up to 6 AM 12/21/18 06:00 Intake Total 2374 ml Output Total 0 ml Balance 2374 ml DARON PANTOJA MD Dec 21, 2018 15:38
[2018-12-21] MEDS: ATORVASTATIN 20 MG TAB PO SCH (20:29)
[2018-12-21] MEDS: PERCOCET 5MG/325MG TAB PO SCH (20:31)
[2018-12-21] MEDS: LATANOPROST 0.005% OPHTH SOLN 2.5 ML OU SCH (20:31)
[2018-12-21 22:00] VITALS: BP 146/71
[2018-12-22] MEDS: ALBUTEROL SULFATE 2.5 MG/0.5 ML INH NEB SOLN INH SCH ×3 (01:24→13:34)
[2018-12-22 06:00] VITALS: BP 126/61
[2018-12-22] MEDS: ADVAIR HFA 115/21MCG INHALER INH SCH (07:52)
[2018-12-22] MEDS: SITagliptin 50 MG TAB (JANUVIA) PO SCH (08:37)
[2018-12-22] MEDS: CYANOCOBALAMIN 500 MCG TAB PO SCH (08:37)
[2018-12-22] MEDS: POTASSIUM CHLORIDE 10 MEQ SR TABLET PO SCH (08:38)
[2018-12-22] MEDS: OMEPRAZOLE 20 MG CAP PO SCH (08:38)
[2018-12-22] MEDS: MULTIVITAMINS/MINERALS THERAP 1 TAB PO SCH (08:38)
[2018-12-22] MEDS: VITAMIN D 1,000 INTERNATIONAL UNITS TABLET PO SCH (08:38)
[2018-12-22] MEDS: FUROSEMIDE 20 MG/2 ML VIAL (J1940) IV SCH (08:38)
[2018-12-22] MEDS: ASPIRIN 81 MG ENTERIC TAB PO SCH (08:38)
--- NOTE | 2018-12-22 11:19 | IPNPDOC ---
Date Seen The patient was seen on 12/22/18. Progress Note Awaiting ortho eval and us of rt le to r/o dvt due to persistent c/o pain and swelling. pt stable for dc to [facility] rehab. Physical Examination vitals: pls see below General Exam: Positive: Alert, Cooperative, No Acute Distress Eye Exam: Positive: PERRLA, Conjunctiva & lids normal, EOMI; Negative: Sclera icteric ENT Exam: Positive: Atraumatic, Mucous membr. moist/pink, Pharynx Normal Neck Exam: Positive: Supple; Negative: JVD, thyromegaly Chest Exam: Positive: Clear to auscultation, Normal air movement Heart Exam: Positive: Rate Normal, Regular Rhythm, Normal S1, Normal S2; Negative: Murmurs, Rubs Abdomen Exam: Positive: Normal bowel sounds, Soft; Negative: Tenderness, Hepatospenomegaly Extremity Exam: Positive: Tenderness, Other (deformities in both the hands from RA); Negative: Clubbing, Cyanosis, Edema. b/l hallux valgus Skin Exam: Positive: Nl turgor and temperature, excoriated areas on dorsum of foot without erythema, induration, or tenderness. Psych Exam: Positive: Mood NL, Oriented x 3 laboratory data, imaging studies, microbiology: pls see below Foot Xray: There is diffuse demineralization as an interval change. There is marked hallux valgus with lateral subluxation of the great toe proximal phalange as an interval change. Next the head of the second digit proximal phalange has been resected. No fracture or dislocation. 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 Left foot four views: There are orthopedic screws in the calcaneus and the tarsal ossicles. Diffuse demineralization as an interval change. There is hallux valgus. Osteoarthritis of the T T articulations. No fracture or dislocation. 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 Dyslipidemia. Type 2 diabetes. 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 The patient had just finished rehab for a month after a hospitalization for pneumonia in November and was being transferred to the Assisted living apartment when she had the accident. SHe had 2 gashes on the dorsum of both feet which were bandaged however she could not bear weight on her right foot when she tried to walk. She thinks she may have sprained it. So she was brought to the ED. In the ED she was given pain meds still could not bear weight and could not ambulate . She ambulated with a walker in the apartment and used motorized wheel chair when she goes out. She s being admitted due to inability to ambulate. Injury to feet due to trauma as outpt Xray: no acute fractures b/l unable to bear weight and ambulate. continue dressing of the cuts on the dorsum of the feet PRN pain meds topical bactroban no signs of cellulitis PT eval ortho consulted for activity recommendations rt LE doppler to r/o dvt DARIEN probably due to diuresis for CHF. will continue with lasix. 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 will get CXR as pateint appears slightly dyspniec during conversation will continue to monitor appears to be compensated continue lasix. COPD continue advair and albuterol Hypertension. not on any meds at present BP controlled Dyslipidemia. continue statin Type 2 diabetes. continue januvia Obesity with Obstructive sleep apnea (MICHELLE) on continuous positive airway pressure (CPAP) does not use the CPAP due to claustrophobia. tried several masks can some what tolerate the nasal one. History of rheumatoid arthritis, with deformities not on any meds Gastroesophageal reflux disease continue PPI Spinal stenosis/ scoliosis/ chronic thoracic compression continue noco at night norco prn RLS, Anxiety not on any meds. 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 glaucoma continue home meds. DVT prophylaxis has been ordered disposition: dc after ortho sees pt and after LE us rt leg. VS, I&O, 24H, Fishbone Vital Signs/I&O Vital Signs Date Time Temp Pulse Resp B/P (MAP) Pulse Ox O2 Delivery O2 Flow Rate FiO2 12/22/18 06:00 97.7 80 18 126/61 (82) 94 12/19/18 23:44 Room Air I&O- Last 24 Hours up to 6 AM 12/22/18 06:00 Intake Total 1236 ml Output Total 0 ml Balance 1236 ml DARON PANTOJA MD Dec 22, 2018 11:19
--- NOTE | 2018-12-22 12:04 | REP ---
Duplex extremity venous ultrasound: Right lower extremity. History: Right leg swelling. Rule out DVT. Findings: The deep veins are anechoic and fully compressible from the groin to the popliteal fossa in the right lower extremity. Color flow imaging is homogeneous. Spectral Doppler interrogation demonstrates intact respiratory variation in flow and normal manual augmentation of flow. There is no evidence of deep vein thrombosis. Impression: Negative right lower extremity duplex venous ultrasound. No evidence of deep vein thrombosis. Electronically Signed by James Rangel MD 12/22/2018 11:56 A
--- NOTE | 2018-12-22 13:55 | REP ---
CT of the right and left feet: The study is performed for right foot trauma. Comparison is the plain film study dated 12/19/2018. Axial images are acquired helical scanning and sagittal and coronal images are reconstructed. Right foot: There is diffuse demineralization. There is a nondisplaced fracture of the medial malleolus. No other fracture is identified. There is no dislocation. There is marked hallux valgus. The great toe is angled laterally and the base of the great toe proximal phalange is along the lateral aspect of the great toe metatarsal head. 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 There is diffuse soft tissue edema. Impression: Nondisplaced fracture of the medial malleolus. T MT osteoarthritis. Diffuse demineralization. Diffuse soft tissue edema. Left foot: There is diffuse demineralization. There is moderate hallux valgus. There are orthopedic screws in the calcaneus. There is an orthopedic screw across the first cuneiform - navicular articulation. There is osteoarthritis at the TM T articulations. There is no fracture or dislocation. Electronically Signed by Joao Lemus MD 12/22/2018 01:46 P
[2018-12-22] MEDS ORDERED: MOM 30ML SUSPENSION UDC PO ONE (14:00)
--- NOTE | 2019-01-17 14:17 | DS.PDOC ---
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 Dyslipidemia. Type 2 diabetes. 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 Dyslipidemia. Type 2 diabetes. 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 assisted living for injury to both her feet when she jammer her foot below a loaded cart while she was negotiating her electric wheel chair into the elevator. The patient had just finished rehab for a month after a hospitalization for pneumonia in November and was being transferred to the Assisted living apartment when she had the accident. SHe had 2 gashes on the dorsum of both feet which were bandaged however she could not bear weight on her right foot when she tried to walk. She thinks she may have sprained it. So she was brought to the ED. In the ED she was given pain meds s till could not bear weight and could not ambulate . She ambulated with a walker in the apartment and used motorized wheel chair when she goes out. She s being admitted due to inability to ambulate. HOSPITAL COURSE Injury to feet due to trauma as outpt ADMISSION Xray: no acute fractures b/l unable to bear weight and ambulate. continue dressing of the cuts on the dorsum of the feet PRN pain meds topical bactroban no signs of cellulitis PT eval ortho consulted for activity recommendations rt LE doppler to r/o dvt DARIEN probably due to diuresis for CHF. will continue with lasix. 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 will get CXR as pateint appears slightly dyspniec during conversation will continue to monitor appears to be compensated continue lasix. COPD continue advair and albuterol Hypertension. not on any meds at present BP controlled Dyslipidemia. continue statin Type 2 diabetes. continue januvia Obesity with Obstructive sleep apnea (MICHELLE) on continuous positive airway pressure (CPAP) does not use the CPAP due to claustrophobia. tried several masks can some what tolerate the nasal one. History of rheumatoid arthritis, with deformities not on any meds Gastroesophageal reflux disease continue PPI Spinal stenosis/ scoliosis/ chronic thoracic compression continue noco at night norco prn RLS, Anxiety not on any meds. 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 glaucoma continue home meds. DVT prophylaxis has been ordered Physical Examination vitals: pls see below General Exam: Positive: Alert, Cooperative, No Acute Distress Eye Exam: Positive: PERRLA, Conjunctiva & lids normal, EOMI; Negative: Sclera icteric ENT Exam: Positive: Atraumatic, Mucous membr. moist/pink, Pharynx Normal Neck Exam: Positive: Supple; Negative: JVD, thyromegaly Chest Exam: Positive: Clear to auscultation, Normal air movement Heart Exam: Positive: Rate Normal, Regular Rhythm, Normal S1, Normal S2; Negative: Murmurs, Rubs Abdomen Exam: Positive: Normal bowel sounds, Soft; Negative: Tenderness, Hepatospenomegaly Extremity Exam: Positive: Tenderness, Other (deformities in both the hands from RA); Negative: Clubbing, Cyanosis, Edema. b/l hallux valgus Skin Exam: Positive: Nl turgor and temperature, excoriated areas on dorsum of foot without erythema, induration, or tenderness. Psych Exam: Positive: Mood NL, Oriented x 3 laboratory data, imaging studies, microbiology: pls see below Right foot: There is diffuse demineralization. There is a nondisplaced fracture of the medial malleolus. No other fracture is identified. There is no dislocation. There is marked hallux valgus. The great toe is angled laterally and the base of the great toe proximal phalange is along the lateral aspect of the great toe metatarsal head. 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 There is diffuse soft tissue edema. Impression: Nondisplaced fracture of the medial malleolus. T MT osteoarthritis. Diffuse demineralization. Diffuse soft tissue edema. Left foot: There is diffuse demineralization. There is moderate hallux valgus. There are orthopedic screws in the calcaneus. There is an orthopedic screw across the first cuneiform - navicular articulation. There is osteoarthritis at the TM T articulations. There is no fracture or dislocation. Electronically Signed by Joao Lemus MD 12/22/2018 01:46 P Foot Xray: There is diffuse demineralization as an interval change. There is marked hallux valgus with lateral subluxation of the great toe proximal phalange as an interval change. Next the head of the second digit proximal phalange has been resected. No fracture or dislocation. 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 Left foot four views: There are orthopedic screws in the calcaneus and the tarsal ossicles. Diffuse demineralization as an interval change. There is hallux valgus. Osteoarthritis of the T T articulations. No fracture or dislocation. Electronically Signed by Joao Lemus MD 12/19/2018 05:26 P TIME SPENT ON DISCHARGE: 30 MIN Discharge Medications Scheduled Albuterol Sulf (Albuterol Sulfate) 2.5 Mg/3 Ml Nebu, 2.5 MG INH Q6H, (Reported) Aspirin (Aspirin EC) 81 Mg Tab, 81 MG PO DAILY, (Reported) Atorvastatin Calcium (Atorvastatin Calcium) 20 Mg Tab, 20 MG PO QHS, (Reported) Cyanocobalamin (Vitamin B-12) (Vitamin B-12) 1,000 Mcg Tab, 1,000 MCG PO DAILY, (Reported) Cyclosporine (Restasis Multidose) 0.05 % Emu, 1 DROP OU BID, (Reported) Docusate Sodium (Colace) 100 Mg Capsule, 100 MG PO Q2D, (Reported) Furosemide (Lasix) 20 Mg Tablet, 20 MG PO DAILY, (Reported) Latanoprost (Xalatan) 0.005 % Meryl, 1 DROP OU QHS, (Reported) Magnesium Sulfate (Epsom Salt) 100 Gm Crystals, 1 DOSE TOP BID, (Reported) FOR FOOT BATH Methyl Salicylate/Menthol (Bengay Greaseless Cream) 1 Cre Cre, 1 APLCT TOP TID, (Reported) APPLY TO BACK AND SHOULDERS Multivitamins (Thera M Plus Tablet) 1 Tab Tab, 1 TAB PO DAILY, (Reported) Omeprazole (Omeprazole) 40 Mg Cap, 40 MG PO DAILY, (Reported) Oxycodone HCl/Acetaminophen (Oxycodone-Acetaminophen 5-325) 1 Tab Tab, 1 TAB PO QHS, (Reported) Potassium Chloride (Potassium Chloride) 10 Meq Tab.er.prt, 10 MEQ PO DAILY, (Reported) Salicylic Acid (Compound W) 17 % Liq, 1 APLCT TOP BID, (Reported) APPLY TO AFFECTED AREA ON FOOT. Salmeterol/Fluticasone (Advair 250-50 Diskus) 1 Each Blst.w.dev, 1 PUFF INH BID, (Reported) Sitagliptin Phosphate (Januvia) 25 Mg Tab, 25 MG PO DAILY, (Reported) Vitamin D (Vitamin D3) 1,000 Units Tab, 1,000 UNITS PO DAILY, (Reported) Scheduled PRN Acetaminophen (Acetaminophen) 325 Mg Tab, 650 MG PO Q4H PRN for PAIN, (Reported) Acetaminophen (Acetaminophen ER) 650 Mg Tablet.er, 650 MG PO Q8H PRN for PAIN, (Reported) Albuterol Sulf (Albuterol Sulfate) 2.5 Mg/3 Ml Vial.neb, 2.5 MG INH QID PRN for SHORTNESS OF BREATH, (Reported) Albuterol Sulfate (Ventolin Hfa) 108 Mcg/Act Aer, 2 PUFFS INH Q4H PRN for SHORTNESS OF BREATH, (Reported) Calcium Carbonate (Tums) 500 Mg Chw, 1,000 MG PO TID PRN for DYSPEPSIA, (Reported) Cevimeline Hydrochloride Hemih (Evoxac) 30 Mg Cap, 30 MG PO TID PRN for DRY MOUTH, (Reported) Docusate Sodium (Colace) 100 Mg Cap, 100 MG PO DAILY PRN for CONSTIPATION, (Reported) Milk Of Magnesia (Milk of Magnesia) 2,400 Mg/10 Ml Oral.susp, 10 ML PO DAILY PRN for CONSTIPATION, (Reported) Allergies Coded Allergies: Sulfa (Sulfonamide Antibiotics) (Verified Allergy, Unknown, 12/19/18) codeine (Verified Allergy, Unknown, 12/19/18) doxycycline (Verified Allergy, Unknown, 12/19/18) streptomycin (Verified Allergy, Unknown, 12/19/18) DARON PANTOJA MD January 17, 2019 14:16
== END 2018-12-22 14:00 | DRG 605 ==
LOC: M ED 16:29 → EDBD 16:29 → M ED INP 21:25 → M MSPAV 23:58
PROVIDERS: ADMIT Internal Medicine Nephrology; ATTEND General Practice
DX: S91.311A Laceration without foreign body, right foot, initial encounter (principal); I50.42 Chronic combined systolic (congestive) and diastolic (congestive) heart failure; N17.9 Acute kidney failure, unspecified; S91.312A Laceration without foreign body, left foot, initial encounter; S82.54XA Nondisplaced fracture of medial malleolus of right tibia, initial encounter for closed fracture; E78.5 Hyperlipidemia, unspecified; E11.9 Type 2 diabetes mellitus without complications; G47.33 Obstructive sleep apnea (adult) (pediatric); K21.9 Gastro-esophageal reflux disease without esophagitis; Z66 Do not resuscitate; E66.9 Obesity, unspecified; G25.81 Restless legs syndrome; F41.9 Anxiety disorder, unspecified; G30.9 Alzheimer's disease, unspecified; F02.80 Dementia in other diseases classified elsewhere, unspecified severity, without behavioral disturbance, psychotic disturbance, mood disturbance, and anxiety; H40.9 Unspecified glaucoma; M10.9 Gout, unspecified; L40.9 Psoriasis, unspecified; W23.0XXA Caught, crushed, jammed, or pinched between moving objects, initial encounter; Y92.098 Other place in other non-institutional residence as the place of occurrence of the external cause; Z79.82 Long term (current) use of aspirin; Z79.899 Other long term (current) drug therapy; Z88.2 Allergy status to sulfonamides; Z88.1 Allergy status to other antibiotic agents; Z88.5 Allergy status to narcotic agent; Z88.8 Allergy status to other drugs, medicaments and biological substances; J44.9 Chronic obstructive pulmonary disease, unspecified; Z95.0 Presence of cardiac pacemaker; Z90.49 Acquired absence of other specified parts of digestive tract; Z98.1 Arthrodesis status; Z68.31 Body mass index [BMI] 31.0-31.9, adult

== ENCOUNTER → 2018-12-27 | Outpatient (REF) | payer MEDICARE, MEDICAID, OTHER ==
[~2018-12-27] MED LIST changes: +ACE65ERTAB PO; +ADV250INH INH; +LASI20TA3 PO; +MOM30SS PO; +POTA10TA17 PO
[2018-12-27 09:19] LABS: HEMATOCRIT 38.7 % (36.0-47.0); HEMOGLOBIN 11.5 g/dl (12.0-15.5); MEAN CORPUSCULAR HEMOGLOBIN 24.5 pg (27.0-33.0); MEAN CORPUSCULAR HGB CONC 29.7 g/dl (32.0-36.5); MEAN CORPUSCULAR VOLUME 82.5 fl (80.0-96.0); PLATELET COUNT, AUTOMATED 207 10^3/uL (150-450); RED BLOOD COUNT 4.69 10^6/uL (4.00-5.40); WHITE BLOOD COUNT 8.7 10^3/uL (4.0-10.0)
[2018-12-27 09:31] LABS: CALCIUM LEVEL 9.6 MG/DL (8.8-10.2); CREATININE FOR GFR 1.05 MG/DL (0.55-1.30); GLOMERULAR FILTRATION RATE 53.2 (>32); POTASSIUM SERUM 4.1 MEQ/L (3.5-5.1)
== END ==
PROVIDERS: ATTEND Internal Medicine
DX: I50.9 Heart failure, unspecified (principal)

== ENCOUNTER → 2019-01-03 | Outpatient (REF) | payer MEDICAID, MEDICARE, OTHER ==
[2019-01-03 08:46] LABS: HEMATOCRIT 36.4 % (36.0-47.0); MEAN CORPUSCULAR HEMOGLOBIN 24.8 pg (27.0-33.0); MEAN CORPUSCULAR HGB CONC 30.2 g/dl (32.0-36.5); MEAN CORPUSCULAR VOLUME 82.2 fl (80.0-96.0); PLATELET COUNT, AUTOMATED 221 10^3/uL (150-450); RED BLOOD COUNT 4.43 10^6/uL (4.00-5.40); WHITE BLOOD COUNT 6.7 10^3/uL (4.0-10.0)
[2019-01-03 09:01] LABS: CALCIUM LEVEL 8.7 MG/DL (8.8-10.2); CREATININE FOR GFR 1.17 MG/DL (0.55-1.30); GLOMERULAR FILTRATION RATE 46.9 (>32); POTASSIUM SERUM 4.4 MEQ/L (3.5-5.1)
== END ==
PROVIDERS: ATTEND Internal Medicine
DX: I50.9 Heart failure, unspecified (principal)

== ENCOUNTER → 2019-01-05 | Outpatient (REF) | LOC: M CARPUL 09:10 → EDSTATUS 10:00 | PROVIDERS: ATTEND Nurse Practitioner Adult Health | DX: R06.02 Shortness of breath (principal) ==

== ENCOUNTER → 2019-01-10 | Outpatient (REF) | payer MEDICARE, MEDICAID, OTHER ==
[2019-01-10 10:44] LABS: CREATININE FOR GFR 1.24 MG/DL (0.55-1.30); GLOMERULAR FILTRATION RATE 43.9 (>32); POTASSIUM SERUM 4.2 MEQ/L (3.5-5.1)
[2019-01-10 10:48] LABS: HEMATOCRIT 38.6 % (36.0-47.0); HEMOGLOBIN 11.9 g/dl (12.0-15.5); MEAN CORPUSCULAR HEMOGLOBIN 25.1 pg (27.0-33.0); MEAN CORPUSCULAR HGB CONC 30.8 g/dl (32.0-36.5); MEAN CORPUSCULAR VOLUME 81.3 fl (80.0-96.0); PLATELET COUNT, AUTOMATED 242 10^3/uL (150-450); RED BLOOD COUNT 4.75 10^6/uL (4.00-5.40); WHITE BLOOD COUNT 8.7 10^3/uL (4.0-10.0)
== END ==
PROVIDERS: ATTEND Internal Medicine
DX: I50.9 Heart failure, unspecified (principal)

== ENCOUNTER → 2019-01-17 | Outpatient (REF) | payer MEDICAID, MEDICARE, OTHER ==
--- NOTE | 2019-01-17 14:19 | PFTRPT ---
Height: 62.00 Inches Weight: 187.00 Lbs BSA: 1.86 Diagnosis: R06.02 DATE OF PROCEDURE: 01/17/2019 ORDERED BY: Deysi Madera Spirometry: Pre and post bronchodilator study of excellent technical quality. Forced vital capacity reduced. FEV1 in proportion. Obstructive index is, therefore, normal. Flow Volume Loop: Expiratory limb of the flow volume loop does suggest significant flow rate limitation. Significant obstructive defect is suspected. Very favorable bronchodilator response is also noted. Lung Volumes: Total lung capacity normal. Residual volume consistent with significant air trapping. Diffusing Capacity: Diffusing capacity, although reduced, is appropriate for alveolar volume. Hemoglobin: Hemoglobin acceptable at 12.7. Airway Mechanics: Airway resistance markedly elevated with a concomitant decrease in airway conductance. IMPRESSION: Significant obstructive ventilatory impairment with underlying air trapping. Please correlate clinically. MTDD
== END ==
LOC: M CARPUL 13:24 → EDSTATUS 14:00
PROVIDERS: ATTEND Nurse Practitioner Adult Health
DX: R06.02 Shortness of breath (principal)

== ENCOUNTER → 2019-02-07 | Outpatient (REF) | payer MEDICARE, MEDICAID ==
[2019-02-07 09:23] LABS: HEMATOCRIT 40.5 % (36.0-47.0); HEMOGLOBIN 12.4 g/dl (12.0-15.5); MEAN CORPUSCULAR HEMOGLOBIN 25.2 pg (27.0-33.0); MEAN CORPUSCULAR HGB CONC 30.6 g/dl (32.0-36.5); MEAN CORPUSCULAR VOLUME 82.3 fl (80.0-96.0); PLATELET COUNT, AUTOMATED 237 10^3/uL (150-450); RED BLOOD COUNT 4.92 10^6/uL (4.00-5.40); WHITE BLOOD COUNT 10.1 10^3/uL (4.0-10.0)
[2019-02-07 10:33] LABS: CALCIUM LEVEL 8.9 MG/DL (8.8-10.2); CREATININE FOR GFR 1.21 MG/DL (0.55-1.30); GLOMERULAR FILTRATION RATE 45.1 (>32); POTASSIUM SERUM 4.5 MEQ/L (3.5-5.1)
== END ==
PROVIDERS: ATTEND Internal Medicine
DX: I50.9 Heart failure, unspecified (principal)

== ENCOUNTER → 2019-03-07 | Outpatient (REF) | payer MEDICARE, MEDICAID ==
[2019-03-07 09:39] LABS: HEMATOCRIT 37.8 % (36.0-47.0); HEMOGLOBIN 11.4 g/dl (12.0-15.5); MEAN CORPUSCULAR HEMOGLOBIN 24.6 pg (27.0-33.0); MEAN CORPUSCULAR HGB CONC 30.2 g/dl (32.0-36.5); MEAN CORPUSCULAR VOLUME 81.5 fl (80.0-96.0); PLATELET COUNT, AUTOMATED 217 10^3/uL (150-450); RED BLOOD COUNT 4.64 10^6/uL (4.00-5.40); WHITE BLOOD COUNT 7.7 10^3/uL (4.0-10.0)
[2019-03-07 10:29] LABS: CALCIUM LEVEL 9.2 MG/DL (8.8-10.2); CREATININE FOR GFR 1.29 MG/DL (0.55-1.30); GLOMERULAR FILTRATION RATE 41.8 (>32); POTASSIUM SERUM 4.2 MEQ/L (3.5-5.1)
== END ==
PROVIDERS: ATTEND Internal Medicine
DX: I50.9 Heart failure, unspecified (principal)

== ENCOUNTER → 2019-03-29 | Outpatient (REF) | payer MEDICARE, MEDICAID ==
[~2019-03-29] MED LIST changes: +CYAN100049 PO; -VITA10002 PO
[2019-03-29 09:43] LABS: CALCIUM LEVEL 8.9 MG/DL (8.8-10.2); CREATININE FOR GFR 1.29 MG/DL (0.55-1.30); GLOMERULAR FILTRATION RATE 41.8 (>32)
== END ==
PROVIDERS: ATTEND Internal Medicine
DX: I50.9 Heart failure, unspecified (principal)

== ENCOUNTER → 2019-04-05 | Outpatient (REF) | payer MEDICARE, MEDICAID ==
[2019-04-05 12:07] LABS: CALCIUM LEVEL 9.3 MG/DL (8.8-10.2); CREATININE FOR GFR 1.46 MG/DL (0.55-1.30); GLOMERULAR FILTRATION RATE 36.2 (>32); POTASSIUM SERUM 3.7 MEQ/L (3.5-5.1)
== END ==
PROVIDERS: ATTEND Internal Medicine
DX: I50.9 Heart failure, unspecified (principal)

== ENCOUNTER → 2019-04-11 | Outpatient (REF) | payer MEDICARE, MEDICAID | PROVIDERS: ATTEND Internal Medicine | DX: I50.9 Heart failure, unspecified (principal) ==

== ENCOUNTER → 2019-04-18 | Outpatient (REF) | payer MEDICARE, MEDICAID ==
--- NOTE | 2019-04-18 19:44 | REP ---
REASON: Pain. PRIORS: None. Portable AP and lateral views of the right knee were obtained. There is tricompartmental marginal osteophytosis with evidence of medial compartmental narrowing. There is also evidence of patellofemoral joint space narrowing on this limited exam. There is no evidence of an acute fracture. IMPRESSION: Chronic changes and limitations as described above. Electronically Signed by Dwaine Holt DO 04/19/2019 09:33 A
== END ==
PROVIDERS: ATTEND Internal Medicine
DX: M25.761 Osteophyte, right knee (principal); M25.561 Pain in right knee

== ENCOUNTER → 2019-05-10 | Outpatient (REF) | payer MEDICARE, MEDICAID ==
[2019-05-10 11:25] LABS: HEMATOCRIT 36.8 % (36.0-47.0); HEMOGLOBIN 11.3 g/dl (12.0-15.5); MEAN CORPUSCULAR HEMOGLOBIN 25.4 pg (27.0-33.0); MEAN CORPUSCULAR HGB CONC 30.7 g/dl (32.0-36.5); MEAN CORPUSCULAR VOLUME 82.7 fl (80.0-96.0); PLATELET COUNT, AUTOMATED 207 10^3/uL (150-450); RED BLOOD COUNT 4.45 10^6/uL (4.00-5.40)
[2019-05-10 11:50] LABS: CREATININE FOR GFR 1.43 MG/DL (0.55-1.30); GLOMERULAR FILTRATION RATE 37.1 (>32); POTASSIUM SERUM 4.8 MEQ/L (3.5-5.1)
== END ==
PROVIDERS: ATTEND Physician Assistant
DX: I50.9 Heart failure, unspecified (principal)

== ENCOUNTER → 2019-06-07 | Outpatient (REF) | payer MEDICARE, MEDICAID ==
[~2019-06-07] MED LIST changes: +CHOL100029 PO; -VITAD1000T PO
[2019-06-07 08:59] LABS: HEMATOCRIT 41.8 % (36.0-47.0); HEMOGLOBIN 12.7 g/dl (12.0-15.5); MEAN CORPUSCULAR HEMOGLOBIN 25.4 pg (27.0-33.0); MEAN CORPUSCULAR HGB CONC 30.4 g/dl (32.0-36.5); MEAN CORPUSCULAR VOLUME 83.6 fl (80.0-96.0); PLATELET COUNT, AUTOMATED 235 10^3/uL (150-450); WHITE BLOOD COUNT 8.2 10^3/uL (4.0-10.0)
[2019-06-07 09:21] LABS: CALCIUM LEVEL 9.3 MG/DL (8.8-10.2); CREATININE FOR GFR 1.41 MG/DL (0.55-1.30); GLOMERULAR FILTRATION RATE 37.7 (>32); POTASSIUM SERUM 4.5 MEQ/L (3.5-5.1)
== END ==
PROVIDERS: ATTEND Internal Medicine
DX: I50.9 Heart failure, unspecified (principal)

== ENCOUNTER → 2019-07-12 | Outpatient (REF) | payer MEDICARE, MEDICAID ==
[~2019-07-12] MED LIST changes: -OMEP40CA2 PO; +OMEP40CA97 PO
[2019-07-12 10:07] LABS: MEAN CORPUSCULAR HEMOGLOBIN 25.4 pg (27.0-33.0); MEAN CORPUSCULAR VOLUME 84.6 fl (80.0-96.0); PLATELET COUNT, AUTOMATED 224 10^3/uL (150-450); RED BLOOD COUNT 4.73 10^6/uL (4.00-5.40); WHITE BLOOD COUNT 7.9 10^3/uL (4.0-10.0)
[2019-07-12 10:19] LABS: CALCIUM LEVEL 9.5 MG/DL (8.8-10.2); CREATININE FOR GFR 1.53 MG/DL (0.55-1.30); GLOMERULAR FILTRATION RATE 34.3 (>32); POTASSIUM SERUM 4.3 MEQ/L (3.5-5.1)
== END ==
PROVIDERS: ATTEND Internal Medicine
DX: I50.9 Heart failure, unspecified (principal)

== ENCOUNTER → 2019-08-07 | Outpatient (REF) ==
[2019-08-07 10:57] LABS: HEMOGLOBIN 11.7 g/dl (12.0-15.5); MEAN CORPUSCULAR HEMOGLOBIN 24.9 pg (27.0-33.0); PLATELET COUNT, AUTOMATED 195 10^3/uL (150-450); WHITE BLOOD COUNT 8.3 10^3/uL (4.0-10.0)
[2019-08-07 11:06] LABS: ALBUMIN 3.4 GM/DL (3.2-5.2); BILIRUBIN,TOTAL 0.3 MG/DL (0.2-1.0); CALCIUM LEVEL 8.4 MG/DL (8.8-10.2); CREATININE FOR GFR 1.47 MG/DL (0.55-1.30); POTASSIUM SERUM 4.1 MEQ/L (3.5-5.1); TOTAL PROTEIN 6.9 GM/DL (6.4-8.2)
--- NOTE | 2019-08-07 16:00 | REPPI ---
Clinical: Wheezing. Technique: Portable upright view. Findings: Evaluation is severely limited by portable technique, underpenetration, and poor inspiratory effort. Left lower lobe infiltrate/atelectasis cannot be excluded along with mild pulmonary interstitial edema. Impression: Limited examination. Cannot exclude left lower lobe consolidation or interstitial edema. Electronically Signed by Karl Chicas MD 08/07/2019 03:52 P
== END ==
PROVIDERS: ATTEND Internal Medicine
DX: R06.2 Wheezing (principal)

== ENCOUNTER → 2019-08-14 | Outpatient (REF) | payer MEDICARE, MEDICAID | PROVIDERS: ATTEND Internal Medicine | DX: J21.0 Acute bronchiolitis due to respiratory syncytial virus (principal) ==

== ENCOUNTER → 2019-09-13 | Outpatient (REF) | payer MEDICARE, MEDICAID ==
[~2019-09-13] MED LIST changes: -MECL-68 PO; +MECL1TAB31 PO
[2019-09-13 09:59] LABS: HEMATOCRIT 39.7 % (36.0-47.0); HEMOGLOBIN 12.1 g/dl (12.0-15.5); MEAN CORPUSCULAR HEMOGLOBIN 25.4 pg (27.0-33.0); MEAN CORPUSCULAR HGB CONC 30.5 g/dl (32.0-36.5); MEAN CORPUSCULAR VOLUME 83.2 fl (80.0-96.0); PLATELET COUNT, AUTOMATED 210 10^3/uL (150-450); RED BLOOD COUNT 4.77 10^6/uL (4.00-5.40); WHITE BLOOD COUNT 7.6 10^3/uL (4.0-10.0)
[2019-09-13 10:08] LABS: CREATININE FOR GFR 1.35 MG/DL (0.55-1.30); GLOMERULAR FILTRATION RATE 39.7 (>32); POTASSIUM SERUM 4.5 MEQ/L (3.5-5.1)
== END ==
PROVIDERS: ATTEND Internal Medicine
DX: I50.9 Heart failure, unspecified (principal)

== ENCOUNTER → 2019-10-09 | Outpatient (REF) | payer MEDICARE, MEDICAID ==
[2019-10-09 10:09] LABS: HEMATOCRIT 37.9 % (36.0-47.0); HEMOGLOBIN 11.6 g/dl (12.0-15.5); MEAN CORPUSCULAR HEMOGLOBIN 25.9 pg (27.0-33.0); MEAN CORPUSCULAR HGB CONC 30.6 g/dl (32.0-36.5); MEAN CORPUSCULAR VOLUME 84.6 fl (80.0-96.0); PLATELET COUNT, AUTOMATED 210 10^3/uL (150-450); RED BLOOD COUNT 4.48 10^6/uL (4.00-5.40); WHITE BLOOD COUNT 7.5 10^3/uL (4.0-10.0)
[2019-10-09 10:45] LABS: CALCIUM LEVEL 8.9 MG/DL (8.8-10.2); CREATININE FOR GFR 1.38 MG/DL (0.55-1.30); GLOMERULAR FILTRATION RATE 38.7 (>32); POTASSIUM SERUM 4.9 MEQ/L (3.5-5.1)
== END ==
PROVIDERS: ATTEND Internal Medicine
DX: I50.9 Heart failure, unspecified (principal); Z79.899 Other long term (current) drug therapy

== ENCOUNTER → 2019-10-26 | Outpatient (CLI) | payer MEDICARE, MEDICAID ==
[~2019-10-26] MED LIST changes: +ISOVUE-370 76% 100ML VIAL (Q9967) As Ordered ONE; -ROPI1TAB PO; +ROPI1TAB3 PO
--- NOTE | 2019-10-26 13:57 | REP ---
SOFT-TISSUE NECK CT STUDY WITH IV CONTRAST: HISTORY: Left neck mass. Question abscess. CT CONTRAST DOSE: 75 mL of intravenous Isovue [address] FINDINGS: The opaque BB marker is affixed to the skin at the site of the palpable lump. At this level, there is a benign lipoma deep to the platysma on the left. The dimensions of the fatty deposit are 3.7 x 4.5 x 3.7 cm. No soft tissue component is seen. The lesion is homogeneous fat density. There is some outward bowing of the platysma on the left but no other significant mass effect is seen. Vascular calcification is noted in the carotid arteries bilaterally. The parotid glands are normal and symmetric. Submandibular glands are unremarkable. There is no evidence of adenopathy or abscess. There is a mucous retention cyst in the right maxillary sinus and a small quantity of fluid in the left maxillary sinus. No bony destructive lesion is appreciated. There is a small subcentimeter nodular opacity in the right upper lobe posteriorly, 3 mm in diameter, unchanged from comparison CT study November 11, 2018. There are degenerative spondylosis changes in the cervical spine. 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 No other significant finding. Electronically Signed by James Rangel MD 10/30/2019 08:55 A
== END ==
LOC: M RAD 11:52
PROVIDERS: ATTEND Nurse Practitioner Adult Health
DX: D17.0 Benign lipomatous neoplasm of skin and subcutaneous tissue of head, face and neck (principal); M54.2 Cervicalgia; R68.84 Jaw pain
CPT/HCPCS: 70491; Q9967

== ENCOUNTER → 2019-11-07 | Outpatient (REF) | payer MEDICARE, MEDICAID ==
[~2019-11-07] MED LIST changes: -ISOVUE-370 76% 100ML VIAL (Q9967) As Ordered ONE
[2019-11-07 12:59] LABS: HEMATOCRIT 35.8 % (36.0-47.0); HEMOGLOBIN 11.3 g/dl (12.0-15.5); MEAN CORPUSCULAR HEMOGLOBIN 26.3 pg (27.0-33.0); MEAN CORPUSCULAR HGB CONC 31.6 g/dl (32.0-36.5); MEAN CORPUSCULAR VOLUME 83.3 fl (80.0-96.0); PLATELET COUNT, AUTOMATED 210 10^3/uL (150-450); WHITE BLOOD COUNT 9.3 10^3/uL (4.0-10.0)
[2019-11-07 13:28] LABS: CALCIUM LEVEL 8.7 MG/DL (8.8-10.2); CREATININE FOR GFR 1.44 MG/DL (0.55-1.30); GLOMERULAR FILTRATION RATE 36.8 (>32); POTASSIUM SERUM 4.6 MEQ/L (3.5-5.1)
== END ==
PROVIDERS: ATTEND Internal Medicine
DX: I50.9 Heart failure, unspecified (principal)

== ENCOUNTER → 2019-12-06 | Outpatient (REF) | payer MEDICARE, MEDICAID ==
[2019-12-06 10:38] LABS: PHOSPHORUS LEVEL 3.5 MG/DL (2.5-4.9); THYROID STIMULATING HORMONE 0.561 uIU/ML (0.358-3.740)
[2019-12-06 11:19] LABS: PTH INTACT 95.5 PG/ML (18.5-88.0)
[2019-12-07 11:03] LABS: ALBUMIN 3.4 GM/DL (3.2-5.2); BILIRUBIN,TOTAL 0.4 MG/DL (0.2-1.0); CALCIUM LEVEL 9.1 MG/DL (8.8-10.2); CHOLESTEROL RISK RATIO 2.851 (<5); CREATININE FOR GFR 1.26 MG/DL (0.55-1.30); POTASSIUM SERUM 4.4 MEQ/L (3.5-5.1); TOTAL PROTEIN 6.8 GM/DL (6.4-8.2)
[2019-12-07 11:17] LABS: TOTAL 25(OH) VITAMIN D 32.9 NG/ML (30.0-100.0)
== END ==
PROVIDERS: ATTEND Internal Medicine
DX: I10 Essential (primary) hypertension (principal); Z79.899 Other long term (current) drug therapy

== ENCOUNTER → 2019-12-11 | Outpatient (REF) | payer MEDICARE, MEDICAID ==
[2019-12-11 11:36] LABS: HEMATOCRIT 38.2 % (36.0-47.0); HEMOGLOBIN 11.7 g/dl (12.0-15.5); MEAN CORPUSCULAR HEMOGLOBIN 25.6 pg (27.0-33.0); MEAN CORPUSCULAR HGB CONC 30.6 g/dl (32.0-36.5); MEAN CORPUSCULAR VOLUME 83.6 fl (80.0-96.0); PLATELET COUNT, AUTOMATED 209 10^3/uL (150-450); RED BLOOD COUNT 4.57 10^6/uL (4.00-5.40); WHITE BLOOD COUNT 7.3 10^3/uL (4.0-10.0)
[2019-12-11 11:59] LABS: HEMOGLOBIN A1c 7.7 %
== END ==
PROVIDERS: ATTEND Internal Medicine
DX: E11.9 Type 2 diabetes mellitus without complications (principal)

== ENCOUNTER → 2019-12-13 | Outpatient (REF) | payer MEDICARE, MEDICAID ==
[2019-12-13 13:39] LABS: CALCIUM LEVEL 9.3 MG/DL (8.8-10.2); CREATININE FOR GFR 1.5 MG/DL (0.55-1.30); GLOMERULAR FILTRATION RATE 35.1 (>32); POTASSIUM SERUM 4.6 MEQ/L (3.5-5.1)
== END ==
PROVIDERS: ATTEND Nurse Practitioner Adult Health
DX: I50.9 Heart failure, unspecified (principal)

== ENCOUNTER → 2020-01-05 | Outpatient (REF) | payer MEDICARE, MEDICAID ==
[2020-01-05 13:16] LABS: APPEARANCE, URINE HAZY (CLEAR); BACTERIA, URINE AUTO 2+ (NEGATIVE); BILIRUBIN, URINE AUTO NEGATIVE (NEGATIVE); BLOOD, URINE BLOOD NEGATIVE (NEGATIVE); COLOR, URINE YELLOW (YELLOW); GLUCOSE, URINE (UA) AUTO 1+ mg/dL (NEGATIVE); KETONE, URINE AUTO NEGATIVE (NEGATIVE); LEUKOCYTE ESTERASE, URINE AUTO 1+ (NEGATIVE); NITRITE, URINE AUTO POSITIVE (NEGATIVE); PROTEIN, URINE AUTO NEGATIVE (NEGATIVE); RBC, URINE AUTO 2 /HPF (0-3); SPECIFIC GRAVITY URINE AUTO 1.012 (1.002-1.035); SQUAMOUS EPITHELIAL CELL UR AU 0 /HPF (0-6); UROBILINOGEN, URINE AUTO 0.2 mg/dL (0.0-2.0); WBC, URINE AUTO 27 /HPF (0-3)
[2020-01-05 13:39] LABS: HEMATOCRIT 39.2 % (36.0-47.0); HEMOGLOBIN 12.4 g/dl (12.0-15.5); MEAN CORPUSCULAR HEMOGLOBIN 26.2 pg (27.0-33.0); MEAN CORPUSCULAR HGB CONC 31.6 g/dl (32.0-36.5); MEAN CORPUSCULAR VOLUME 82.7 fl (80.0-96.0); PLATELET COUNT, AUTOMATED 229 10^3/uL (150-450); RED BLOOD COUNT 4.74 10^6/uL (4.00-5.40); WHITE BLOOD COUNT 10.1 10^3/uL (4.0-10.0)
[2020-01-05 14:11] LABS: ALBUMIN 3.6 GM/DL (3.2-5.2); BILIRUBIN,TOTAL 0.3 MG/DL (0.2-1.0); CREATININE FOR GFR 1.47 MG/DL (0.55-1.30); POTASSIUM SERUM 4.3 MEQ/L (3.5-5.1); THYROID STIMULATING HORMONE 0.757 uIU/ML (0.358-3.740); TOTAL PROTEIN 7.3 GM/DL (6.4-8.2)
--- NOTE | 2020-01-09 18:16 | MHCRPDOC ---
[facility] Consultation Consultation DATE OF CONSULTATION: 01/09/20 Consult Darcy Owens MRN: N/A Date of : N/A Date of Service: 01/09/2020 Chief Complaint Consultation for behavioral problem History of Present Illness The patient a 34-year-old woman with a reported history of anxiety and depression presents for consultation at the [facility]. Her provider was concerned that she has episodes of confusion and paranoia that are unusual for her. She has a history of depression, anxiety currently treated on Zoloft and BuSpar. The nurse practitioner tried risperidone with limited re sults. The patient was met with, she was amenable and generally spoke well. Engaged in the area but she was a mildly paranoid about speaking without the door closed. She generally engaged but seemed to confabulate about various problems, including paranoia and behavioral issues. She was able to provide a fair history and generally reported that she was doing "fine". Review Of Systems Depression: The patient denies any episodes of unprovoked depressed mood associated with neurovegetative symptoms lasting longer than 2 weeks with symptoms present nearly everyday. Anxiety: The patient denies any excessive worry associated with physical symptoms. They deny any experience of discreet panic in the past. Irina: The patient denies any episodes of euphoria/dysphoria associated with decreased need for sleep, hedonism, talkatively or impulsivity lasting longer than 5 days. Psychotic: As above denies any auditory or visual hallucinations directly to me. Trauma: The patient denies any traumatic events associated with nightmares or intrusive thoughts. Borderline: Not screened due to age. Past Psychiatric History Has a history of anxiety, depression, treated on antidepressants but no history of seeing psychiatry, in patient admissions or suicide attempts. Family Psychiatric History The patient denies/is unaware any history of mental health history including addictions and suicide. Social History Patient grew up in the local area, is currently retired living [facility]. She reports that she has some support structures. She currently subsists on shelter benefits. No history of trauma or abuse. Medical History Cardiovascular related comorbidities but no history of brain injury. Some concern for dementia however no official testing done. Allergies See below Mental Status Examination General: Well dressed with good hygiene Speech: Spontaneous and fluid Thought processes: Linear and logical MSK: Smooth and coordinated gait, no signs of tremors or involuntary orofacial movements Thought content: Future orientated Abstract reasoning, and computation: Intact Description of associations: Mildly loosened. Description of abnormal or psychotic thoughts: Denies any suicidal or homicidal ideation. Denies any auditory or visual hallucinations. Does not appear to be responding to internal stimuli. Does not appear to be endorsing any bizarre or paranoid ideation. Judgment: Limited Insight: Limited Orientation: Alert and orientated 3 Cognition: Grossly normal Recent and remote memory: Mildly impaired. Attention span and concentration: Intact Fund of knowledge: Adequate Mood: "okay" Affect: Euthymic with a full range Diagnoses Unspecified major neurocognitive disorder Unspecified psychosis Assessment and Plan The patient an 84-year-old woman with possibly dementia vs. MDD with psychotic features is consulted on. It is unclear whether she is suffering from MDD with psychotic features vs. dementia. However, her mental status exam reveals a woman who takes care of herself quite well and appears quite amenable to discussion with a happy affect, suggesting possible neurocognitive disorder such as pre- existing dementia complicated with hypodelirium, which would involve paranoia and difficulty controlling agitation. She would likely do well with the baseline neuropsychological testing when available. However, I'd recommend continuing her Zoloft as it is likely helpful and her buspirone but using Seroquel 12.5 mg t .i.d. PRN for agitation, anxiety as it is much less likely to cause over sedation and delirium in individuals that are medication sensitive. However, more judicious use of melatonin or Rozerem have a prophylactic benefit for delirium, especially in older individuals. This would either come in recommendations of 3 mg of melatonin nightly or 8 mg of Rozerem. Disposition Does not need inpatient care, is not suicidal or homicidal, does not meet criteria for involuntary admission and is not appropriate for that level of care. Likely recommend continued outpatient care with neuropsychological testing. Follow up as needed. Time Spent 30 minutes Wednesday Home Medications Scheduled Albuterol Sulf (Albuterol Sulfate) 2.5 Mg/3 Ml Nebu, 2.5 MG INH Q6H, (Reported) Aspirin (Aspirin EC) 81 Mg Tab, 81 MG PO DAILY, (Reported) Atorvastatin Calcium (Atorvastatin Calcium) 20 Mg Tab, 20 MG PO QHS, (Reported) Cyanocobalamin (Vitamin B-12) (Vitamin B-12) 1,000 Mcg Tab, 1,000 MCG PO DAILY, (Reported) Cyclosporine (Restasis Multidose) 0.05 % Emu, 1 DROP OU BID, (Reported) Docusate Sodium (Colace) 100 Mg Capsule, 100 MG PO Q2D, (Reported) Furosemide (Lasix) 20 Mg Tablet, 20 MG PO DAILY, (Reported) Latanoprost (Xalatan) 0.005 % Meryl, 1 DROP OU QHS, (Reported) Magnesium Sulfate (Epsom Salt) 100 Gm Crystals, 1 DOSE TOP BID, (Reported) FOR FOOT BATH Methyl Salicylate/Menthol (Bengay Greaseless Cream) 1 Cre Cre, 1 APLCT TOP TID, (Reported) APPLY TO BACK AND SHOULDERS Multivitamins (Thera M Plus Tablet) 1 Tab Tab, 1 TAB PO DAILY, (Reported) Omeprazole (Omeprazole) 40 Mg Cap, 40 MG PO DAILY, (Reported) Oxycodone HCl/Acetaminophen (Oxycodone-Acetaminophen 5-325) 1 Tab Tab, 1 TAB PO QHS, (Reported) Potassium Chloride (Potassium Chloride) 10 Meq Tab.er.prt, 10 MEQ PO DAILY, (Reported) Salicylic Acid (Compound W) 17 % Liq, 1 APLCT TOP BID, (Reported) APPLY TO AFFECTED AREA ON FOOT. Salmeterol/Fluticasone (Advair 250-50 Diskus) 1 Each Blst.w.dev, 1 PUFF INH BID, (Reported) Sitagliptin Phosphate (Januvia) 25 Mg Tab, 25 MG PO DAILY, (Reported) Vitamin D (Vitamin D3) 1,000 Units Tab, 1,000 UNITS PO DAILY, (Reported) Scheduled PRN Acetaminophen (Acetaminophen) 325 Mg Tab, 650 MG PO Q4H PRN for PAIN, (Reported) Acetaminophen (Acetaminophen ER) 650 Mg Tablet.er, 650 MG PO Q8H PRN for PAIN, (Reported) Albuterol Sulf (Albuterol Sulfate) 2.5 Mg/3 Ml Vial.neb, 2.5 MG INH QID PRN for SHORTNESS OF BREATH, (Reported) Albuterol Sulfate (Ventolin Hfa) 108 Mcg/Act Aer, 2 PUFFS INH Q4H PRN for SHORTNESS OF BREATH, (Reported) Calcium Carbonate (Tums) 500 Mg Chw, 1,000 MG PO TID PRN for DYSPEPSIA, (Reported) Cevimeline Hydrochloride Hemih (Evoxac) 30 Mg Cap, 30 MG PO TID PRN for DRY MOUTH, (Reported) Docusate Sodium (Colace) 100 Mg Cap, 100 MG PO DAILY PRN for CONSTIPATION, (Reported) Milk Of Magnesia (Milk of Magnesia) 2,400 Mg/10 Ml Oral.susp, 10 ML PO DAILY PRN for CONSTIPATION, (Reported) Allergies Coded Allergies: Sulfa (Sulfonamide Antibiotics) (Verified Allergy, Unknown, 12/19/18) codeine (Verified Allergy, Unknown, 12/19/18) doxycycline (Verified Allergy, Unknown, 12/19/18) streptomycin (Verified Allergy, Unknown, 12/19/18) DIANA EDMONDS DO January 09, 2020 18:16
== END ==
PROVIDERS: ATTEND Internal Medicine
DX: R41.82 Altered mental status, unspecified (principal); Z79.899 Other long term (current) drug therapy; I50.9 Heart failure, unspecified

== ENCOUNTER 2020-01-15 12:05 | Emergency (ER) | payer MEDICARE, MEDICAID ==
[~2020-01-15] VITALS: Ht 149.9 cm; Wt 95.9 kg
[2020-01-15] MEDS ORDERED: ACE65ERTAB PO (13:21)
[2020-01-15] MEDS ORDERED: SENN-50 PO (13:21)
[2020-01-15] MEDS ORDERED: QUET1TAB7 PO (13:21)
[2020-01-15] MEDS ORDERED: [UNRECOGNIZED DRUG - CODE] PO (13:21)
[2020-01-15] MEDS ORDERED: BISA10SU27 PR (13:21)
[2020-01-15] MEDS ORDERED: MELA1TAB3 PO (13:21)
[2020-01-15] MEDS ORDERED: FURO40TA2 PO (13:21)
[2020-01-15] MEDS ORDERED: VITAD1000T PO (13:21)
[2020-01-15] MEDS ORDERED: BUSP10TA PO (13:21)
[2020-01-15] MEDS ORDERED: ENEMENE6 PR (13:21)
[2020-01-15] MEDS ORDERED: HYDR1CRE95 TOP (13:21)
[2020-01-15] MEDS ORDERED: SERT50TA29 PO (13:21)
[2020-01-15] MEDS ORDERED: GLUC1KIT IM (13:21)
[2020-01-15 14:18] LABS: ACETAMINOPHEN LEVEL 6.3 UG/ML (10.0-30.0); ALBUMIN 3.3 GM/DL (3.2-5.2); ALT/SGPT 20 U/L (12-78); BILIRUBIN,DIRECT < 0.1 MG/DL (0.0-0.2); BILIRUBIN,TOTAL 0.2 MG/DL (0.2-1.0); BLOOD UREA NITROGEN 33 MG/DL (7-18); CALCIUM LEVEL 8.4 MG/DL (8.8-10.2); CARBON DIOXIDE LEVEL 29 MEQ/L (21-32); CHLORIDE LEVEL 107 MEQ/L (98-107); CREATININE FOR GFR 1.51 MG/DL (0.55-1.30); GLOMERULAR FILTRATION RATE 34.9 (>32); GLUCOSE, FASTING 76 MG/DL (70-100); POTASSIUM SERUM 4.6 MEQ/L (3.5-5.1); SALICYLATE LEVEL < 1.7 MG/DL (5.0-30.0); SODIUM LEVEL 141 MEQ/L (136-145); THYROID STIMULATING HORMONE 0.916 uIU/ML (0.358-3.740); TOTAL PROTEIN 6.7 GM/DL (6.4-8.2)
[2020-01-15 14:19] LABS: ETHYL ALCOHOL (ETHANOL) < 0.003 % (0.000-0.010)
[2020-01-15 14:36] LABS: BASO # 0.1 10^3/uL (0.0-0.2); BASO % 0.6 % (0.0-1.0); EOS # 0.5 10^3/uL (0.0-0.5); EOS % 5.8 % (0.0-3.0); HEMATOCRIT 36.5 % (36.0-47.0); HEMOGLOBIN 11.3 g/dl (12.0-15.5); LYMPH # 1.5 10^3/uL (1.5-5.0); LYMPH % 17.4 % (24.0-44.0); MEAN CORPUSCULAR HEMOGLOBIN 25.9 pg (27.0-33.0); MEAN CORPUSCULAR VOLUME 83.5 fl (80.0-96.0); MONO # 0.8 10^3/uL (0.0-0.8); MONO % 8.8 % (0.0-5.0); NEUTROPHILS # 5.7 10^3/uL (1.5-8.5); NEUTROPHILS % 66.1 % (36.0-66.0); PLATELET COUNT, AUTOMATED 211 10^3/uL (150-450); RED BLOOD COUNT 4.37 10^6/uL (4.00-5.40); WHITE BLOOD COUNT 8.6 10^3/uL (4.0-10.0)
[2020-01-15 16:03] LABS: AMPHETAMINES LEVEL URINE NEGATIVE (NEGATIVE); BARBITURATES URINE NEGATIVE (NEGATIVE); BENZODIAZEPINES URINE NEGATIVE (NEGATIVE); CANNABINOIDS URINE NEGATIVE (NEGATIVE); COCAINE METABOLITE URINE NEGATIVE (NEGATIVE); METHADONE URINE NEGATIVE (NEGATIVE); OPIATES URINE NEGATIVE (NEGATIVE); PHENCYCLIDINE URINE NEGATIVE (NEGATIVE)
[2020-01-15 16:57] VITALS: BP 142/76
== END 2020-01-15 17:11 | disposition home or self-care (01) ==
LOC: EDBD 12:05 → M ED 12:05
DX: F33.9 Major depressive disorder, recurrent, unspecified (principal); E11.9 Type 2 diabetes mellitus without complications; I50.9 Heart failure, unspecified; E78.5 Hyperlipidemia, unspecified; K21.9 Gastro-esophageal reflux disease without esophagitis; K58.9 Irritable bowel syndrome, unspecified; F41.9 Anxiety disorder, unspecified; G25.81 Restless legs syndrome; Z79.899 Other long term (current) drug therapy; Z79.82 Long term (current) use of aspirin; Z88.1 Allergy status to other antibiotic agents; Z88.2 Allergy status to sulfonamides; Z88.5 Allergy status to narcotic agent
CPT/HCPCS: 36415; 80048; 80076; 80307; 81001; 84443; 85025; 99284; G0480

== ENCOUNTER → 2020-01-22 | Outpatient (REF) ==
[~2020-01-22] MED LIST changes: +BISA10SU27 PR; +BUSP10TA PO; +ENEMENE6 PR; +FURO40TA2 PO; +GLUC1KIT IM; +HYDR1CRE95 TOP; +MELA1TAB3 PO; +QUET1TAB7 PO; +SENN-50 PO; +SERT50TA29 PO; +VITAD1000T PO; +[UNRECOGNIZED DRUG - CODE] PO
== END ==
PROVIDERS: ATTEND Internal Medicine
DX: Z03.818 Encounter for observation for suspected exposure to other biological agents ruled out (principal)

== ENCOUNTER → 2020-05-22 | Outpatient (REF) | payer MEDICARE, MEDICAID, OTHER ==
[~2020-05-22] MED LIST changes: -ASPI81TA85 PO; +ASPI81TA86 PO; +D31000TA2 PO; -VITA1TAB23 PO; +VITA250T26 PO; -VITAD1000T PO
== END ==
PROVIDERS: ATTEND Nurse Practitioner Adult Health
DX: E53.8 Deficiency of other specified B group vitamins (principal)

== ENCOUNTER → 2020-06-07 | Outpatient (REF) | payer MEDICARE, MEDICAID, OTHER ==
[2020-06-07 08:47] LABS: CALCIUM LEVEL 8.6 MG/DL (8.8-10.2); CREATININE FOR GFR 1.49 MG/DL (0.55-1.30); GLOMERULAR FILTRATION RATE 35.3 (>32); POTASSIUM SERUM 3.8 MEQ/L (3.5-5.1)
== END ==
PROVIDERS: ATTEND Internal Medicine
DX: I50.9 Heart failure, unspecified (principal)

== ENCOUNTER → 2020-06-13 | Outpatient (REF) | payer MEDICARE, MEDICAID, OTHER ==
[2020-06-13 10:17] LABS: HEMATOCRIT 39.6 % (36.0-47.0); HEMOGLOBIN 11.8 g/dl (12.0-15.5); MEAN CORPUSCULAR HEMOGLOBIN 25.3 pg (27.0-33.0); MEAN CORPUSCULAR HGB CONC 29.8 g/dl (32.0-36.5); MEAN CORPUSCULAR VOLUME 84.8 fl (80.0-96.0); PLATELET COUNT, AUTOMATED 191 10^3/uL (150-450); RED BLOOD COUNT 4.67 10^6/uL (4.00-5.40)
[2020-06-13 10:34] LABS: HEMOGLOBIN A1c 6.7 %
[2020-06-13 10:38] LABS: CALCIUM LEVEL 9.1 MG/DL (8.8-10.2); CREATININE FOR GFR 1.51 MG/DL (0.55-1.30); GLOMERULAR FILTRATION RATE 34.8 (>32); POTASSIUM SERUM 4.7 MEQ/L (3.5-5.1)
== END ==
PROVIDERS: ATTEND Internal Medicine
DX: I50.9 Heart failure, unspecified (principal); Z79.899 Other long term (current) drug therapy

== ENCOUNTER → 2020-07-09 | Outpatient (REF) | payer MEDICARE, MEDICAID, OTHER ==
[2020-07-09 10:51] LABS: CALCIUM LEVEL 8.8 MG/DL (8.8-10.2); CREATININE FOR GFR 1.54 MG/DL (0.55-1.30); POTASSIUM SERUM 4.2 MEQ/L (3.5-5.1)
== END ==
PROVIDERS: ATTEND Internal Medicine
DX: I10 Essential (primary) hypertension (principal)

== ENCOUNTER → 2020-07-18 | Outpatient (REF) | PROVIDERS: ATTEND Internal Medicine | DX: Z20.828 Contact with and (suspected) exposure to other viral communicable diseases (principal) ==

== ENCOUNTER → 2020-07-25 | Outpatient (REF) | payer MEDICARE, MEDICAID ==
[~2020-07-25] MED LIST changes: -QUET1TAB7 PO; +QUET25TA3 PO
== END ==
LOC: EDSTATUS 09-03 15:46
PROVIDERS: ATTEND Internal Medicine
DX: Z20.828 Contact with and (suspected) exposure to other viral communicable diseases (principal)

== ENCOUNTER → 2020-07-31 | Outpatient (REF) | payer MEDICARE, MEDICAID | PROVIDERS: ATTEND Internal Medicine | DX: Z20.828 Contact with and (suspected) exposure to other viral communicable diseases (principal) ==

== ENCOUNTER → 2020-08-09 | Outpatient (CLI) | payer MEDICARE, MEDICAID ==
[~2020-08-09] MED LIST changes: +QUET1TAB7 PO; -QUET25TA3 PO
--- NOTE | 2020-08-09 14:32 | REP ---
INDICATION: BOWEL SOUNDS IN CHEST CAVITY,CHEST PRESSURE/PAIN. COMPARISON: November 11, 2018.. TECHNIQUE: Helical scanning is acquired and 3 mm axial images are generated. Coronal and sagittal MPR images are generated. FINDINGS: Preliminary digital spindraw operator radiograph shows clips in right upper quadrant of the abdomen. The patient was unable to rays are arms out of of the scanned field of view. There is no evidence of pleural or pericardial effusion. There is no visible hiatal hernia or diaphragmatic hernia. Mild linear platelike atelectasis is seen in the lower lobes bilaterally. Lung hess are otherwise clear. No mass lesion or significant pulmonary nodule is appreciated. There is a calcified granuloma in the left lower lobe superior segment. There are 2 small granulomatous calcifications in the right upper lobe. No infiltrate is seen. Thoracic kyphosis is quite exaggerated in the patient is status post vertebroplasty for collapsed vertebral body. There is osteoporotic wedging in 2 other levels above the level of the vertebroplasty. No bony destructive lesion is appreciated. A pacemaker is seen in the right heart view of the left side. No hilar or mediastinal mass or adenopathy is observed. IMPRESSION: Exaggerated thoracic kyphosis and some hyperinflation. Pacemaker. Old granulomatous calcifications. No acute disease. <Electronically signed by De Rangel > 08/09/20 [id number]
--- NOTE | 2020-08-09 14:35 | REP ---
INDICATION: BOWEL SOUNDS IN CHEST CAVITY,CHEST PRESSURE/PAIN COMPARISON: None. TECHNIQUE: Helical scanning is acquired in 4 mm axial images were reformatted. Coronal and sagittal MPR images were generated and reviewed. FINDINGS: The patient was unable to raise her arms out of the scanned field of view. Bowel gas pattern is unremarkable. Pacemaker is seen in the heart. Post cholecystectomy clips are noted. The liver and the spleen are normal in size homogeneous in texture. Normal adrenal glands are seen. No renal mass or cyst is seen. No evidence hydronephrosis is observed. There is no evidence of hiatal hernia or other abdominal wall defect. Small and large bowel loops are unremarkable. Mild left colonic diverticulosis is seen. There is no CT evidence of diverticulitis. The uterus is surgically absent. No inflammatory bowel changes are seen. There is an anastomosis in the region of the rectosigmoid colon status post partial left colectomy. Bone window settings show diffuse osteopenia. No acute bony abnormality is seen. There is degenerative grade 1 spondylolisthesis at L5-S1. No pars defect is seen. IMPRESSION: No acute abdominal or pelvic abnormality seen. Left colonic diverticulosis. Post cholecystectomy, hysterectomy, and partial left colectomy changes. Otherwise negative. <Electronically signed by De Rangel > 08/09/20 [id number]
== END ==
LOC: M RAD 13:17
PROVIDERS: ATTEND Nurse Practitioner Adult Health
DX: M40.204 Unspecified kyphosis, thoracic region (principal); Z95.0 Presence of cardiac pacemaker; Z97.8 Presence of other specified devices; Z90.49 Acquired absence of other specified parts of digestive tract; Z90.79 Acquired absence of other genital organ(s)

== ENCOUNTER → 2020-08-18 | Outpatient (REF) | payer MEDICARE, MEDICAID | PROVIDERS: ATTEND Internal Medicine | DX: Z20.828 Contact with and (suspected) exposure to other viral communicable diseases (principal) ==

== ENCOUNTER → 2020-08-21 | Outpatient (REF) | payer MEDICARE, MEDICAID ==
--- NOTE | 2020-08-21 16:02 | REPPI ---
INDICATION: SOB 456-1. COMPARISON: Comparison chest x-ray August 07, 2019.. TECHNIQUE: Erect AP chest x-ray. FINDINGS: A bipolar pacemaker is seen in the right heart view of the left side. Cardiomegaly is observed. The patient's mandible overlies the left lung apex similar to the prior study. The thoracic aorta is tortuous. No infiltrate is seen in the lung hess. Pulmonary vasculature is not increased. IMPRESSION: Cardiomegaly with pacemaker. No infiltrate seen. <Electronically signed by De Rangel > 08/21/20 [id number]
== END ==
PROVIDERS: ATTEND Internal Medicine
DX: I51.7 Cardiomegaly (principal); R06.02 Shortness of breath; Z95.0 Presence of cardiac pacemaker

== ENCOUNTER → 2020-08-22 | Outpatient (REF) | payer MEDICARE, MEDICAID ==
[2020-08-22 09:34] LABS: CALCIUM LEVEL 8.4 MG/DL (8.8-10.2); CREATININE FOR GFR 1.29 MG/DL (0.55-1.30); GLOMERULAR FILTRATION RATE 41.7 (>32); POTASSIUM SERUM 4.4 MEQ/L (3.5-5.1)
== END ==
PROVIDERS: ATTEND Internal Medicine
DX: I50.9 Heart failure, unspecified (principal); Z20.828 Contact with and (suspected) exposure to other viral communicable diseases
CPT/HCPCS: 36415; 80048; U0003

== ENCOUNTER → 2020-08-26 | Outpatient (REF) | payer MEDICARE, MEDICAID ==
[2020-08-26 12:02] LABS: RSV AMPLIFICATION NEGATIVE (NEGATIVE)
== END ==
PROVIDERS: ATTEND Internal Medicine
DX: Z20.828 Contact with and (suspected) exposure to other viral communicable diseases (principal)

== ENCOUNTER → 2020-08-27 | Outpatient (REF) | payer MEDICARE, MEDICAID ==
[2020-08-27 11:24] LABS: CALCIUM LEVEL 8.9 MG/DL (8.8-10.2); CREATININE FOR GFR 1.61 MG/DL (0.55-1.30); GLOMERULAR FILTRATION RATE 32.3 (>32); POTASSIUM SERUM 4.4 MEQ/L (3.5-5.1)
== END ==
PROVIDERS: ATTEND Internal Medicine
DX: I50.9 Heart failure, unspecified (principal)

== ENCOUNTER → 2020-08-28 | Outpatient (REF) | payer MEDICARE, MEDICAID | PROVIDERS: ATTEND Internal Medicine | DX: Z20.828 Contact with and (suspected) exposure to other viral communicable diseases (principal) ==

== ENCOUNTER → 2020-08-29 | Outpatient (REF) | payer MEDICARE, MEDICAID | PROVIDERS: ATTEND Internal Medicine | DX: Z20.828 Contact with and (suspected) exposure to other viral communicable diseases (principal) ==

== ENCOUNTER → 2020-09-03 | Outpatient (REF) | payer MEDICARE, MEDICAID ==
--- NOTE | 2020-09-03 16:35 | REPPI ---
INDICATION: 123-2 ELEVATED HEART RATE AND COVID 19 COMPARISON: 08/21/2020 TECHNIQUE: Portable AP view of the chest FINDINGS: The mediastinum and cardiac silhouette are stable and within normal limits for portable technique. The lung hess suggest chronic changes at the left base without acute consolidation, effusion, or pneumothorax. Skeletal structures are intact. IMPRESSION: Presumed chronic changes at the left base. No obvious focal consolidation or effusion. <Electronically signed by Karl Chicas > 09/03/20 [id number]
== END ==
PROVIDERS: ATTEND Internal Medicine
DX: U07.1 COVID-19 (principal); R00.0 Tachycardia, unspecified

== ENCOUNTER 2020-09-12 13:05 | Emergency (ER) | payer MEDICARE, MEDICAID ==
--- NOTE | 2020-09-12 14:17 | REP ---
INDICATION: CHEST PAIN COMPARISON: 09/03/2020 TECHNIQUE: Portable AP view of the chest FINDINGS: The mediastinum and cardiac silhouette are stable and within normal limits for portable technique. The lung hess are clear without acute consolidation, effusion, or pneumothorax. Skeletal structures are intact. IMPRESSION: No acute cardiopulmonary process appreciated. <Electronically signed by Karl Chicas > 09/12/20 [id number]
[2020-09-12 16:13] LABS: BASO % 0.2 % (0.0-1.0); HEMATOCRIT 47.8 % (36.0-47.0); HEMOGLOBIN 14.6 g/dl (12.0-15.5); LYMPH # 0.5 10^3/uL (1.5-5.0); LYMPH % 5.1 % (24.0-44.0); MEAN CORPUSCULAR HEMOGLOBIN 25.5 pg (27.0-33.0); MEAN CORPUSCULAR HGB CONC 30.5 g/dl (32.0-36.5); MEAN CORPUSCULAR VOLUME 83.4 fl (80.0-96.0); MONO # 0.1 10^3/uL (0.0-0.8); MONO % 0.6 % (0.0-5.0); NEUTROPHILS # 8.8 10^3/uL (1.5-8.5); NEUTROPHILS % 93.5 % (36.0-66.0); PLATELET COUNT, AUTOMATED 217 10^3/uL (150-450); RED BLOOD COUNT 5.73 10^6/uL (4.00-5.40); WHITE BLOOD COUNT 9.5 10^3/uL (4.0-10.0)
[2020-09-12 16:55] LABS: ALBUMIN 3.7 GM/DL (3.2-5.2); BILIRUBIN,DIRECT 0.2 MG/DL (0.0-0.2); BILIRUBIN,TOTAL 0.5 MG/DL (0.2-1.0); CALCIUM LEVEL 9.2 MG/DL (8.8-10.2); CK-MB VALUE MASS 4.1 NG/ML (<3.6); CREATININE FOR GFR 1.77 MG/DL (0.55-1.30); MB/CK RELATIVE INDEX 6.61 (< OR =4); THYROID STIMULATING HORMONE 0.265 uIU/ML (0.358-3.740); TOTAL PROTEIN 7.5 GM/DL (6.4-8.2); TROPONIN I 0.03 NG/ML (< 0.10)
[2020-09-12] MEDS ORDERED: cefTRIAXone SOD 1 GM in D5W MINI-BAG PLUS 50 ML IV ONE (18:45)
[2020-09-12] MEDS ORDERED: NS 500 ML IV ONE (18:45)
[2020-09-12 20:31] VITALS: BP 132/48
--- NOTE | 2020-09-13 21:31 | ECGEPIP ---
[facility] - ED Test Date: 2020-09-12 Pat Name: GRACE TELLEZ Department: Room: - Gender: Female Adaptive Physical Educator: SAMUELAIDA : 1935 Requested By: ALFONSO BINGHAM Order Number: [id number] Reading MD: Jaden Baltazar Measurements Intervals [place] Rate: 95 P: 38 AL: 263 QRS: -79 QRSD: 133 T: 72 QT: 359 QTc: 453 Interpretive Statements SINUS RHYTHM WITH FIRST DEGREE AV BLOCK POSSIBLE LEFT ATRIAL ENLARGEMENT INTRAVENTRICULAR CONDUCTION DELAY POSSIBLE ANTERIOR MYOCARDIAL INFARCTION, OF INDETERMINATE AGE LEFT ANTERIOR FASCICULAR BLOCK SIMILAR TO 11/11/18 Electronically Signed on 09-13-2020 21:31:09 EST by Jaden Baltazar
== END 2020-09-12 20:49 | disposition home or self-care (01) ==
LOC: EDBD 13:05 → M ED 13:05
DX: N39.0 Urinary tract infection, site not specified (principal); E86.0 Dehydration; R41.0 Disorientation, unspecified; U07.1 COVID-19; I44.0 Atrioventricular block, first degree; I44.4 Left anterior fascicular block; I11.0 Hypertensive heart disease with heart failure; I50.9 Heart failure, unspecified; J44.9 Chronic obstructive pulmonary disease, unspecified; E78.5 Hyperlipidemia, unspecified; F03.90 Unspecified dementia, unspecified severity, without behavioral disturbance, psychotic disturbance, mood disturbance, and anxiety; Z88.2 Allergy status to sulfonamides; Z88.5 Allergy status to narcotic agent; Z88.1 Allergy status to other antibiotic agents; Z79.899 Other long term (current) drug therapy; Z79.82 Long term (current) use of aspirin; Z79.891 Long term (current) use of opiate analgesic
CPT/HCPCS: 36415; 51701; 71045; 80048; 80076; 81001; 82550; 82553; 83690; 83880; 84443; 84484; 85025; 87086; 93005; 93041; 94760; 96365; 99285; J0696

== ENCOUNTER → 2020-12-04 | Outpatient (REF) | payer MEDICARE, MEDICAID, OTHER ==
[~2020-12-04] MED LIST changes: -QUET1TAB7 PO; +QUET25TA3 PO
[2020-12-04 11:57] LABS: BASO # 0.1 10^3/uL (0.0-0.2); BASO % 0.7 % (0.0-1.0); EOS # 0.4 10^3/uL (0.0-0.5); EOS % 4.9 % (0.0-3.0); HEMATOCRIT 39.9 % (36.0-47.0); HEMOGLOBIN 12.3 g/dl (12.0-15.5); LYMPH # 1.6 10^3/uL (1.5-5.0); MEAN CORPUSCULAR HEMOGLOBIN 26.7 pg (27.0-33.0); MEAN CORPUSCULAR HGB CONC 30.8 g/dl (32.0-36.5); MEAN CORPUSCULAR VOLUME 86.7 fl (80.0-96.0); MONO # 0.6 10^3/uL (0.0-0.8); MONO % 6.8 % (2.0-8.0); NEUTROPHILS # 6.2 10^3/uL (1.5-8.5); NEUTROPHILS % 69.2 % (36.0-66.0); PLATELET COUNT, AUTOMATED 214 10^3/uL (150-450)
[2020-12-04 12:27] LABS: ALBUMIN 3.3 GM/DL (3.2-5.2); ALT/SGPT 14 U/L (12-78); BILIRUBIN,TOTAL 0.3 MG/DL (0.2-1.0); BLOOD UREA NITROGEN 30 MG/DL (7-18); CALCIUM LEVEL 9.5 MG/DL (8.8-10.2); CARBON DIOXIDE LEVEL 31 MEQ/L (21-32); CHLORIDE LEVEL 104 MEQ/L (98-107); GLOMERULAR FILTRATION RATE 45.3 (>32); GLUCOSE, FASTING 105 MG/DL (70-100); POTASSIUM SERUM 4.1 MEQ/L (3.5-5.1); SODIUM LEVEL 140 MEQ/L (136-145); TOTAL PROTEIN 6.7 GM/DL (6.4-8.2)
[2020-12-04 12:46] LABS: HEPATITIS B SURFACE ANTIGEN NEGATIVE (NEGATIVE)
[2020-12-04 13:12] LABS: HEPATITIS C VIRUS ABY INDEX < 0.0 INDEX (<0.8)
[2020-12-04 13:13] LABS: HEPATITIS B CORE ANTIBODY IGM NEGATIVE (NEGATIVE)
[2020-12-04 13:15] LABS: HEPATITIS A ANTIBODY IGM NEGATIVE (NEGATIVE)
== END ==
PROVIDERS: ATTEND Nurse Practitioner Adult Health
DX: R19.7 Diarrhea, unspecified (principal)

== ENCOUNTER → 2020-12-09 | Outpatient (REF) | payer MEDICARE, MEDICAID, OTHER ==
[2020-12-09 11:32] LABS: HEMATOCRIT 39.9 % (36.0-47.0); HEMOGLOBIN 12.3 g/dl (12.0-15.5); MEAN CORPUSCULAR HEMOGLOBIN 27.1 pg (27.0-33.0); MEAN CORPUSCULAR HGB CONC 30.8 g/dl (32.0-36.5); MEAN CORPUSCULAR VOLUME 87.9 fl (80.0-96.0); PLATELET COUNT, AUTOMATED 207 10^3/uL (150-450); RED BLOOD COUNT 4.54 10^6/uL (4.00-5.40); WHITE BLOOD COUNT 8.1 10^3/uL (4.0-10.0)
[2020-12-09 11:55] LABS: HEMOGLOBIN A1c 6.6 %
[2020-12-09 12:14] LABS: CALCIUM LEVEL 9.5 MG/DL (8.8-10.2); CREATININE FOR GFR 1.34 MG/DL (0.55-1.30); GLOMERULAR FILTRATION RATE 39.9 (>32); POTASSIUM SERUM 4.2 MEQ/L (3.5-5.1); PTH INTACT 50.4 PG/ML (18.5-88.0)
[2020-12-09 12:15] LABS: CHOLESTEROL RISK RATIO 2.714 (<5); MAGNESIUM LEVEL 1.7 MG/DL (1.8-2.4); THYROID STIMULATING HORMONE 0.979 uIU/ML (0.358-3.740); TOTAL 25(OH) VITAMIN D 25.8 NG/ML (30.0-100.0)
== END ==
PROVIDERS: ATTEND Physician Assistant
DX: N18.9 Chronic kidney disease, unspecified (principal); E11.9 Type 2 diabetes mellitus without complications; I50.9 Heart failure, unspecified; Z79.899 Other long term (current) drug therapy

== ENCOUNTER → 2020-12-13 | Outpatient (REF) | payer MEDICARE, MEDICAID, OTHER ==
[2020-12-13 16:03] LABS: INFLUENZA A AMPLIFICATION NEGATIVE (NEGATIVE); INFLUENZA B AMPLIFICATION NEGATIVE (NEGATIVE)
== END ==
PROVIDERS: ATTEND Internal Medicine
DX: Z11.52 Encounter for screening for COVID-19 (principal)

== ENCOUNTER → 2021-01-28 | Outpatient (REF) | payer MEDICARE, MEDICAID, OTHER ==
[2021-01-28 12:30] LABS: HEMATOCRIT 38.9 % (36.0-47.0); HEMOGLOBIN 11.7 g/dl (12.0-15.5); MEAN CORPUSCULAR HEMOGLOBIN 26.2 pg (27.0-33.0); MEAN CORPUSCULAR HGB CONC 30.1 g/dl (32.0-36.5); MEAN CORPUSCULAR VOLUME 87.2 fl (80.0-96.0); PLATELET COUNT, AUTOMATED 181 10^3/uL (150-450); RED BLOOD COUNT 4.46 10^6/uL (4.00-5.40)
[2021-01-28 13:00] LABS: CALCIUM LEVEL 8.8 MG/DL (8.8-10.2); CREATININE FOR GFR 1.33 MG/DL (0.55-1.30); GLOMERULAR FILTRATION RATE 40.3 (>32); POTASSIUM SERUM 4.4 MEQ/L (3.5-5.1)
== END ==
PROVIDERS: ATTEND Internal Medicine
DX: R41.82 Altered mental status, unspecified (principal)

== ENCOUNTER → 2021-03-07 | Outpatient (REF) | payer MEDICARE, MEDICAID, OTHER ==
[~2021-03-07] MED LIST changes: +OMEP40CA4 PO; -OMEP40CA97 PO
[2021-03-07 10:58] LABS: CALCIUM LEVEL 8.9 MG/DL (8.8-10.2); CREATININE FOR GFR 1.53 MG/DL (0.55-1.30); GLOMERULAR FILTRATION RATE 34.2 (>32); POTASSIUM SERUM 4.3 MEQ/L (3.5-5.1)
== END ==
PROVIDERS: ATTEND Nurse Practitioner Adult Health
DX: I50.9 Heart failure, unspecified (principal)

== ENCOUNTER → 2021-04-10 | Outpatient (REF) | payer MEDICARE, MEDICAID, OTHER | PROVIDERS: ATTEND Internal Medicine | DX: R41.82 Altered mental status, unspecified (principal) ==

== ENCOUNTER → 2021-05-01 | Outpatient (REF) | payer MEDICARE, MEDICAID, OTHER ==
[~2021-05-01] MED LIST changes: +QUET1TAB17 PO; -QUET25TA3 PO
[2021-05-01 11:34] LABS: CREATININE FOR GFR 1.38 MG/DL (0.55-1.30); GLOMERULAR FILTRATION RATE 38.5 (>32)
[2021-05-01 11:35] LABS: CALCIUM LEVEL 8.8 MG/DL (8.8-10.2)
== END ==
PROVIDERS: ATTEND Internal Medicine
DX: R06.02 Shortness of breath (principal)

== ENCOUNTER → 2021-05-14 | Outpatient (REF) | payer MEDICARE, MEDICAID, OTHER ==
[2021-05-14 18:02] LABS: APPEARANCE, URINE CLEAR (CLEAR); BACTERIA, URINE AUTO NEGATIVE (NEGATIVE); BILIRUBIN, URINE AUTO NEGATIVE (NEGATIVE); BLOOD, URINE BLOOD NEGATIVE (NEGATIVE); COLOR, URINE STRAW (YELLOW); GLUCOSE, URINE (UA) AUTO NEGATIVE (NEGATIVE); KETONE, URINE AUTO NEGATIVE (NEGATIVE); LEUKOCYTE ESTERASE, URINE AUTO NEGATIVE (NEGATIVE); NITRITE, URINE AUTO NEGATIVE (NEGATIVE); PROTEIN, URINE AUTO NEGATIVE (NEGATIVE); RBC, URINE AUTO 0 /HPF (0-3); SPECIFIC GRAVITY URINE AUTO 1.008 (1.002-1.035); SQUAMOUS EPITHELIAL CELL UR AU 0 /HPF (0-6); UROBILINOGEN, URINE AUTO 0.2 mg/dL (0.0-2.0); WBC, URINE AUTO 0 /HPF (0-3)
== END ==
PROVIDERS: ATTEND Internal Medicine
DX: R32 Unspecified urinary incontinence (principal)

== ENCOUNTER → 2021-05-21 | Outpatient (REF) | payer MEDICARE, MEDICAID, OTHER ==
[2021-05-21 15:05] LABS: HEMATOCRIT 41.3 % (36.0-47.0); HEMOGLOBIN 12.7 g/dl (12.0-15.5); MEAN CORPUSCULAR HEMOGLOBIN 25.8 pg (27.0-33.0); MEAN CORPUSCULAR HGB CONC 30.8 g/dl (32.0-36.5); MEAN CORPUSCULAR VOLUME 83.9 fl (80.0-96.0); PLATELET COUNT, AUTOMATED 228 10^3/uL (150-450); RED BLOOD COUNT 4.92 10^6/uL (4.00-5.40); WHITE BLOOD COUNT 11.4 10^3/uL (4.0-10.0)
[2021-05-21 15:33] LABS: BILIRUBIN,TOTAL 0.3 MG/DL (0.2-1.0); CALCIUM LEVEL 9.2 MG/DL (8.8-10.2); CREATININE FOR GFR 1.98 MG/DL (0.55-1.30); GLOMERULAR FILTRATION RATE 25.4 (>32); POTASSIUM SERUM 4.5 MEQ/L (3.5-5.1); TOTAL PROTEIN 7.1 GM/DL (6.4-8.2)
== END ==
PROVIDERS: ATTEND Nurse Practitioner Adult Health
DX: I50.9 Heart failure, unspecified (principal)

== ENCOUNTER → 2021-05-23 | Outpatient (CLI) | payer MEDICARE, OTHER, MEDICAID ==
[~2021-05-23] MED LIST changes: +ACET1TAB55 PO; +ACET650T61 PO; +AUGM500T34 PO; +BISA10SU20 PR; +ERTA1INJ2 IV; +FLEEENE12 PR; +K-TA10TA PO; +MILKSUS3 PO; +NYST10OI TOP; +QC A650T3 PO; +SENN-122 PO; +SENN-80 PO; +SPIR-10 PO
== END ==
LOC: M RAD 12:15
PROVIDERS: ATTEND Nurse Practitioner Adult Health
DX: R06.02 Shortness of breath (principal)

== ENCOUNTER → 2021-05-28 | Outpatient (REF) | payer MEDICARE, OTHER, MEDICAID ==
[~2021-05-28] MED LIST changes: -AUGM500T34 PO; -NYST10OI TOP
[2021-05-28 12:48] LABS: HEMATOCRIT 41.9 % (36.0-47.0); HEMOGLOBIN 13.2 g/dl (12.0-15.5); MEAN CORPUSCULAR HEMOGLOBIN 26.2 pg (27.0-33.0); MEAN CORPUSCULAR HGB CONC 31.5 g/dl (32.0-36.5); MEAN CORPUSCULAR VOLUME 83.1 fl (80.0-96.0); PLATELET COUNT, AUTOMATED 237 10^3/uL (150-450); RED BLOOD COUNT 5.04 10^6/uL (4.00-5.40); WHITE BLOOD COUNT 17.4 10^3/uL (4.0-10.0)
[2021-05-28 14:00] LABS: CREATININE FOR GFR 1.59 MG/DL (0.55-1.30); GLOMERULAR FILTRATION RATE 32.7 (>32); POTASSIUM SERUM 4.2 MEQ/L (3.5-5.1)
== END ==
PROVIDERS: ATTEND Internal Medicine
DX: K11.20 Sialoadenitis, unspecified (principal)

== ENCOUNTER 2021-05-29 11:24 | Inpatient (IN) | payer MEDICARE, OTHER, MEDICAID ==
[~2021-05-29] VITALS: Ht 157.5 cm; Wt 98.1 kg
[~2021-05-29 11:24] MED LIST changes: -ACET1TAB55 PO; -ACET650T61 PO; -BISA10SU20 PR; -ERTA1INJ2 IV; -FLEEENE12 PR; -K-TA10TA PO; -MILKSUS3 PO; -QC A650T3 PO; -SENN-122 PO; -SENN-80 PO; -SPIR-10 PO
[2021-05-29] MEDS ORDERED: ADV250INH INH (12:38)
[2021-05-29] MEDS ORDERED: SENN-80 PO (12:38)
[2021-05-29] MEDS ORDERED: SPIR-10 PO (13:07)
[2021-05-29] MEDS ORDERED: ERTA1INJ2 IV (13:07)
[2021-05-29 13:39] LABS: BASO # 0.1 10^3/uL (0.0-0.2); BASO % 0.5 % (0.0-1.0); EOS # 0.4 10^3/uL (0.0-0.5); EOS % 2.7 % (0.0-3.0); HEMATOCRIT 40.9 % (36.0-47.0); HEMOGLOBIN 12.8 g/dl (12.0-15.5); LYMPH # 1.5 10^3/uL (1.5-5.0); LYMPH % 9.6 % (24.0-44.0); MEAN CORPUSCULAR HEMOGLOBIN 26.2 pg (27.0-33.0); MEAN CORPUSCULAR HGB CONC 31.3 g/dl (32.0-36.5); MEAN CORPUSCULAR VOLUME 83.8 fl (80.0-96.0); MONO # 0.7 10^3/uL (0.0-0.8); MONO % 4.8 % (2.0-8.0); NEUTROPHILS # 12.6 10^3/uL (1.5-8.5); NEUTROPHILS % 81.6 % (36.0-66.0); PLATELET COUNT, AUTOMATED 195 10^3/uL (150-450); RED BLOOD COUNT 4.88 10^6/uL (4.00-5.40); WHITE BLOOD COUNT 15.4 10^3/uL (4.0-10.0)
[2021-05-29 13:59] LABS: C REACTIVE PROTEIN QUANTITATIV 12.8 MG/DL (0.00-0.30); CALCIUM LEVEL 8.6 MG/DL (8.8-10.2); CREATININE FOR GFR 1.3 MG/DL (0.55-1.30); GLOMERULAR FILTRATION RATE 41.2 (>32); POTASSIUM SERUM 3.8 MEQ/L (3.5-5.1)
[2021-05-29 14:08] LABS: ERYTHROCYTE SEDIMENTATION RATE 75 mm/hr (0-30)
--- NOTE | 2021-05-29 15:21 | REP ---
INDICATION: leukocytosis and cough, assess for infiltrate. COMPARISON: 05/23/2021. TECHNIQUE: Single portable AP view of the chest was performed. FINDINGS: There is stable cardiomegaly. There is calcification and tortuosity of the thoracic aorta. The mediastinal silhouette is unchanged. No acute infiltrate is seen. Left pacemaker is unchanged. IMPRESSION: No acute pulmonary disease.Cardiomegaly. <Electronically signed by Joao Arizmendi > 05/29/21 [id number]
[2021-05-29] MEDS ORDERED: ISOVUE-370 76% 100ML VIAL As Ordered ONE (15:46)
[2021-05-29] MEDS ORDERED: VENTAER INH (16:10)
[2021-05-29] MEDS ORDERED: BISA10SU20 PR (16:10)
[2021-05-29] MEDS ORDERED: QC A650T3 PO (16:10)
[2021-05-29] MEDS ORDERED: FLEEENE12 PR (16:10)
[2021-05-29] MEDS ORDERED: SENN-122 PO (16:10)
[2021-05-29] MEDS ORDERED: MILKSUS3 PO (16:10)
[2021-05-29] MEDS ORDERED: K-TA10TA PO (16:10)
[2021-05-29] MEDS ORDERED: ACET650T61 PO (16:10)
[2021-05-29] MEDS ORDERED: GLUC1KIT IM (16:10)
[2021-05-29] MEDS ORDERED: ACET1TAB55 PO (16:23)
[2021-05-29] MEDS ORDERED: HOME MED LIST COMPLETE! XX SCH ×2 (16:25→17:45)
--- NOTE | 2021-05-29 17:07 | REPVR ---
PROCEDURE INFORMATION: Exam: CT Neck With Contrast Exam date and time: 05/29/2021 3:50 PM Age: 86 years old Clinical indication: Neck pain; Additional info: Right neack pain and swelling just under the ear TECHNIQUE: Imaging protocol: Computed tomography images of the neck with contrast. Radiation optimization: All CT scans at this facility use at least one of these dose optimization techniques: automated exposure control; mA and/or kV adjustment per patient size (includes targeted exams where dose is matched to clinical indication); or iterative reconstruction. Contrast material: ISOVUE 370; Contrast volume: 75 ml; Contrast route: INTRAVENOUS (IV); COMPARISON: CT Neck with contrast 10/26/2019 1:28 PM FINDINGS: Nasopharynx: Unremarkable. Oropharynx: Unremarkable. No significant tonsillar enlargement. Hypopharynx: Unremarkable. Larynx: Unremarkable. Normal epiglottis. Retropharyngeal space: Unremarkable. Submandibular/Parotid glands: Right parotid gland is enlarged and heterogenous with fat stranding in the surrounding subcutaneous tissues. Thyroid: Normal. No enlarged or calcified nodules. Lymph nodes: Unremarkable. No lymphadenopathy. Trachea: Visualized trachea is unremarkable. Lungs: Unremarkable as visualized. Bones/joints: Unremarkable. No acute fracture. Soft tissues: Unremarkable. No significant soft tissue swelling. IMPRESSION: Findings likely representing acute right parotitis. Electronically signed by: Hitesh Croft On 05/29/2021 17:07:25 PM
[2021-05-29] MEDS ORDERED: AMPICILLIN SOD/SULBACTAM SOD 3 GM in D5W MINI-BAG PLUS 100 ML IV ONE (17:45)
[2021-05-29] MEDS ORDERED: ACETAMINOPHEN 325 MG TAB PO PRN (18:50)
[2021-05-29] MEDS ORDERED: FLEET ENEMA PR PRN (18:50)
[2021-05-29] MEDS ORDERED: MOM 30ML SUSPENSION UDC PO PRN (18:50)
[2021-05-29] MEDS ORDERED: GLUCAGON INJ 1MG VIAL IM PRN (18:50)
[2021-05-29] MEDS ORDERED: NS 500 ML IV ONE (18:50)
[2021-05-29] MEDS ORDERED: BISACODYL 10 MG SUPP PR PRN (18:50)
[2021-05-29] MEDS ORDERED: ALBUTEROL 90 MCG/ACT 8GM HFA INHALER INH PRN (18:50)
[2021-05-29] MEDS ORDERED: ACETAMINOPHEN TAB 650MG DOSE (2X325MG) PO PRN (19:25)
[2021-05-29 19:45] LABS: RSV AMPLIFICATION NEGATIVE (NEGATIVE)
--- NOTE | 2021-05-29 20:01 | HPEPDOC ---
[facility] Medical History & Physical Date of Admission May 29, 2021 Date of Service: May 29, 2021 History and Physical CHIEF COMPLAINT: Right-sided parotitis HISTORY OF PRESENT ILLNESS: Patient is a resident of the [facility]. She developed parotitis few days ago, it appears that she had a single dose of Rocephin IM, and there is an order for ertapenem, but it is unclear according to documentation I have that she has received any at this time. It appears that she was sent to the emergency department for further evaluation instead because she has not been improving. Clinically she also appears dehydrated. History is difficult to obtain due to underlying dementia, but I suspect that she may have been having some poor oral intake as well. 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 Denies alcohol or drug use. FAMILY HISTORY: Noncontributory REVIEW OF SYSTEMS: Review of systems is somewhat difficult to obtain due to the patient's underlying dementia. She states that she is cold, perhaps she had chills, but she does not think that she had any fevers. She does have significant pain on the right side of her face/neck underneath her right ear in the region of the right parotid gland. She states that she is able to eat and drink, but given her clinical examination I wonder if this is accurate. PHYSICAL EXAMINATION: General: Awake, alert, she does not appear to be in any acute distress. HEENT: Head normocephalic atraumatic, conjunctiva are pink, sclera are nonicteric, tongue is very dry. Significant erythema and swelling of the right parotid gland. This is exquisitely tender even to light palpation. Hearing is grossly intact to conversation. Respiratory: Clear to auscultation bilaterally with no wheezes, rales, or rhonchi. Cardiovascular: Regular rate and rhythm, with no rubs, gallops, or murmur. Abdomen: Soft, nontender, nondistended, no hepatosplenomegaly appreciated. Bowel sounds present. Extremities: 2+ pulses in the radial and dorsalis pedis bilaterally. No evidence of clubbing or cyanosis. IMAGING: CT neck with contrast Impression: Findings likely representing acute right parotitis ASSESSMENT/PLAN: Acute right parotitis Prerenal azotemia -Failed outpatient treatment with single dose of Rocephin IM -Start Unasyn 3 g every 6 hours -Due to dehydration and elevated BUN, will give a 500 cc bolus of fluids, however will need to be cautious regarding fluid administration due to history of chronic systolic and diastolic CHF. Otherwise, we will continue with the remainder of her home medications for her chronic medical conditions as listed. Vital Signs Vital Signs Date Time Temp Pulse Resp B/P (MAP) Pulse Ox O2 Delivery O2 Flow Rate FiO2 05/29/21 19:24 66 96 05/29/21 19:15 142/67 (92) 05/29/21 16:54 98.3 19 Room Air Laboratory Data Labs 24H Laboratory Tests 2 05/29/21 13:23: Immature Granulocyte % (Auto) 0.8, Neutrophils (%) (Auto) 81.6H, Lymphocytes (%) (Auto) 9.6L, Monocytes (%) (Auto) 4.8, Eosinophils (%) (Auto) 2.7, Basophils (%) (Auto) 0.5, Neutrophils # (Auto) 12.6H, Lymphocytes # (Auto) 1.5, Monocytes # (Auto) 0.7, Eosinophils # (Auto) 0.4, Basophils # (Auto) 0.1, Nucleated Red Blood Cells % (auto) 0.0, Erythrocyte Sedimentation Rate 75H, Anion Gap 7L, Glomerular Filtration Rate 41.2, Calcium Level 8.6L, C-Reactive Protein, Quantitative 12.80H 05/29/21 17:22: Urine Color YELLOW, Urine Appearance HAZY, Urine pH 6.0, Urine Specific [place] 1.030, Urine Protein 1+H, Urine Glucose (UA) NEGATIVE, Urine Ketones NEGATIVE, Urine Blood 1+H, Urine Nitrite POSITIVEH, Urine Bilirubin NEGATIVE, Urine Urobilinogen 0.2, Urine Leukocyte Esterase 3+H, Urine WBC (Auto) 32H, Urine RBC (Auto) 11H, Urine Hyaline Casts (Auto) 1, Urine Bacteria (Auto) NEGATIVE, Urine Squamous Epithelial Cells 0, Urine Mucus (Auto) SMALL, Urine Sperm (Auto) 05/29/21 18:54: Coronavirus (COVID-19)(PCR) NEGATIVE, Influenza Type A (RT-PCR) NEGATIVE, Influenza Type B (RT-PCR) NEGATIVE, Respiratory Syncytial Virus (PCR) NEGATIVE CBC/BMP Laboratory Tests 05/29/21 13:23 Microbiology Microbiology 05/29/21 Urine Culture, Received Pending Home Medications Scheduled Aspirin (Aspirin EC) 81 Mg Tab, 81 MG PO DAILY Atorvastatin Calcium (Atorvastatin Calcium) 20 Mg Tab, 20 MG PO QHS Buspirone HCl (Buspirone HCl) 10 Mg Tablet, 10 MG PO TID Cyanocobalamin (Vitamin B-12) (B-12 Dots) 500 Mcg Tablet, 500 MCG PO DAILY Cyclosporine (Restasis Multidose) 0.05 % Emu, 1 DROP OU BID Furosemide (Furosemide) 40 Mg Tablet, 60 MG PO DAILY ON HOLD UNTIL 05/31/21 Latanoprost (Xalatan) 0.005 % Meryl, 1 DROP OU QHS Potassium Chloride (Potassium Chloride) 10 Meq Tab.er.prt, 10 MEQ PO DAILY Potassium Chloride (K-Tab ER) 10 Meq Tablet.er, 10 MEQ PO DAILY RESTART 05/31/21 Quetiapine Fumarate (Quetiapine Fumarate) 25 Mg Tablet, 25 MG PO TID Salmeterol/Fluticasone (Advair 250-50 Diskus) 1 Each Blst.w.dev, 1 PUFF INH BID Sennosides/Docusate Sodium (Senna-S 8.6-50 mg Tablet) 8.6 Mg-50 Mg Tablet, 8.6 MG PO BID Sertraline HCl (Sertraline HCl) 50 Mg Tablet, 50 MG PO QHS Sitagliptin Phosphate (Januvia) 25 Mg Tab, 25 MG PO DAILY Spironolactone (Spironolactone) 25 Mg Tablet, 12.5 MG PO DAILY ON HOLD UNTIL 05/31/21 Scheduled PRN Acetaminophen (Tylenol Arthritis) 650 Mg Tablet.er, 650 MG PO BID PRN for PAIN LEVEL 1-4 Acetaminophen (Acetaminophen) 325 Mg Tablet, 650 MG PO Q4H PRN for FEVER Albuterol Sulfate (Ventolin Hfa) 18 Gm Hfa.aer.ad, 2 PUFF INH Q4H PRN for SOB/WHEEZING Bisacodyl (Bisacodyl) 10 Mg Supp.rect, 10 MG CO DAILY PRN for CONSTIPATION Ertapenem Sodium (Ertapenem) 1 Gm Vial, 1 GM IV QHS PRN for PAROTITIS for 6 days, finish date 06/03/21 Glucagon,Human Recombinant (Glucagon Emergency Kit) 1 Mg Vial, 1 MG IM ASDIRECTED PRN for LOW BLOOD SUGAR FSBS LESS THAN 60 Magnesium Hydroxide (Milk of Magnesia) 400 Mg/5 Ml Oral.susp, 30 ML PO DAILY PRN for CONSTIPATION Sodium Phosphate,Bailey-Dibasic (Fleet Enema) 133 Ml Enema, 1 HAY[place] CO DAILY PRN for CONSTIPATION Allergies Coded Allergies: Sulfa (Sulfonamide Antibiotics) (Verified Allergy, Unknown, 12/19/18) codeine (Verified Allergy, Unknown, 12/19/18) doxycycline (Verified Allergy, Unknown, 12/19/18) streptomycin (Verified Allergy, Unknown, 12/19/18) A-FIB/CHADSVASC A-FIB History Current/History of A-Fib/PAF?: No MARIVEL KILGORE DO May 29, 2021 20:01
[2021-05-29] MEDS: ADVAIR HFA 115/21MCG INHALER INH SCH (21:40)
[2021-05-29 21:49] VITALS: BP 126/77
[2021-05-29] MEDS: QUEtiapine FUMARATE 25 MG TAB PO SCH (22:08)
[2021-05-29] MEDS: busPIRone 10 MG TAB PO SCH (22:08)
[2021-05-29] MEDS: ATORVASTATIN 20 MG TAB PO SCH (22:09)
[2021-05-29] MEDS: SERTRALINE HCL 50 MG TAB PO SCH (22:09)
[2021-05-29] MEDS: ACETAMINOPHEN 650MG ER TAB (TYLENOL ARTHRITIS) PO PRN (22:09)
[2021-05-29] MEDS: SENOKOT S TAB PO SCH (22:09)
[2021-05-30] MEDS ORDERED: AMPICILLIN SOD/SULBACTAM SOD 3 GM in D5W MINI-BAG PLUS 100 ML IV SCH ×2
[2021-05-30] MEDS: LATANOPROST 0.005% OPHTH SOLN 2.5 ML OU SCH ×2 (00:33→20:32)
[2021-05-30] MEDS: AMPICILLIN SOD/SULBACTAM SOD 3 GM in D5W MINI-BAG PLUS 100 ML IV SCH ×5 (00:33→18:39)
[2021-05-30 05:25] LABS: HEMATOCRIT 40.8 % (36.0-47.0); HEMOGLOBIN 12.6 g/dl (12.0-15.5); MEAN CORPUSCULAR HEMOGLOBIN 25.9 pg (27.0-33.0); MEAN CORPUSCULAR HGB CONC 30.9 g/dl (32.0-36.5); MEAN CORPUSCULAR VOLUME 83.8 fl (80.0-96.0); PLATELET COUNT, AUTOMATED 214 10^3/uL (150-450); RED BLOOD COUNT 4.87 10^6/uL (4.00-5.40); WHITE BLOOD COUNT 14.1 10^3/uL (4.0-10.0)
[2021-05-30 05:37] VITALS: BP 101/62
[2021-05-30 05:48] LABS: CALCIUM LEVEL 8.3 MG/DL (8.8-10.2); CREATININE FOR GFR 1.41 MG/DL (0.55-1.30); GLOMERULAR FILTRATION RATE 37.6 (>32); POTASSIUM SERUM 3.5 MEQ/L (3.5-5.1)
[2021-05-30] MEDS: ADVAIR HFA 115/21MCG INHALER INH SCH ×2 (08:00→18:15)
[2021-05-30] MEDS: FUROSEMIDE 20 MG TAB PO SCH (09:00)
[2021-05-30] MEDS ORDERED: POTASSIUM CHLORIDE 10MEQ SR TABLET PO SCH (09:00)
[2021-05-30] MEDS: SPIRONOLACTONE 12.5MG PER 1/2 TABLET PO SCH (10:20)
[2021-05-30] MEDS: busPIRone 10 MG TAB PO SCH ×3 (10:20→20:25)
[2021-05-30] MEDS: ASPIRIN 81MG ENTERIC TABLET PO SCH (10:20)
[2021-05-30] MEDS: CYANOCOBALAMIN 500 MCG TAB PO SCH (10:21)
[2021-05-30] MEDS: SENOKOT S TAB PO SCH ×2 (10:21→20:25)
[2021-05-30] MEDS: SITagliptin 50 MG TAB (JANUVIA) PO SCH (10:21)
[2021-05-30] MEDS: QUEtiapine FUMARATE 25 MG TAB PO SCH ×3 (10:21→20:25)
[2021-05-30] MEDS: POTASSIUM CHLORIDE 10MEQ SR TABLET PO SCH (10:21)
[2021-05-30] MEDS: ENOXAPARIN 30MG/0.3ML SYRINGE (J1650 PER 10MG) SC SCH (10:22)
[2021-05-30] MEDS ORDERED: FUROSEMIDE 20 MG TAB PO ONE (11:50)
[2021-05-30 14:00] VITALS: BP 91/63
--- NOTE | 2021-05-30 18:48 | IPNPDOC ---
Text Note Date of Service The patient was seen on 05/30/21. NOTE Hospitalist Progress Note Subjective: Patient feels as though her face is improved, but on examination is still quite swollen and edematous, and it is still very tender to the touch. Otherwise, the remainder of her review of systems is apparently negative, it is somewhat dif ficult to obtain due to her underlying dementia. Objective: General: Awake, alert. Not in any acute distress. HEENT: Head normocephalic, atraumatic, sclera are nonicteric. Hearing is grossly intact to conversation. Right parotid gland remains swollen and erythematous, and tender to even the lightest touch. The patient reports that she seems to be feeling a little bit better though. Respiratory: Clear to auscultation bilaterally with no wheezes, rales, or rhonchi. Cardiovascular: Regular rate and rhythm, with no rubs, gallops, or murmur. Abdomen: Soft, nontender, nondistended, no hepatosplenomegaly appreciated. Bowel sounds present. Extremities: 2+ pulses in the radial and dorsalis pedis bilaterally. No evidence of clubbing or cyanosis. Assessment/Plan: Acute right-sided parotitis -Continue Unasyn 3 g every 6 hours -Continues to have leukocytosis, although trending down -Low-grade fever of 99.1 last night. Prerenal azotemia Dehydration History of combined systolic and diastolic congestive heart failure -Given 500 cc bolus of fluid last night -Typically she is on Lasix 60 mg daily, will give her 30 mg today and see how she does -BUN slightly improved from yesterday, however creatinine is slightly worse. -Continue spironolactone Hypertension -Continue statin Dyslipidemia -Continue statin Coronary artery disease -Continue aspirin, statin Type 2 diabetes mellitus -Continue sitagliptin Anxiety Depression Dementia -Continue sertraline -Continue BuSpar -Continue Seroquel Glaucoma -Continue latanoprost DVT prophylaxis -Lovenox VS,Fishbone, I+O VS, Fishbone, I+O Laboratory Tests 05/30/21 04:39 Vital Signs Date Time Temp Pulse Resp B/P (MAP) Pulse Ox O2 Delivery O2 Flow Rate FiO2 05/30/21 14:00 97.6 58 15 91/63 (72) 100 Room Air I&O- Last 24 Hours up to 6 AM 05/30/21 06:00 Intake Total 1200 ml Output Total 750 ml Balance 450 ml MARIVEL KILGORE DO May 30, 2021 18:48
[2021-05-30 20:00] VITALS: BP 100/61
[2021-05-30] MEDS: ATORVASTATIN 20 MG TAB PO SCH (20:25)
[2021-05-30] MEDS: SERTRALINE HCL 50 MG TAB PO SCH (20:25)
[2021-05-30] MEDS: ACETAMINOPHEN 650MG ER TAB (TYLENOL ARTHRITIS) PO PRN (20:26)
[2021-05-31] MEDS: AMPICILLIN SOD/SULBACTAM SOD 3 GM in D5W MINI-BAG PLUS 100 ML IV SCH ×4 (00:27→16:54)
[2021-05-31 06:15] VITALS: BP 111/73
[2021-05-31] MEDS: ADVAIR HFA 115/21MCG INHALER INH SCH ×2 (07:52→20:14)
[2021-05-31 08:50] LABS: HEMATOCRIT 38.5 % (36.0-47.0); HEMOGLOBIN 11.9 g/dl (12.0-15.5); MEAN CORPUSCULAR HEMOGLOBIN 25.9 pg (27.0-33.0); MEAN CORPUSCULAR HGB CONC 30.9 g/dl (32.0-36.5); MEAN CORPUSCULAR VOLUME 83.7 fl (80.0-96.0); PLATELET COUNT, AUTOMATED 214 10^3/uL (150-450); WHITE BLOOD COUNT 11.2 10^3/uL (4.0-10.0)
[2021-05-31] MEDS: ENOXAPARIN 30MG/0.3ML SYRINGE (J1650 PER 10MG) SC SCH ×2 (09:00→09:20)
[2021-05-31 09:14] LABS: C REACTIVE PROTEIN QUANTITATIV 7.22 MG/DL (0.00-0.30); CALCIUM LEVEL 8.2 MG/DL (8.8-10.2); CREATININE FOR GFR 1.46 MG/DL (0.55-1.30); GLOMERULAR FILTRATION RATE 36.1 (>32)
[2021-05-31] MEDS: QUEtiapine FUMARATE 25 MG TAB PO SCH ×3 (09:19→20:19)
[2021-05-31] MEDS: SITagliptin 50 MG TAB (JANUVIA) PO SCH (09:19)
[2021-05-31] MEDS: busPIRone 10 MG TAB PO SCH ×3 (09:19→20:19)
[2021-05-31] MEDS: CYANOCOBALAMIN 500 MCG TAB PO SCH (09:19)
[2021-05-31] MEDS: ACETAMINOPHEN 650MG ER TAB (TYLENOL ARTHRITIS) PO PRN ×2 (09:19→20:19)
[2021-05-31] MEDS: SPIRONOLACTONE 12.5MG PER 1/2 TABLET PO SCH (09:20)
[2021-05-31] MEDS: ASPIRIN 81MG ENTERIC TABLET PO SCH (09:20)
[2021-05-31] MEDS: POTASSIUM CHLORIDE 10MEQ SR TABLET PO SCH (09:20)
[2021-05-31] MEDS: SENOKOT S TAB PO SCH ×2 (09:20→20:19)
[2021-05-31] MEDS: FUROSEMIDE 20 MG TAB PO SCH (09:20)
--- NOTE | 2021-05-31 11:20 | IPNPDOC ---
Text Note Date of Service The patient was seen on 05/31/21. NOTE Hospitalist Progress Note Subjective: Patient reports that she is actually feeling quite well this morning. She feels as though her right-sided parotitis is less tender. She was able to eat breakfast without any pain. It is still exquisitely tender to palpate, however it is less erythematous and less hot today. Objective: General: Awake, alert. Not in any acute distress. HEENT: Head normocephalic, atraumatic, sclera are nonicteric. Hearing is grossly intact to conversation. Right parotid gland remains swollen and mildly erythematous, and continues to be tender to even the lightest touch. Respiratory: Clear to auscultation bilaterally with no wheezes, rales, or rhonc hi. Cardiovascular: Regular rate and rhythm, with no rubs, gallops, or murmur. Abdomen: Soft, nontender, nondistended, no hepatosplenomegaly appreciated. Bowel sounds present. Extremities: 2+ pulses in the radial and dorsalis pedis bilaterally. No evidence of clubbing or cyanosis. Assessment/Plan: Acute right-sided parotitis -Continue Unasyn 3 g every 6 hours -Continues to have leukocytosis, although trending down, almost into the normal range -CRP is also trending down -Anticipate 1 more day of IV antibiotics, then probably switch over to oral in the morning if patient continues to improve. Prerenal azotemia Dehydration History of combined systolic and diastolic congestive heart failure -BUN/creatinine still slightly elevated. Will switch her from 60 mg of Lasix daily to 20 mg daily while inpatient for now. Would anticipate returning her back to her home dose upon discharge. -Continue spironolactone Hypertension -Continue statin Dyslipidemia -Continue statin Coronary artery disease -Continue aspirin, statin Type 2 diabetes mellitus -Continue sitagliptin Anxiety Depression Dementia -Continue sertraline -Continue BuSpar -Continue Seroquel Glaucoma -Continue latanoprost DVT prophylaxis -Lovenox VS,Fishbone, I+O VS, Fishbone, I+O Laboratory Tests 05/31/21 08:37 Vital Signs Date Time Temp Pulse Resp B/P (MAP) Pulse Ox O2 Delivery O2 Flow Rate FiO2 05/31/21 06:15 98.9 84 18 111/73 (86) 97 Room Air I&O- Last 24 Hours up to 6 AM 05/31/21 06:00 Intake Total 1360 ml Output Total 800 ml Balance 560 ml MARIVEL KILGORE DO May 31, 2021 11:19
[2021-05-31 14:00] VITALS: BP 115/59
[2021-05-31] MEDS: ATORVASTATIN 20 MG TAB PO SCH (20:19)
[2021-05-31] MEDS: SERTRALINE HCL 50 MG TAB PO SCH (20:19)
[2021-05-31] MEDS: LATANOPROST 0.005% OPHTH SOLN 2.5 ML OU SCH (20:19)
[2021-05-31 22:00] VITALS: BP 124/62
[2021-06-01] MEDS: AMPICILLIN SOD/SULBACTAM SOD 3 GM in D5W MINI-BAG PLUS 100 ML IV SCH ×2 (00:36→06:04)
[2021-06-01 05:47] LABS: HEMATOCRIT 37.2 % (36.0-47.0); HEMOGLOBIN 11.6 g/dl (12.0-15.5); MEAN CORPUSCULAR HEMOGLOBIN 25.8 pg (27.0-33.0); MEAN CORPUSCULAR HGB CONC 31.2 g/dl (32.0-36.5); MEAN CORPUSCULAR VOLUME 82.7 fl (80.0-96.0); PLATELET COUNT, AUTOMATED 216 10^3/uL (150-450); WHITE BLOOD COUNT 9.2 10^3/uL (4.0-10.0)
[2021-06-01 06:00] VITALS: BP 97/60
[2021-06-01 06:08] LABS: C REACTIVE PROTEIN QUANTITATIV 4.69 MG/DL (0.00-0.30); CALCIUM LEVEL 8.1 MG/DL (8.8-10.2); CREATININE FOR GFR 1.57 MG/DL (0.55-1.30); GLOMERULAR FILTRATION RATE 33.2 (>32); POTASSIUM SERUM 4.1 MEQ/L (3.5-5.1)
[2021-06-01] MEDS: ADVAIR HFA 115/21MCG INHALER INH SCH ×2 (07:50→21:00)
[2021-06-01] MEDS ORDERED: SODIUM CHLORIDE 0.9% 1000ML IV ONE (08:30)
[2021-06-01] MEDS ORDERED: AMOXICILLIN SUSP 250MG/5ML 100ML BOTTLE (FOR INPATIENT ORDERS) PO SCH (09:00)
[2021-06-01] MEDS ORDERED: FUROSEMIDE 20 MG TAB PO SCH (09:00)
[2021-06-01] MEDS: QUEtiapine FUMARATE 25 MG TAB PO SCH ×3 (09:01→20:01)
[2021-06-01] MEDS: POTASSIUM CHLORIDE 10MEQ SR TABLET PO SCH (09:01)
[2021-06-01] MEDS: CYANOCOBALAMIN 500 MCG TAB PO SCH (09:01)
[2021-06-01] MEDS: ENOXAPARIN 30MG/0.3ML SYRINGE (J1650 PER 10MG) SC SCH (09:01)
[2021-06-01] MEDS: ASPIRIN 81MG ENTERIC TABLET PO SCH (09:01)
[2021-06-01] MEDS: SITagliptin 50 MG TAB (JANUVIA) PO SCH (09:01)
[2021-06-01] MEDS: busPIRone 10 MG TAB PO SCH ×3 (09:01→20:01)
[2021-06-01] MEDS: SENOKOT S TAB PO SCH ×2 (09:01→20:01)
[2021-06-01] MEDS ORDERED: GLUCOSE 4GM CHEW TABLET PO PRN (12:05)
[2021-06-01] MEDS ORDERED: DEXTROSE 50% 50 ML SYRINGE IV PRN (12:05)
--- NOTE | 2021-06-01 12:15 | IPNPDOC ---
Text Note Date of Service The patient was seen on 06/01/21. NOTE Hospitalist Progress Note Subjective: Patient once again does not have any complaints at this time. Her right parotid gland swelling has improved, but is still visible. She was able to eat her meals yesterday without any pain. No fevers overnight. She does not have any complaints at this time, and remainder review of systems is negative. Objective: General: Awake, alert. Not in any acute distress. HEENT: Head normocephalic, atraumatic, sclera are nonicteric. Hearing is grossly intact to conversation. Right parotid gland remains still visibly swollen, but significantly improved from the past few days. Erythema has essentially resolved. 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 Respiratory: Clear to auscultation bilaterally with no wheezes, rales, or rhonchi. Cardiovascular: Regular rate and rhythm, with no rubs, gallops, or murmur. Abdomen: Soft, nontender, nondistended, no hepatosplenomegaly appreciated. Bowel sounds present. Extremities: 2+ pulses in the radial and dorsalis pedis bilaterally. No evidence of clubbing or cyanosis. Assessment/Plan: Acute right-sided parotitis -Her erythema has essentially resolved, although the swelling is still somewhat present. Her leukocytosis has also resolved, white count is now within normal range. CRP is still elevated but continues to trending down. Will discontinue IV antibiotics and switch her over to amoxicillin. -Technically the appropriate dose for amoxicillin 500 mg is 3 times daily, however for renal dosing we will go with 500 mg twice daily at this time. Prerenal azotemia Dehydration Acute kidney injury History of combined systolic and diastolic congestive heart failure -Renal function continues to decline slowly. We will completely discontinue La six and spironolactone today. I ordered 500 cc bolus of normal saline, but her IV was nonfunctional. Since we just discontinue her IV antibiotics, we will also hold the bolus of saline as well, especially given her history of combined systolic and diastolic congestive heart failure, I certainly would not want to fluid overload her. We will proceed with just discontinuing her diuretics only. Hypertension -Antihypertensives have been discontinued Dyslipidemia -Continue statin Coronary artery disease -Continue aspirin, statin Type 2 diabetes mellitus -We will discontinue sitagliptin, and continue with insulin while inpatient. Anxiety Depression Dementia -Continue sertraline -Continue BuSpar -Continue Seroquel Glaucoma -Continue latanoprost DVT prophylaxis -Lovenox VS,Fishbone, I+O VS, Fishbone, I+O Laboratory Tests 06/01/21 05:18 Vital Signs Date Time Temp Pulse Resp B/P (MAP) Pulse Ox O2 Delivery O2 Flow Rate FiO2 06/01/21 06:00 97.7 70 18 97/60 (72) 95 Room Air I&O- Last 24 Hours up to 6 AM 06/01/21 06:00 Intake Total 360 ml Output Total 500 ml Balance -140 ml MARIVEL KILGORE DO Jun 01, 2021 12:15
[2021-06-01 14:00] VITALS: BP 130/68
[2021-06-01 15:26] LABS: CREATININE FOR GFR 1.75 MG/DL (0.55-1.30); GLOMERULAR FILTRATION RATE 29.3 (>32)
[2021-06-01] MEDS: HumaLOG INSULIN (NovoLOG) PER UNIT SC SCH ×2 (17:01→20:06)
[2021-06-01 19:50] VITALS: BP 117/53
[2021-06-01] MEDS: ATORVASTATIN 20 MG TAB PO SCH (20:01)
[2021-06-01] MEDS: SERTRALINE HCL 50 MG TAB PO SCH (20:01)
[2021-06-01] MEDS: ACETAMINOPHEN 650MG ER TAB (TYLENOL ARTHRITIS) PO PRN (20:01)
[2021-06-01] MEDS: AMOXICILLIN SUSP 250MG/5ML 100ML BOTTLE (FOR INPATIENT ORDERS) PO SCH (20:02)
[2021-06-01] MEDS: LATANOPROST 0.005% OPHTH SOLN 2.5 ML OU SCH (20:02)
[2021-06-02 06:00] VITALS: BP_SYST 116; BP_SYST 136; BP_DIAS 54; BP_DIAS 74
[2021-06-02] MEDS ORDERED: SODIUM CHLORIDE 0.9% 1000ML IV ONE (07:15)
[2021-06-02] MEDS: ADVAIR HFA 115/21MCG INHALER INH SCH ×2 (08:20→20:39)
[2021-06-02] MEDS: ENOXAPARIN 30MG/0.3ML SYRINGE (J1650 PER 10MG) SC SCH (09:03)
[2021-06-02] MEDS: ASPIRIN 81MG ENTERIC TABLET PO SCH (09:04)
[2021-06-02] MEDS: CYANOCOBALAMIN 500 MCG TAB PO SCH (09:04)
[2021-06-02] MEDS: SENOKOT S TAB PO SCH ×2 (09:04→20:49)
[2021-06-02] MEDS: AMOXICILLIN SUSP 250MG/5ML 100ML BOTTLE (FOR INPATIENT ORDERS) PO SCH ×2 (09:04→20:49)
[2021-06-02] MEDS: POTASSIUM CHLORIDE 10MEQ SR TABLET PO SCH (09:05)
[2021-06-02] MEDS: QUEtiapine FUMARATE 25 MG TAB PO SCH ×3 (09:05→20:49)
[2021-06-02] MEDS: busPIRone 10 MG TAB PO SCH ×3 (09:05→20:49)
[2021-06-02] MEDS: HumaLOG INSULIN (NovoLOG) PER UNIT SC SCH ×4 (09:41→20:40)
[2021-06-02 10:58] LABS: HEMATOCRIT 36.9 % (36.0-47.0); HEMOGLOBIN 11.3 g/dl (12.0-15.5); MEAN CORPUSCULAR HEMOGLOBIN 25.7 pg (27.0-33.0); MEAN CORPUSCULAR HGB CONC 30.6 g/dl (32.0-36.5); MEAN CORPUSCULAR VOLUME 84.1 fl (80.0-96.0); PLATELET COUNT, AUTOMATED 197 10^3/uL (150-450); RED BLOOD COUNT 4.39 10^6/uL (4.00-5.40); WHITE BLOOD COUNT 8.2 10^3/uL (4.0-10.0)
[2021-06-02 12:23] LABS: C REACTIVE PROTEIN QUANTITATIV 3.81 MG/DL (0.00-0.30); CALCIUM LEVEL 8.5 MG/DL (8.8-10.2); CREATININE FOR GFR 1.81 MG/DL (0.55-1.30); GLOMERULAR FILTRATION RATE 28.2 (>32); POTASSIUM SERUM 4.1 MEQ/L (3.5-5.1)
[2021-06-02 14:00] VITALS: BP 109/46
[2021-06-02 14:55] LABS: CREATININE FOR GFR 1.65 MG/DL (0.55-1.30); GLOMERULAR FILTRATION RATE 31.3 (>32)
[2021-06-02] MEDS ORDERED: SODIUM CHLORIDE 0.9% 500 ML IV ONE (18:20)
--- NOTE | 2021-06-02 19:25 | IPNPDOC ---
Text Note Date of Service The patient was seen on 06/02/21. NOTE Hospitalist Progress Note Subjective: Patient was refusing labs and placement of an IV this morning, however after I discussed the situation with her, she is agreeable to having both performed. The swelling of her right parotid gland continues to improve, but is still visibly present. The erythema has essentially completely resolved. Tenderness is also improved today, I am able to at least gently touch her parotid gland, anything more than mild pressure causes her pain. Objective: General: Awake, alert. Not in any acute distress. HEENT: Head normocephalic, atraumatic, sclera are nonicteric. Hearing is grossly intact to conversation. Right parotid gland has been trying to get daily as described above. Respiratory: Clear to auscultation bilaterally with no wheezes, rales, or rhonchi. Cardiovascular: Regular rate and rhythm, with no rubs, gallops, or murmur. Abdomen: Soft, nontender, nondistended, no hepatosplenomegaly appreciated. Bowel sounds present. Extremities: 2+ pulses in the radial and dorsalis pedis bilaterally. No evidence of clubbing or cyanosis. Assessment/Plan: Acute right-sided parotitis -Continues to do well on amoxicillin. White count was normal yesterday, CRP continues to trend down. Clinically she appears to be improving. -Technically the appropriate dose for amoxicillin 500 mg is 3 times daily, however for renal dosing we will go with 500 mg twice daily Prerenal azotemia Dehydration Acute kidney injury History of combined systolic and diastolic congestive heart failure -500 cc bolus of normal saline was administered this morning, and repeat BUN/creatinine this afternoon does show some improvement, but it is not entirely returned back to baseline. Another 500 cc bolus of normal saline is ordered tonight, we will repeat labs in the morning. Hypertension -Antihypertensives have been discontinued Dyslipidemia -Continue statin Coronary artery disease -Continue aspirin, statin Type 2 diabetes mellitus -We will discontinue sitagliptin, and continue with insulin while inpatient. Anxiety Depression Dementia -Continue sertraline -Continue BuSpar -Continue Seroquel Glaucoma -Continue latanoprost DVT prophylaxis -Lovenox Disposition: Patient is doing well clinically on oral amoxicillin. Likely will be ready for discharge once DARIEN is resolved. VS,Fishbone, I+O VS, Fishbone, I+O Laboratory Tests 06/02/21 10:14 06/02/21 14:17 Vital Signs Date Time Temp Pulse Resp B/P (MAP) Pulse Ox O2 Delivery O2 Flow Rate FiO2 06/02/21 14:00 99.1 76 18 109/46 (67) 95 06/02/21 06:00 Room Air I&O- Last 24 Hours up to 6 AM 06/02/21 06:00 Intake Total 1270 ml Output Total 425 ml Balance 845 ml MARIVEL KILGORE DO Jun 02, 2021 19:25
[2021-06-02] MEDS: ATORVASTATIN 20 MG TAB PO SCH (20:49)
[2021-06-02] MEDS: LATANOPROST 0.005% OPHTH SOLN 2.5 ML OU SCH (20:49)
[2021-06-02] MEDS: SERTRALINE HCL 50 MG TAB PO SCH (20:49)
[2021-06-02] MEDS: ACETAMINOPHEN 650MG ER TAB (TYLENOL ARTHRITIS) PO PRN (20:49)
[2021-06-02 22:00] VITALS: BP 114/61
[2021-06-03 06:00] VITALS: BP 137/60
[2021-06-03 06:44] LABS: HEMOGLOBIN 11.3 g/dl (12.0-15.5); MEAN CORPUSCULAR HEMOGLOBIN 25.7 pg (27.0-33.0); MEAN CORPUSCULAR HGB CONC 30.5 g/dl (32.0-36.5); MEAN CORPUSCULAR VOLUME 84.3 fl (80.0-96.0); PLATELET COUNT, AUTOMATED 194 10^3/uL (150-450); RED BLOOD COUNT 4.39 10^6/uL (4.00-5.40); WHITE BLOOD COUNT 6.7 10^3/uL (4.0-10.0)
[2021-06-03 07:10] LABS: C REACTIVE PROTEIN QUANTITATIV 2.96 MG/DL (0.00-0.30); CALCIUM LEVEL 8.2 MG/DL (8.8-10.2); CREATININE FOR GFR 1.56 MG/DL (0.55-1.30); GLOMERULAR FILTRATION RATE 33.4 (>32); POTASSIUM SERUM 4.4 MEQ/L (3.5-5.1)
[2021-06-03] MEDS: HumaLOG INSULIN (NovoLOG) PER UNIT SC SCH (07:26)
[2021-06-03] MEDS: ADVAIR HFA 115/21MCG INHALER INH SCH (08:07)
[2021-06-03] MEDS: SENOKOT S TAB PO SCH (09:00)
[2021-06-03] MEDS: ASPIRIN 81MG ENTERIC TABLET PO SCH (09:34)
[2021-06-03] MEDS: AMOXICILLIN SUSP 250MG/5ML 100ML BOTTLE (FOR INPATIENT ORDERS) PO SCH (09:34)
[2021-06-03] MEDS: ENOXAPARIN 30MG/0.3ML SYRINGE (J1650 PER 10MG) SC SCH (09:35)
[2021-06-03] MEDS: CYANOCOBALAMIN 500 MCG TAB PO SCH (09:35)
[2021-06-03] MEDS: POTASSIUM CHLORIDE 10MEQ SR TABLET PO SCH (09:35)
[2021-06-03] MEDS: busPIRone 10 MG TAB PO SCH (09:35)
[2021-06-03] MEDS: ACETAMINOPHEN 650MG ER TAB (TYLENOL ARTHRITIS) PO PRN (09:35)
[2021-06-03] MEDS: QUEtiapine FUMARATE 25 MG TAB PO SCH (09:35)
--- NOTE | 2021-06-03 11:10 | DS.PDOC ---
Discharge Summary General Date of Admission May 29, 2021 at 18:50 Date of Discharge 06/03/21 Discharge Summary DISCHARGE DIAGNOSES: 1. Acute parotitis 2. Acute on chronic kidney injury 3. Chronic pelvic and sacral wound COMPLICATIONS/CHIEF COMPLAINT: Dehydration, Parotitis Acute. HOSPITAL COURSE: Ms. Owens, is a 86-year-old female with a past medical history of systolic and diastolic congestive heart failure, hypertension, dyslipidemia, type 2 diabetes mellitus, obstructive sleep apnea on CPAP, rheumatoid arthritis, GERD, dementia with delusions, gout, and cirrhosis presented to the emergency room department at [facility] on 05/29/2021 for facial edema. A CT scan of the neck with contrast was done on 05/29 which noted findings consistent with acute right parotitis. She was started on IV Unasyn with significant improvements. This was transitioned to p.o. oral Augmentin which she would need to take for an additional 3 days. During hospitalization, she was noted to also have acute on chronic kidney disease. This was thought to be due to poor p.o. intake. She was treated with IV fluids. Creatinine at the time of discharge was 1.56 mg/dL. In prior hospitalizations she was noted to be approximately 1.3 to 1.5 mg/dL. She is encouraged to follow-up with a sanforizer or her primary care physician for management of her kidney disease. She complained of a burning sensation in her pelvic and sacral region -as per healthcare proxy she was being treated for this in the longterm. She had findings that were consistent with a candidal rash at this time. Therefore she was started on nystatin ointment that she is encouraged to take for 5 days. If there is no resolution of symptoms, she can follow-up with her primary care physician; at which time a wound care consult can be considered. It was noted patient was on diuretics including furosemide and spironolactone; as well as potassium supplementation. During hospitalization, patient seem to be dehydrated therefore therefore diuretics were asked to be held until 06/06/2021; and hopefully she would be able to follow-up with her primary care physician for appropriate reinitiation. At the time of follow-up, she should have repeat blood work done including CBC and chemistries to ensure her hemoglobin (noted to have normocytic anemia), and renal function are stable as well as electrolytes. Of note, she has a chronic Moraes in place and was changed during this hospitalization. Healthcare proxy made aware of above plan and was in agreement. All questions were answered. DISCHARGE MEDICATIONS: Please see below. ALLERGIES: Please see below. PHYSICAL EXAMINATION ON DISCHARGE: VITAL SIGNS: Please see below. General: Lying in bed, no acute distress Head/Neck/Throat: Trachea midline, mucous membranes moist Eyes: Sclera anicteric, no erythema or discharge Thorax: Normal respiratory effort on room air, lungs clear to auscultation bilaterally, no wheezes/rales/rhonchi Cardiovascular: Normal rate, regular rhythm, normal S1, S2; no S3, S4, rubs/gallops/murmurs Abdomen: Bowel sounds present, soft/nontender/nondistended Genitourinary: No CVA tenderness, Moraes draining yellow urine Musculoskeletal: Moving all extremities, no edema Skin: Warm, dry. Erythema of the pelvic region with satellite lesions also appreciated in the sacral region Neurologic: Awake, alert, and to place and self. She has underlying dementia and at times is belligerent LABORATORY DATA: Please see below. IMAGING: CT Neck with contrast FINDINGS: Nasopharynx: Unremarkable. Oropharynx: Unremarkable. No significant tonsillar enlargement. Hypopharynx: Unremarkable. Larynx: Unremarkable. Normal epiglottis. Retropharyngeal space: Unremarkable. Submandibular/Parotid glands: Right parotid gland is enlarged and heterogenous with fat stranding in the surrounding subcutaneous tissues. Thyroid: Normal. No enlarged or calcified nodules. Lymph nodes: Unremarkable. No lymphadenopathy. Trachea: Visualized trachea is unremarkable. Lungs: Unremarkable as visualized. Bones/joints: Unremarkable. No acute fracture. Soft tissues: Unremarkable. No significant soft tissue swelling. IMPRESSION: Findings likely representing acute right parotitis. PROGNOSIS: Good ACTIVITY: [As tolerated]. DIET: Low-sodium diet with 1500 cc fluid restriction DISPOSITION: halfway facility DISCHARGE INSTRUCTIONS: 1. Follow-up with primary care physician in 5 days 2. Follow-up with nephrology in 10 to 14-day DISCHARGE CONDITION: Stable. TIME SPENT ON DISCHARGE: 25 minutes. Vital Signs/I&Os Vital Signs Date Time Temp Pulse Resp B/P (MAP) Pulse Ox O2 Delivery O2 Flow Rate FiO2 06/03/21 06:00 96.6 56 19 137/60 (85) 99 Room Air I&O- Last 24 Hours up to 6 AM 06/03/21 06:00 Intake Total 930 ml Output Total 675 ml Balance 255 ml Laboratory Data Labs 24H Laboratory Tests 2 06/02/21 12:03: Bedside Glucose (Misc Panel) 104 06/02/21 14:17: Glomerular Filtration Rate 31.3L 06/02/21 18:11: Bedside Glucose (Misc Panel) 147H 06/02/21 21:15: Bedside Glucose (Misc Panel) 153H 06/03/21 06:00: Nucleated Red Blood Cells % (auto) 0.0, Anion Gap 6L, Glomerular Filtration Rate 33.4, Calcium Level 8.2L, C-Reactive Protein, Quantitative 2.96H CBC/BMP Laboratory Tests 06/02/21 14:17 06/03/21 06:00 FSBS Laboratory Tests Test 06/02/21 12:03 06/02/21 18:11 06/02/21 21:15 Range/Units Bedside Glucose (Misc Panel) 104 147 153 83-110 MG/DL Microbiology Microbiology 05/29/21 Urine Culture - Final, Complete Pseudomonas Aeruginosa Discharge Medications Scheduled Amoxicillin/Potassium Clav (Augmentin 500-125 Tablet) 1 Each Tablet, 1 TAB PO BID Aspirin (Aspirin EC) 81 Mg Tab, 81 MG PO DAILY, (Reported) Atorvastatin Calcium (Atorvastatin Calcium) 20 Mg Tab, 20 MG PO QHS, (Reported) Buspirone HCl (Buspirone HCl) 10 Mg Tablet, 10 MG PO TID, (Reported) Cyanocobalamin (Vitamin B-12) (B-12 Dots) 500 Mcg Tablet, 500 MCG PO DAILY, (Reported) Cyclosporine (Restasis Multidose) 0.05 % Emu, 1 DROP OU BID, (Reported) Furosemide (Furosemide) 40 Mg Tablet, 60 MG PO DAILY, (Reported) HOLD UNTIL 06/06/21 Latanoprost (Xalatan) 0.005 % Meryl, 1 DROP OU QHS, (Reported) Nystatin (Nystatin) 15 Gm Oint...g., 0 DOSE TOP Q8H Apply to pelvic and sacral region Quetiapine Fumarate (Quetiapine Fumarate) 25 Mg Tablet, 25 MG PO TID, (Reported) Salmeterol/Fluticasone (Advair 250-50 Diskus) 1 Each Blst.w.dev, 1 PUFF INH BID, (Reported) Sennosides/Docusate Sodium (Senna-S 8.6-50 mg Tablet) 8.6 Mg-50 Mg Tablet, 8.6 MG PO BID, (Reported) Sertraline HCl (Sertraline HCl) 50 Mg Tablet, 50 MG PO QHS, (Reported) Sitagliptin Phosphate (Januvia) 25 Mg Tab, 25 MG PO DAILY, (Reported) Spironolactone (Spironolactone) 25 Mg Tablet, 12.5 MG PO DAILY, (Reported) ON HOLD UNTIL 06/06/21 Scheduled PRN Acetaminophen (Tylenol Arthritis) 650 Mg Tablet.er, 650 MG PO BID PRN for PAIN LEVEL 1-4, (Reported) Acetaminophen (Acetaminophen) 325 Mg Tablet, 650 MG PO Q4H PRN for FEVER, (Reported) Albuterol Sulfate (Ventolin Hfa) 18 Gm Hfa.aer.ad, 2 PUFF INH Q4H PRN for SOB/WHEEZING, (Reported) Bisacodyl (Bisacodyl) 10 Mg Supp.rect, 10 MG OH DAILY PRN for CONSTIPATION, (Reported) Glucagon,Human Recombinant (Glucagon Emergency Kit) 1 Mg Vial, 1 MG IM ASDIREC MANN PRN for LOW BLOOD SUGAR, (Reported) FSBS LESS THAN 60 Allergies Coded Allergies: Sulfa (Sulfonamide Antibiotics) (Verified Allergy, Unknown, 12/19/18) codeine (Verified Allergy, Unknown, 12/19/18) doxycycline (Verified Allergy, Unknown, 12/19/18) streptomycin (Verified Allergy, Unknown, 12/19/18) ANJELICA FLORES M.D. Jun 03, 2021 11:06
[2021-06-03] MEDS ORDERED: AUGM500T34 PO (11:21)
[2021-06-03] MEDS ORDERED: NYST10OI TOP (11:29)
[2021-06-03] MEDS ORDERED: NYSTATIN OINTMENT 15 GM TOP SCH (14:00)
== END 2021-06-03 12:10 | DRG 155 ==
LOC: M ED 11:24 → EDBD 11:24 → M ED INP 18:50 → ENRESERV 20:43 → M MS5PR 21:45
PROVIDERS: ADMIT Neuromusculoskeletal Medicine & OMM; ATTEND Internal Medicine
DX: K11.21 Acute sialoadenitis (principal); I50.42 Chronic combined systolic (congestive) and diastolic (congestive) heart failure; I44.2 Atrioventricular block, complete; N17.9 Acute kidney failure, unspecified; I13.0 Hypertensive heart and chronic kidney disease with heart failure and stage 1 through stage 4 chronic kidney disease, or unspecified chronic kidney disease; E78.5 Hyperlipidemia, unspecified; E11.22 Type 2 diabetes mellitus with diabetic chronic kidney disease; G47.33 Obstructive sleep apnea (adult) (pediatric); M06.9 Rheumatoid arthritis, unspecified; K21.9 Gastro-esophageal reflux disease without esophagitis; E66.9 Obesity, unspecified; G25.81 Restless legs syndrome; F41.9 Anxiety disorder, unspecified; G30.9 Alzheimer's disease, unspecified; F02.80 Dementia in other diseases classified elsewhere, unspecified severity, without behavioral disturbance, psychotic disturbance, mood disturbance, and anxiety; H40.9 Unspecified glaucoma; I25.10 Atherosclerotic heart disease of native coronary artery without angina pectoris; M10.9 Gout, unspecified; L40.9 Psoriasis, unspecified; N18.9 Chronic kidney disease, unspecified; M41.9 Scoliosis, unspecified; B37.2 Candidiasis of skin and nail; E86.0 Dehydration; Z90.49 Acquired absence of other specified parts of digestive tract; Z95.0 Presence of cardiac pacemaker; Z89.421 Acquired absence of other right toe(s); Z98.1 Arthrodesis status; Z20.822 Contact with and (suspected) exposure to COVID-19; Z79.82 Long term (current) use of aspirin; Z79.899 Other long term (current) drug therapy; Z88.2 Allergy status to sulfonamides; Z88.5 Allergy status to narcotic agent; Z88.1 Allergy status to other antibiotic agents; Z88.8 Allergy status to other drugs, medicaments and biological substances; Z68.39 Body mass index [BMI] 39.0-39.9, adult

== ENCOUNTER → 2021-06-05 | Outpatient (REF) | payer MEDICARE, OTHER, MEDICAID ==
[~2021-06-05] MED LIST changes: +ACET1TAB55 PO; +ACET650T61 PO; +AUGM500T34 PO; +BISA10SU20 PR; +ERTA1INJ2 IV; +FLEEENE12 PR; +K-TA10TA PO; +MILKSUS3 PO; +NYST10OI TOP; +QC A650T3 PO; +SENN-122 PO; +SENN-80 PO; +SPIR-10 PO
[2021-06-05 13:07] LABS: HEMATOCRIT 39.5 % (36.0-47.0); HEMOGLOBIN 12.2 g/dl (12.0-15.5); MEAN CORPUSCULAR HGB CONC 30.9 g/dl (32.0-36.5); PLATELET COUNT, AUTOMATED 227 10^3/uL (150-450); WHITE BLOOD COUNT 9.8 10^3/uL (4.0-10.0)
[2021-06-05 13:38] LABS: CALCIUM LEVEL 8.9 MG/DL (8.8-10.2); CREATININE FOR GFR 1.35 MG/DL (0.55-1.30); GLOMERULAR FILTRATION RATE 39.5 (>32); POTASSIUM SERUM 4.9 MEQ/L (3.5-5.1)
== END ==
PROVIDERS: ATTEND Internal Medicine
DX: N18.9 Chronic kidney disease, unspecified (principal)

== ENCOUNTER → 2021-06-09 | Outpatient (REF) | payer MEDICARE, OTHER, MEDICAID | PROVIDERS: ATTEND Nurse Practitioner Adult Health | DX: N18.9 Chronic kidney disease, unspecified (principal); Z53.8 Procedure and treatment not carried out for other reasons ==

== ENCOUNTER → 2021-06-10 | Outpatient (REF) | payer MEDICARE, OTHER, MEDICAID ==
[2021-06-10 12:48] LABS: HEMATOCRIT 34.5 % (36.0-47.0); HEMOGLOBIN 10.7 g/dl (12.0-15.5); MEAN CORPUSCULAR VOLUME 83.7 fl (80.0-96.0); PLATELET COUNT, AUTOMATED 217 10^3/uL (150-450); RED BLOOD COUNT 4.12 10^6/uL (4.00-5.40); WHITE BLOOD COUNT 9.9 10^3/uL (4.0-10.0)
[2021-06-10 13:16] LABS: ERYTHROCYTE SEDIMENTATION RATE 58 mm/hr (0-30)
[2021-06-10 13:23] LABS: C REACTIVE PROTEIN QUANTITATIV 2.72 MG/DL (0.00-0.30); CALCIUM LEVEL 8.9 MG/DL (8.8-10.2); CREATININE FOR GFR 1.37 MG/DL (0.55-1.30); GLOMERULAR FILTRATION RATE 38.8 (>32); POTASSIUM SERUM 4.9 MEQ/L (3.5-5.1); URIC ACID 8.5 MG/DL (2.6-6.0)
--- NOTE | 2021-06-10 16:10 | REP ---
INDICATION: RIGHT WRIST AND HAND PAIN. COMPARISON: None. TECHNIQUE: AP and oblique views of the right hand are obtained. FINDINGS: Two views of the right hand demonstrate diffuse osteopenia. There are osteoarthritic changes affecting the IP joint of the thumb, the DIP joint of the index, the DIP and PIP joints of the long ring and small finger. No fracture is seen. No acute bony abnormality. There is apex ulnar angulation at the DIP joint of the small finger but this appears chronic and associated with erosive osteoarthritis. No fracture or subluxation is seen. No opaque foreign body noted. IMPRESSION: Evidence of erosive osteoarthritis. Diffuse osteoporosis. No acute bony abnormality. <Electronically signed by De Rangel > 06/10/21 [id number]
--- NOTE | 2021-06-10 16:13 | REP ---
INDICATION: RIGHT WRIST AND HAND PAIN COMPARISON: None. TECHNIQUE: AP and lateral views right wrist. FINDINGS: Evaluation is limited by osteopenia and degenerative changes. Soft tissue swelling is suggested. No obvious acute fracture or dislocation. IMPRESSION: Swelling. No obvious acute fracture or dislocation.. <Electronically signed by Karl Chicas > 06/10/21 [id number]
== END ==
PROVIDERS: ATTEND Nurse Practitioner Adult Health
DX: M19.041 Primary osteoarthritis, right hand (principal); M81.0 Age-related osteoporosis without current pathological fracture; M79.89 Other specified soft tissue disorders; M25.531 Pain in right wrist

== ENCOUNTER → 2021-06-10 | Outpatient (REF) | payer MEDICARE, OTHER, MEDICAID | PROVIDERS: ATTEND Internal Medicine | DX: M19.041 Primary osteoarthritis, right hand (principal); M81.0 Age-related osteoporosis without current pathological fracture; M79.89 Other specified soft tissue disorders; M25.531 Pain in right wrist ==

== ENCOUNTER → 2021-06-11 | Outpatient (REF) | payer MEDICARE, OTHER, MEDICAID ==
[2021-06-11 11:35] LABS: ERYTHROCYTE SEDIMENTATION RATE 58 mm/hr (0-30)
[2021-06-11 11:37] LABS: HEMOGLOBIN 11.3 g/dl (12.0-15.5); MEAN CORPUSCULAR HEMOGLOBIN 26.2 pg (27.0-33.0); MEAN CORPUSCULAR HGB CONC 31.4 g/dl (32.0-36.5); MEAN CORPUSCULAR VOLUME 83.3 fl (80.0-96.0); PLATELET COUNT, AUTOMATED 226 10^3/uL (150-450); RED BLOOD COUNT 4.32 10^6/uL (4.00-5.40)
[2021-06-11 13:14] LABS: ALBUMIN 2.3 GM/DL (3.2-5.2); ALT/SGPT 17 U/L (12-78); BILIRUBIN,DIRECT < 0.1 MG/DL (0.0-0.2); BILIRUBIN,TOTAL 0.3 MG/DL (0.2-1.0); BLOOD UREA NITROGEN 18 MG/DL (7-18); C REACTIVE PROTEIN QUANTITATIV 1.88 MG/DL (0.00-0.30); CALCIUM LEVEL 8.6 MG/DL (8.8-10.2); CARBON DIOXIDE LEVEL 24 MEQ/L (21-32); CHLORIDE LEVEL 112 MEQ/L (98-107); CREATININE FOR GFR 1.24 MG/DL (0.55-1.30); GLOMERULAR FILTRATION RATE 43.6 (>32); GLUCOSE, FASTING 141 MG/DL (70-100); POTASSIUM SERUM 5.1 MEQ/L (3.5-5.1); SODIUM LEVEL 142 MEQ/L (136-145); URIC ACID 8.5 MG/DL (2.6-6.0)
== END ==
PROVIDERS: ATTEND Internal Medicine
DX: R19.5 Other fecal abnormalities (principal); N18.9 Chronic kidney disease, unspecified

== ENCOUNTER → 2021-06-23 | Outpatient (REF) | payer MEDICARE, OTHER, MEDICAID ==
[2021-06-23 12:07] LABS: BASO # 0.1 10^3/uL (0.0-0.2); BASO % 0.6 % (0.0-1.0); EOS # 0.4 10^3/uL (0.0-0.5); EOS % 4.7 % (0.0-3.0); HEMATOCRIT 39.8 % (36.0-47.0); HEMOGLOBIN 12.4 g/dl (12.0-15.5); LYMPH # 1.4 10^3/uL (1.5-5.0); LYMPH % 16.1 % (24.0-44.0); MEAN CORPUSCULAR HEMOGLOBIN 26.1 pg (27.0-33.0); MEAN CORPUSCULAR HGB CONC 31.2 g/dl (32.0-36.5); MEAN CORPUSCULAR VOLUME 83.6 fl (80.0-96.0); MONO # 0.6 10^3/uL (0.0-0.8); MONO % 6.6 % (2.0-8.0); NEUTROPHILS # 6.3 10^3/uL (1.5-8.5); NEUTROPHILS % 71.3 % (36.0-66.0); PLATELET COUNT, AUTOMATED 231 10^3/uL (150-450); RED BLOOD COUNT 4.76 10^6/uL (4.00-5.40); WHITE BLOOD COUNT 8.9 10^3/uL (4.0-10.0)
[2021-06-23 12:32] LABS: CALCIUM LEVEL 8.8 MG/DL (8.8-10.2); CREATININE FOR GFR 1.3 MG/DL (0.55-1.30); GLOMERULAR FILTRATION RATE 41.2 (>32); URIC ACID 7.9 MG/DL (2.6-6.0)
== END ==
PROVIDERS: ATTEND Nurse Practitioner Adult Health
DX: M10.9 Gout, unspecified (principal)

== ENCOUNTER → 2021-06-26 | Outpatient (REF) | payer MEDICARE, OTHER, MEDICAID ==
[2021-06-26 14:02] LABS: HEMATOCRIT 36.4 % (36.0-47.0); HEMOGLOBIN 11.2 g/dl (12.0-15.5); MEAN CORPUSCULAR HEMOGLOBIN 25.9 pg (27.0-33.0); MEAN CORPUSCULAR HGB CONC 30.8 g/dl (32.0-36.5); MEAN CORPUSCULAR VOLUME 84.1 fl (80.0-96.0); PLATELET COUNT, AUTOMATED 217 10^3/uL (150-450); RED BLOOD COUNT 4.33 10^6/uL (4.00-5.40); WHITE BLOOD COUNT 6.5 10^3/uL (4.0-10.0)
[2021-06-26 14:33] LABS: CALCIUM LEVEL 8.9 MG/DL (8.8-10.2); CREATININE FOR GFR 1.2 MG/DL (0.55-1.30); GLOMERULAR FILTRATION RATE 45.2 (>32); POTASSIUM SERUM 4.7 MEQ/L (3.5-5.1)
== END ==
PROVIDERS: ATTEND Nurse Practitioner Adult Health
DX: R41.82 Altered mental status, unspecified (principal); R53.83 Other fatigue

== ENCOUNTER → 2021-06-30 | Outpatient (REF) | payer MEDICARE, OTHER, MEDICAID | PROVIDERS: ATTEND Nurse Practitioner Adult Health | DX: M10.9 Gout, unspecified (principal) ==

== ENCOUNTER → 2021-07-04 | Outpatient (REF) | payer MEDICARE, OTHER, MEDICAID ==
[2021-07-04 16:02] LABS: CALCIUM LEVEL 8.8 MG/DL (8.8-10.2); CREATININE FOR GFR 1.21 MG/DL (0.55-1.30); GLOMERULAR FILTRATION RATE 44.8 (>32); POTASSIUM SERUM 4.2 MEQ/L (3.5-5.1)
== END ==
PROVIDERS: ATTEND Internal Medicine
DX: E86.0 Dehydration (principal)

== ENCOUNTER → 2021-08-05 | Outpatient (REF) | payer MEDICARE, OTHER, MEDICAID ==
[2021-08-05 16:19] LABS: APPEARANCE, URINE HAZY (CLEAR); BACTERIA, URINE AUTO 1+ (NEGATIVE); BILIRUBIN, URINE AUTO NEGATIVE (NEGATIVE); BLOOD, URINE BLOOD 2+ (NEGATIVE); COLOR, URINE YELLOW (YELLOW); GLUCOSE, URINE (UA) AUTO NEGATIVE (NEGATIVE); KETONE, URINE AUTO NEGATIVE (NEGATIVE); LEUKOCYTE ESTERASE, URINE AUTO 2+ (NEGATIVE); MUCUS, URINE SMALL (NEGATIVE); NITRITE, URINE AUTO NEGATIVE (NEGATIVE); PROTEIN, URINE AUTO 2+ mg/dL (NEGATIVE); RBC, URINE AUTO 30 /HPF (0-3); SPECIFIC GRAVITY URINE AUTO 1.011 (1.002-1.035); SQUAMOUS EPITHELIAL CELL UR AU 0 /HPF (0-6); UROBILINOGEN, URINE AUTO 0.2 mg/dL (0.0-2.0); WBC, URINE AUTO 70 /HPF (0-3)
== END ==
LOC: EEVIPCON 12:59
PROVIDERS: ATTEND Nurse Practitioner Primary Care
DX: R41.82 Altered mental status, unspecified (principal)

== ENCOUNTER → 2021-08-05 | Outpatient (REF) | payer MEDICARE, OTHER, MEDICAID ==
[2021-08-05 13:56] LABS: BASO # 0.1 10^3/uL (0.0-0.2); BASO % 0.7 % (0.0-1.0); EOS # 0.5 10^3/uL (0.0-0.5); HEMATOCRIT 40.6 % (36.0-47.0); LYMPH # 1.3 10^3/uL (1.5-5.0); LYMPH % 14.6 % (24.0-44.0); MEAN CORPUSCULAR HEMOGLOBIN 25.5 pg (27.0-33.0); MEAN CORPUSCULAR HGB CONC 29.6 g/dl (32.0-36.5); MEAN CORPUSCULAR VOLUME 86.4 fl (80.0-96.0); MONO # 0.5 10^3/uL (0.0-0.8); NEUTROPHILS # 6.5 10^3/uL (1.5-8.5); PLATELET COUNT, AUTOMATED 243 10^3/uL (150-450)
[2021-08-05 14:17] LABS: CALCIUM LEVEL 9.1 MG/DL (8.8-10.2); CREATININE FOR GFR 1.1 MG/DL (0.55-1.30); POTASSIUM SERUM 4.2 MEQ/L (3.5-5.1)
== END ==
PROVIDERS: ATTEND Nurse Practitioner Primary Care
DX: R41.82 Altered mental status, unspecified (principal)

== ENCOUNTER → 2021-08-25 | Outpatient (REF) | payer MEDICARE, OTHER, MEDICAID | PROVIDERS: ATTEND Nurse Practitioner Primary Care | DX: E11.9 Type 2 diabetes mellitus without complications (principal) ==

== ENCOUNTER → 2021-10-01 | Outpatient (REF) | payer MEDICARE, OTHER, MEDICAID ==
[2021-10-01 09:57] LABS: CALCIUM LEVEL 8.6 MG/DL (8.8-10.2); PHOSPHORUS LEVEL 3.2 MG/DL (2.5-4.9)
[2021-10-01 10:04] LABS: PTH INTACT 54.5 PG/ML (18.5-88.0)
== END ==
PROVIDERS: ATTEND Nurse Practitioner Primary Care
DX: N18.9 Chronic kidney disease, unspecified (principal)

== ENCOUNTER → 2021-11-05 | Outpatient (REF) | payer MEDICARE, OTHER, MEDICAID ==
[~2021-11-05] MED LIST changes: -D31000TA2 PO; +VITA100093 PO
== END ==
PROVIDERS: ATTEND Internal Medicine
DX: E55.9 Vitamin D deficiency, unspecified (principal); Z79.899 Other long term (current) drug therapy

== ENCOUNTER → 2021-11-19 | Outpatient (REF) | payer MEDICARE, OTHER, MEDICAID | PROVIDERS: ATTEND Internal Medicine | DX: R19.5 Other fecal abnormalities (principal) ==

== ENCOUNTER → 2022-02-07 | Outpatient (REF) ==
[~2022-02-07] MED LIST changes: +ALBU2.5V10 INH; -ALBU83IN INH
== END ==
PROVIDERS: ATTEND Internal Medicine
DX: R82.998 Other abnormal findings in urine (principal)

== ENCOUNTER → 2022-02-09 | Outpatient (CLI) | payer MEDICARE, OTHER, MEDICAID ==
[2022-02-09 11:44] LABS: BASO # 0.1 10^3/uL (0.0-0.2); BASO % 0.8 % (0.0-1.0); EOS # 1.1 10^3/uL (0.0-0.5); EOS % 11.2 % (0.0-3.0); HEMATOCRIT 37.2 % (36.0-47.0); HEMOGLOBIN 11.6 g/dl (12.0-15.5); LYMPH # 1.3 10^3/uL (1.5-5.0); LYMPH % 13.7 % (24.0-44.0); MEAN CORPUSCULAR HEMOGLOBIN 27.4 pg (27.0-33.0); MEAN CORPUSCULAR HGB CONC 31.2 g/dl (32.0-36.5); MEAN CORPUSCULAR VOLUME 87.7 fl (80.0-96.0); MONO # 0.5 10^3/uL (0.0-0.8); MONO % 5.2 % (2.0-8.0); NEUTROPHILS # 6.7 10^3/uL (1.5-8.5); NEUTROPHILS % 68.4 % (36.0-66.0); PLATELET COUNT, AUTOMATED 239 10^3/uL (150-450); RED BLOOD COUNT 4.24 10^6/uL (4.00-5.40); WHITE BLOOD COUNT 9.8 10^3/uL (4.0-10.0)
[2022-02-09 12:17] LABS: ALBUMIN 2.3 GM/DL (3.2-5.2); BILIRUBIN,TOTAL 0.5 MG/DL (0.2-1.0); CALCIUM LEVEL 8.5 MG/DL (8.8-10.2); CREATININE FOR GFR 1.25 MG/DL (0.55-1.30); GLOMERULAR FILTRATION RATE 43.2 (>32); POTASSIUM SERUM 4.5 MEQ/L (3.5-5.1)
== END ==
LOC: M LAB 11:04 → M RAD 11:04
PROVIDERS: ATTEND Internal Medicine
DX: Z01.818 Encounter for other preprocedural examination (principal); Z11.52 Encounter for screening for COVID-19; Z01.89 Encounter for other specified special examinations

== ENCOUNTER → 2022-07-10 | Outpatient (REF) ==
[~2022-07-10] MED LIST changes: +CEVI30CA6 PO; -CEVI30CAP PO; +POTA-150 PO; -POTA10TA17 PO
== END ==
PROVIDERS: ATTEND Internal Medicine
DX: R05.9 Cough, unspecified (principal); R09.02 Hypoxemia; I51.7 Cardiomegaly; Z95.0 Presence of cardiac pacemaker

== ENCOUNTER → 2022-07-10 | Outpatient (REF) | payer MEDICARE, OTHER, MEDICAID | PROVIDERS: ATTEND Nurse Practitioner Family | DX: R05.9 Cough, unspecified (principal) ==

== ENCOUNTER → 2022-09-16 | Outpatient (REF) | payer MEDICARE, OTHER, MEDICAID | PROVIDERS: ATTEND Nurse Practitioner Family | DX: N39.0 Urinary tract infection, site not specified (principal); Z53.8 Procedure and treatment not carried out for other reasons ==